=== PATIENT | male | born 1980 | race African-American/Black ===

== ENCOUNTER 2025-04-27 05:40 | Emergency (ER) | payer BC, SELFPAY ==
[2025-04-27 05:41] VITALS: BP 129/75; PULSE 83; RESP 16; TEMP 36.9; O2SAT 98; BMI 27.8
[2025-04-27] MEDS: Tetracaine 0.5% Ophthalmic Bottle 1 DRP OPHTHALMIC (06:09)
--- OUTSIDE RECORDS SUMMARY | 2025-04-27 07:15 | XMS RPT_ITS | CCD ---
Author Organization [facility] Care Team Providers Care Seed Sales Manager Name Role Phone Doroghazi DMD, Alejandra Unavailable Unavailab le Douglas OD, Nancy Unavailable Unavailable Doroghazi DMD, Alejandra Unavailable Unavailab le Ondobo TRANSLATOR INTERPRETER, Crow Unavailable Unavailable Doroghazi DMD, Alejandra Unavailable Unavailab le Douglas OD, Nancy Unavailable Unavailable Doroghazi DMD, Alejandra Unavailable Unavailab le Ondobo TRANSLATOR INTERPRETER, Crow Unavailable Unavailable Wilfrido Beth Attending Unavailab le *SELF, REFERRED Referring Unavailable PROVIDER, UNKNOWN Attending Unavailable PROVIDER, UNKNOWN Admitting Unavailable Unavailable Primary Care Provider UnavailDOMINICK Tello Attending Unavailable BASIA MURILLO Primary Care Unavaila ROCIO Daley Admitting Unavailable DOMINICK CUMMINGS Consulting Unavailable DARLING ACKERMAN Attending UnavailDARLING Keita Consulting Unavailabl e Generic Provider MD, No Assigned Pcp Primary Car e Provider Unavailable BETH AMEZCUAA Attending Unavailable TAMNILA AKINA Admitting Unavailable TAMBETH DOTSONA Attending Unavailable GENERIC PROVIDER, NO ASSIGNED PCP Primary Care Unavailable ABHAY PERDUE Attending Unavailable WANDY REGAN Attending Unavailable SAM BRANDT Attending Unavailable Allergies Allergy Classification Reported Allergen(s) Allergy Type Date of Onset Reaction(s) Facility (3 sources) penicillin; Translations: [PENICILLIN] drug allergy 8 [facility] (11 sources) Penicillins; Translations: [PENICILLINS] Propensity to adverse reactions to drug (disorder) [address] [facility] (2 sources) traMADol; Translations: [TRAMADOL] Drug Allergy 8 [facility] Other [place] [facility] Medications Current Medications Medication Drug Class(es) Dates Sig (Normalized) Sig (Original) Acetaminophen (1 source) Start: 12-01-2023 take 1 tablet by mouth every four hours as needed acetaminophen (Tylenol) tablet 650 mg acetaminophen 325 mg / HYDROcodone bitartrate 5 mg oral tablet (1 source) Opioid Agonist Start: 12-01-2023 take 1 tablet by mouth every six hours as needed HYDROcodone-acetami nophen ([place]) 5-325 mg per tablet 1 tablet acetaminophen 325 mg / oxyCODONE hydrochloride 7.5 mg oral tablet (2 sources) Opioid Agonist Start: 12-05-2023 End: 12-13-2023 take 1 tablet by mouth twice daily oxyCODONE-acetamino phen (Percocet) 7.5-325 mg tablet Indications: Sialoadenitis of submandibular gland , Sialolithiasis of submandibular gland Take 1 tablet by mouth 2 times a day for 7 days. 14 tablet 0 12/05/2023 12/13/2023 Discontinued (Stop Taking at Discharge) benzocaine 15 mg / menthol 3.6 mg oral lozenge (1 source) Standardized Chemical Allergen Start: 12-01-2023 1 lozenge, Mouth/Throat, Every 2 hour PRN, sore throat, Starting on 12/01/23 at 0032 calcium chloride 0.0014 meq/ml / potassium chloride 0.004 meq/ml / sodium chloride 0.103 meq/ml / sodium lactate 0.028 meq/ml injectable solution (1 source) Start: 12-13-2023 lactated Ringer's infusion chlorhexidine gluconate 1.2 mg/ml mouthwash (5 sources) Start: 12-13-2023 End: 01-12-2024 chlorhexidine (Peridex) 0.12 % solution Indications: Sialoadenitis of submandibular gland Use 15 mL in the mouth or throat if needed for wound care for up to 14 days. 120 mL 0 12/13/2023 12/13/2023 Discontinued (Reorder) Start: 11-28-2023 chlorhexidine (Peridex) 0.12 % solution SWISH AND SPIT WITH 15 TO 30 ML BY MOUTH IN THE MORNING AND IN THE EVENING FOR 1 WEEK THEN STOP 0 11/28/2023 Active ciprofloxacin 500 mg oral tablet (3 sources) Quinolone Antimicrobial Start: 12-05-2023 End: 12-15-2023 take 1 tablet by mouth twice daily ciprofloxacin (Cipro) 500 mg tablet Indications: Sialoadenitis of submandibular gland , Sialolithiasis of submandibular gland Take 1 tablet (500 mg) by mouth 2 times a day for 10 days. 20 tablet 0 12/05/2023 12/13/2023 Discontinued (Stop Taking at Discharge) clindamycin 300 mg oral capsule (7 sources) Lincosamide Antibacterial Start: 12-01-2023 End: 12-13-2023 take 1 capsule by mouth every six hours clindamycin (Cleocin) 300 mg capsule Indications: Submandibular abscess Take 1 capsule (300 mg) by mouth every 6 hours for 7 days. 28 capsule 0 12/01/2023 12/13/2023 Discontinued (Stop Taking at Discharge) Start: 12-01-2023 End: 12-01-2023 take 600 mg intravenously every six hours clindamycin (Cleocin) 600 mg in dextrose 5% water 50 mL Start: 11-30-2023 End: 11-30-2023 clindamycin in D5W (Cleocin) IVPB 900 mg cyclobenzaprine hydrochloride 10 mg oral tablet (1 source) Muscle Relaxant Start: 06-12-2018 End: 07-18-2018 take 1 tablet by mouth once daily as needed for muscle spasms cyclobenzaprine 10 mg tablet take 1 tablet by oral route every day as needed for muscle spasm 10 MG - Active dexamethasone phosphate 10 mg/ml injectable solution (2 sources) Corticosteroid Start: 12-01-2023 dexAMETHasone (Decadron) injection 10 mg Start: 12-01-2023 End: 12-01-2023 dexAMETHasone (Decadron) inj ection 10 mg dextromethorphan hydrobromide 2 mg/ml / guaiFENesin 20 mg/ml oral solution (1 source) Uncompetitive H-acgmuo-A-aspartate Receptor Antagonist, Sigma-1 Agonist Start: 12-01-2023 take 5 mL by mouth every four hours as needed 5 mL, oral, Every 4 hours PRN, cough, Starting on 12/01/23 at 0032 12 hr guaiFENesin 600 mg extended release oral tablet (1 source) Start: 12-01-2023 take 600 mg by mouth every twelve hours as needed for congestion 600 mg, oral, Every 12 hours PRN, congestion, Starting on 12/01/23 at 0032 Administer with plenty of fluids to ensure proper action. Do not crush, chew, or split. 1 ml HYDROmorphone hydrochloride 1 mg/ml cartridge (2 sources) Opioid Agonist Start: 12-13-2023 HYDROmorphone (Dilaudid) injection 0.5 mg Start: 12-13-2023 HYDROmorphone (Dilaudid) injection 0.2 mg ibuprofen 800 mg oral tablet (1 source) Nonsteroidal Anti-inflammatory Drug Start: 06-12-2018 End: 07-18-2018 take 1 tablet by mouth three times daily at mealtime ibuprofen 800 mg tablet take 1 tablet by oral route 3 times every day with food 800 MG - Active 1 ml ketorolac tromethamine 30 mg/ml injection (2 sources) Nonsteroidal Anti-inflammatory Drug, Cyclooxygenase Inhibitor Start: 11-30-2023 End: 12-02-2023 take 15 mg intravenously every eight hours as needed ketorolac (Toradol) injection 15 mg labetalol hydrochloride 5 mg/ml injectable solution (1 source) beta-Adrenergic Goran Start: 12-13-2023 labetaloL (Normodyne,Tranda te) injection 5 mg loratadine 10 mg oral tablet (2 sources) Start: 08-05-2019 take 1 tablet by mouth once daily loratadine (Claritin) 10 mg tablet Take 1 tablet (10 mg) by mouth once daily. 0 08/05/2019 Active omeprazole 20 mg delayed release oral capsule (2 sources) Proton Pump Inhibitor Start: 04-28-2022 take 1 capsule by mouth once daily omeprazole (PriLOSEC) [address] capsule Take 1 capsule (20 mg) by mouth once daily. 0 04/28/2022 Active 2 ml ondansetron 2 mg/ml injection (1 source) Serotonin-3 Receptor Antagonist Start: 12-13-2023 ondansetron (Zofran) injection 4 mg ondansetron ODT (Zofran-ODT) disintegrating tablet 4 mg (1 source) Start: 12-01-2023 take 1 tablet by mouth every eight hours as needed ondansetron ODT (Zofran-ODT) disintegrating tablet 4 mg oxyCODONE hydrochloride 5 mg oral tablet (1 source) Opioid Agonist Start: 12-13-2023 take 1 tablet by mouth every six hours as needed oxyCODONE (Roxicodone) immediate release tablet 5 mg oxygen (O2) therapy (1 source) Start: 12-13-2023 oxygen (O2) therapy pantoprazole 40 mg injection (1 source) Proton Pump Inhibitor Start: 12-01-2023 End: 12-04-2023 pantoprazole (ProtoNix) injection 40 mg polyethylene glycol [id number] mg powder for oral solution (1 source) Osmotic Laxative Start: 12-01-2023 take 17 g by mouth every twenty-four hours as needed 17 g, oral, Daily PRN, constipation, Starting on 12/01/23 at 0032 Bowel Regimen - for prevention of constipation. predniSONE 20 mg oral tablet (5 sources) Start: 12-02-2023 End: 12-13-2023 predniSONE (Deltasone) 20 mg tablet Indications: Submandibular abscess Take 2 tablets (40 mg) by mouth once daily for 7 days. Do not start before December 02, 2023. 14 tablet 0 12/02/2023 12/13/2023 Discontinued (Stop Taking at Discharge) Start: 12-01-2023 End: 12-08-2023 predniSONE (Deltasone) table t 40 mg promethazine (Phenergan) 6.25 mg in sodium chloride 0.9% 50 mL IV (1 source) Start: 12-13-2023 promethazine (Phenergan) 6.25 mg in sodium chloride 0.9% 50 mL IV raNITIdine 150 mg oral tablet (1 source) Histamine-2 Receptor Antagonist Start: 06-12-2018 End: 07-18-2018 take 1 tablet by mouth twice daily as needed ranitidine 150 mg tablet take 1 tablet by oral route 2 times every day as needed 150 MG - Active 1000 ml sodium chloride 9 mg/ml injection (2 sources) Start: 11-30-2023 End: 12-01-2023 take 100 mL intravenously every hour 100 mL/hr, intravenous, Continuous, Starting on 12/01/23 at 0035, For 12 hours sulfamethoxazole 800 mg / trimethoprim 160 mg oral tablet (1 source) Dihydrofolate Reductase Inhibitor Antibacterial, Sulfonamide Antimicrobial Start: 12-13-2023 End: 12-20-2023 take 1 tablet by mouth twice daily sulfamethoxazole- trimethoprim (Bactrim DS) 800-160 mg tablet Indications: Sialoadenitis of submandibular gland Take 1 tablet by mouth 2 times a day for 7 days. 14 tablet 0 12/13/2023 12/20/2023 Active traMADol hydrochloride 50 mg oral tablet (1 source) Opioid Agonist Start: 12-13-2023 End: 12-18-2023 take 1 tablet by mouth every six hours for pain traMADol (Ultram) 50 mg tablet Indications: Sialoadenitis of submandibular gland Take 1 tablet (50 mg) by mouth every 6 hours if needed for severe pain (7 - 10) for up to 5 days. 15 tablet 0 12/13/2023 12/18/2023 Active Completed/Discontinued Medications Medication Drug Class(es) Dates Sig (Normalized) Sig (Original) iohexol (OMNIPaque) 350 mg iodine/mL solution 75 mL (1 source) Start: 11-30-2023 End: 11-30-2023 iohexol (OMNIPaque) 350 mg iodine/mL solution 75 mL lidocaine hydrochloride 20 mg/ml mucous membrane topical solution (1 source) Antiarrhythmic, Amide Local Anesthetic Start: 11-30-2023 End: 11-30-2023 lidocaine (Xylocaine) 2 % mouth solution 1.25 mL Problems Active Problems Problem Classification Problem Date Documented Date Episodic/Chronic Blindness and vision defects (6 sources) Myopia, bilateral; Translations: [Regular astigmatism, bilateral] Episodic Diseases of mouth; excluding dental (20 sources) Abscess of submandibular region; Translations: [Cellulitis and abscess of mouth] Onset: 11-30-2023 11-30-2023 Episodic Esophageal disorders (1 source) Gastro-esophageal reflux disease without esophagitis Chronic Hemorrhoids (2 sources) Perianal venous thrombosis; Translations: [Perianal venous thrombosis] Onset: 03-01-2024 Episodic Immunizations and screening for infectious disease (1 source) Encounter for immunization Episodic Lymphadenitis (8 sources) Submandibular lymphadenopathy; Translations: [Localized enlarged lymph nodes] Onset: 11-30-2023 12-01-2023 Episodic Medical examination/evaluatio n (3 sources) Routine general medical examination at a health care facility Episodic Other nervous system disorders (1 source) Other chronic pain; Translations: [Other chronic pain] Onset: 09-19-2017 Chronic Other skin disorders (1 source) Vitiligo Episodic Schizophrenia and other psychotic disorders (8 sources) Paranoid type schizophrenia, unspecified; Translations: [Paranoid schizophrenia] Onset: 04-22-2010 Chronic Spondylosis; intervertebral disc disorders; other back problems (2 sources) Low back pain; Translations: [Low back pain] Onset: 09-19-2017 Episodic Substance-related disorders (1 source) Nicotine dependence, unspecified, uncomplicated Chronic Unclassified (1 source) Body mass index (BMI) 28.0-28.9, adult Onset: 06-12-2018 06-12-2018 Episodic Past or Other Problems Problem Classification Problem Date Documented Da te Episodic/Chronic Disorders of teeth and jaw (20 sources) Dental caries on pit and fissure surface penetrating into pulp; Translations: [Encounter for dental examination and cleaning without abnormal findings] Onset: 09-24-2017 12-26-2017 Episodic Unclassified (2 sources) Onset: 12-06-2023 12-06-2023 Results Test Name Value Interpretation Reference Range Facility CONSULTon 03-02-2024 CONSULT ------ -- Attestation signed by Indigo Moncada MD at 03/03/2024 9:23 AM I agree with the above plan. -- [facility] General Surgery CONSULTATION Reason for Consult: external thrombosed hemorrhoid History of Present Illness: Leif Mcdonnell is a 43 y.o. male presenting with an external thrombosed hemorrhoid. Patient reports he first noticed painful mass near anal sphincter around 3 days ago. Patient states that mass initially developed after bowel movement following eating central african food. Patient reports he had straining with a bowel movement. He initially though the mass was an abscess and utilized warm compresses with minimal symptomatic relief. Patient denies rectal bleeding and prior hemorrhoids. Pt had his external hemorrhoid lanced at bedside yesterday, 03/01/2024, by general surgery at [facility] ED. Pt presented again today with worsening pain at the are. Pt had not taken any analgesics on discharge and did not have packing's for the wound. Pt denies fever and chills. 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 Pt unable to do his job due to the pain associated with the thrombosed hemorrhoid and recent lancing. Review of Systems As stated in the HPI otherwise 12 points ROS negative History reviewed. No pertinent past medical history. Past Surgical History: Procedure Laterality Date MOUTH SURGERY on salvitory gland Allergies Allergen Reactions Penicillins Anaphylaxis No current facility-administered medications for this encounter. Current Outpatient Medications: acetaminophen (Tylenol) 500 mg tablet, Take 2 tablets (1,000 mg) by mouth every 6 (six) hours if needed for mild pain (1-3 pain score)., Disp: 180 tablet, Rfl: 0 ibuprofen 800 mg tablet, Take 1 tablet (800 mg) by mouth every 8 (eight) hours if needed for mild pain (1-3 pain score)., Disp: 90 tablet, Rfl: 0 oxyCODONE (Roxicodone) 5 mg immediate release tablet, Take 1 tablet (5 mg) by mouth every 6 (six) hours if needed for severe pain (8-10 pain score) for up to 3 days., Disp: 12 tablet, Rfl: 0 sennosides-docusate sodium (Delmy-Colace) 8.6-50 mg tablet, Take 1 tablet by mouth in the morning for 14 days., Disp: 14 tablet, Rfl: 0 Social History Socioeconomic History Marital status: Single Spouse name: Not on file Number of children: Not on file Years of education: Not on file Highest education level: Not on file Occupational History Not on file Tobacco Use Smoking status: Every Day Types: Cigarettes, Cigars Smokeless tobacco: Never Substance and Sexual Activity Alcohol use: Yes Comment: socially Drug use: Not Currently Sexual activity: Not on file Other Topics Concern Not on file Social History Narrative Not on file Social Determinants of Health Financial Resource Strain: Not on file Food Insecurity: Not on file Transportation Needs: Not on file Physical Activity: Not on file Stress: Not on file Social Connections: Not on file Intimate Partner Violence: Unknown (03/01/2024) [place] Safety & [place] Fear of Current or Ex-Partner: Not on file Emotionally Abused: Not on file Physically Abused: Not on file Sexually Abused: Not on file Physically or Sexually Abused: Not on file Housing Stability: Not on file No family history on file. Physical Exam Vitals and nursing note reviewed. Exam conducted with a real estate transaction coordinator present. Constitutional: General: He is not in acute distress. Appearance: He is well-developed. HENT: Head: Normocephalic and atraumatic. Eyes: Conjunctiva/sclera: Conjunctivae normal. Cardiovascular: Rate and Rhythm: Normal rate and regular rhythm. Heart sounds: No murmur heard. Pulmonary: Effort: Pulmonary effort is normal. No respiratory distress. Breath sounds: Normal breath sounds. Abdominal: Palpations: Abdomen is soft. Tenderness: There is no abdominal tenderness. Genitourinary: Rectum: External hemorrhoid present. Comments: External hemorrhoid with incision. Without any drainage, surrounding erythema or warmth Musculoskeletal: General: No swelling. Cervical back: Neck supple. Skin: General: Skin is warm and dry. Capillary Refill: Capillary refill takes less than 2 seconds. Neurological: Mental Status: He is alert. Psychiatric: Mood and Affect: Mood normal. Vital Signs: Blood pressure 124/65, pulse 59, temperature 37.2 ???C (99 ???F), temperature source Temporal, resp. rate 20, height 1.753 m (5' 9), weight 80.4 kg (177 lb 3.2 oz), SpO2 99 %. Admission Weight: Weight: 80.4 kg (177 lb 3.2 oz) Labs: No results found for: WBC, HGB, HCT, MCV, PLT No results found for: GLU, CALCIUM, NA, K, CO2, CL, BUN, CREATININE No results found for: AMYLASE No results found for: LIPASE No results fo (more content not included)... Normal [facility] EDNURSon 03-02-2024 EDNURS Patient here yesterd ay for hemorrhoids. Patient is stating increase pain and unable to sleep. Patient further states the guaze needs to be changed. Normal [facility] EDPROVon 03-02-2024 EDPROV ------ -- Attestation signed by Sam Brandt DO at 03/02/2024 2:16 PM 2022 Emergency Medicine Coding Guide from [employer] on 03/02/2024 All calculations should be rechecked by clinician prior to use RESULT SUMMARY: 4 Estimated Level of Service Problems: Low (3) Risk: Moderate (4) Data: Moderate (4) NARRATIVE MDM: This patient's problem complexity is Low as patient: has 1 acute illness at its baseline/not worsening. This patient's risk is Moderate due to: overall presentation requiring evaluation for a potentially Moderate-risk process. This patient's data complexity is Moderate due to: -external notes reviewed -discussion of management/testing with external professional INPUTS: Number and Complexity --> 11 = 3: stable, acute illness (k) Risk level --> 3 = Moderate Tests ordered --> 0 = 0 Tests results reviewed (excluding labs) --> 0 = 0 Prior external notes reviewed --> 1 = 1 Assessment requiring and independent historian --> 0 = No Independent interpretation of tests --> 0 = No Discussed management/test interpretation w/external professional --> 1 = Yes -- HPI Chief Complaint Patient presents with Post-op Problem HPI 43-year-old male with no significant past medical history presenting due to pain around incision site. Patient presented to ER last night and was diagnosed with thrombosed hemorrhoid. Patient had incision of hemorrhoid and has had worsening pain since then. Patient states that he noticed the hemorrhoid approximately 2 days ago and it worsened yesterday throughout the day. Patient denies any other symptoms at this time. [place] Coma Scale Score: 15 Patient History No past medical history on file. Past Surgical History: Procedure Laterality Date MOUTH SURGERY on salvitory gland No family history on file. Social History Tobacco Use Smoking status: Every Day Types: Cigarettes, Cigars Smokeless tobacco: Never Substance Use Topics Alcohol use: Yes Comment: socially Drug use: Not Currently Review of Systems Review of Systems Constitutional: Negative for chills and fever. HENT: Negative for ear pain and sore throat. Eyes: Negative for pain and visual disturbance. Respiratory: Negative for cough and shortness of breath. Cardiovascular: Negative for chest pain and palpitations. Gastrointestinal: Positive for rectal pain. Negative for abdominal pain and vomiting. Genitourinary: Negative for dysuria and hematuria. Musculoskeletal: Negative for arthralgias and back pain. Skin: Negative for color change and rash. Neurological: Negative for seizures and syncope. All other systems reviewed and are negative. Physical Exam ED Triage Vitals [03/02/24 0941] Temp Heart Rate Resp BP 37.2 ???C (99 ???F) 100 18 (!) 168/95 SpO2 Temp Source Heart Rate Source Patient Position 96 % Temporal Monitor Sitting BP Location FiO2 (%) Left arm -- Physical Exam Vitals and nursing note reviewed. Exam conducted with a real estate transaction coordinator present. Constitutional: General: He is not in acute distress. Appearance: He is well-developed. HENT: Head: Normocephalic and atraumatic. Eyes: Conjunctiva/sclera: Conjunctivae normal. Cardiovascular: Rate and Rhythm: Normal rate and regular rhythm. Heart sounds: No murmur heard. Pulmonary: Effort: Pulmonary effort is normal. No respiratory distress. Breath sounds: Normal breath sounds. Abdominal: Palpations: Abdomen is soft. Tenderness: There is no abdominal tenderness. Genitourinary: Rectum: External hemorrhoid present. Comments: External hemorrhoid with incision. Without any drainage, surrounding erythema or warmth Musculoskeletal: General: No swelling. Cervical back: Neck supple. Skin: General: Skin is warm and dry. Capillary Refill: Capillary refill takes less than 2 seconds. Neurological: Mental Status: He is alert. Psychiatric: Mood and Affect: Mood normal. Procedures ED Course & MDM Diagnoses as of 03/02/24 1101 Thrombosed external hemorrhoid Medical Decision Making Reviewed patient's chart and patient had hemorrhoid excised last night. Patient was not discharged with any medications at that time. On arrival patient vital signs stable within normal limits. On exam patient has excised external hemorrhoid without any drainage, erythema, or warmth. Will do pain control and have surgery evaluate patient. Surgery evaluated patient and no further recommendations at this time. Recommended multimodal pain control at home sitz bath's and 4 days off of work. Will give follow-up for general surgery. Sugar patient to return with any new or worsening symptoms. Shared decision making with patient agreeable plan and discharge. Chichi Gould (-griselda), documented on behalf of Dr. Brandt on 03/02/2024 at 10:58 AM. (more content not included)... Normal [facility] CONSULTon 03-01-2024 CONSULT Reason For Consult External hemorrhoid Referring Provider: Dr. Regan History Of Present Illness Leif Mcdonnell is a 43 y.o. male presenting with hemorrhoid. Patient reports he first noticed painful mass near anal sphincter approximately 2 days ago. Patient states that mass initially developed after bowel movement following eating central [place]rican food. Patient reports he did strain with bowel movement. He initially though the mass was an abscess and utilized warm compresses with minimal symptomatic relief. Tonight patient reports the pain woke him from sleep leading to his presentation in ED. Patient denies bleeding per rectum or prior hemorrhoids. Past Medical History He has no past medical history on file. Surgical History He has a past surgical history that includes Mouth surgery. Family History No family history on file. Social History He reports that he has been smoking cigarettes and cigars. He has never used smokeless tobacco. He reports current alcohol use. He reports that he does not currently use drugs. Allergies Penicillins Medications (Not in a hospital admission) No current facility-administered medications for this encounter. Review of Systems Review of Systems Constitutional: Negative for chills, fatigue and fever. Respiratory: Negative for chest tightness and shortness of breath. Cardiovascular: Negative for chest pain and palpitations. Gastrointestinal: Positive for rectal pain. Negative for abdominal distention, abdominal pain, anal bleeding, nausea and vomiting. Genitourinary: Negative for dysuria and hematuria. Musculoskeletal: Negative for neck pain and neck stiffness. Skin: Negative for rash and wound. Neurological: Negative for dizziness, weakness and numbness. Psychiatric/Behavioral: Negative for agitation and confusion. Last Recorded Vitals Patient Vitals for the past 24 hrs: BP Temp Temp src Pulse Resp SpO2 Height Weight 03/01/24 0512 143/66 -- -- 82 18 94 % -- -- 03/01/24 0457 143/70 -- -- 80 16 97 % -- -- 03/01/24 0411 120/63 -- -- 77 18 95 % -- -- 03/01/24 0324 138/89 36.8 ???C (98.2 ???F) Oral 79 16 97 % 1.753 m (5' 9) 80.4 kg (177 lb 3.2 oz) Physical Exam Physical Exam Constitutional: General: He is not in acute distress. Appearance: He is not toxic-appearing. HENT: Head: Normocephalic and atraumatic. Mouth/Throat: Mouth: Mucous membranes are moist. Pharynx: Oropharynx is clear. Eyes: Pupils: Pupils are equal, round, and reactive to light. Cardiovascular: Rate and Rhythm: Normal rate and regular rhythm. Pulmonary: Effort: Pulmonary effort is normal. No respiratory distress. Abdominal: General: Abdomen is flat. There is no distension. Palpations: Abdomen is soft. Genitourinary: Comments: Hemorrhoid present posterior midline, thrombosed. Tender to the touch. Musculoskeletal: Right lower leg: No edema. Left lower leg: No edema. Skin: General: Skin is warm and dry. Capillary Refill: Capillary refill takes less than 2 seconds. Coloration: Skin is not jaundiced. Neurological: General: No focal deficit present. Mental Status: He is alert and oriented to person, place, and time. Relevant Results No results found for any previous visit. Assessment/Plan Active Problems: There are no active Hospital Problems. Assessment: Leif Mcdonnell is a 43 year old male presenting with complaint of thrombosed external hemorrhoid. Plan: -Patient case, plan of care discussed with Dr. Aguirre. -Plan to discuss with Dr. Moncada, colorectal surgeon, further recommendations pending. 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 Patient noticed it yesterday, but was awoken form sleep tonight with extreme pain and came to the ED. No past medical history on file. [facility] EDPROVon 03-01-2024 EDPROV HPI Chief Complaint Patient presents with Abscess Delmy area 43-year-old male with no significant past medical history presents the ER for concern of boil in the perianal region for 1 to 2 days. Pain worsened this morning. Patient denies fevers chills constipation straining with bowel movements bleeding discharge abdominal pain nausea or vomiting. Patient denies any anal intercourse or anything in the rectum. Patient reports he took ibuprofen at 7:30 PM for his pain. Patient denies history of diabetes or IV drug use. History provided by: Patient [place] Coma Scale Score: 15 Patient History History reviewed. No pertinent past medical history. Past Surgical History: Procedure Laterality Date MOUTH SURGERY on salvitory gland No family history on file. Social History Tobacco Use Smoking status: Every Day Types: Cigarettes, Cigars Smokeless tobacco: Never Substance Use Topics Alcohol use: Yes Comment: socially Drug use: Not Currently Review of Systems Review of Systems Constitutional: Negative for chills, fatigue and fever. HENT: Negative for ear pain and sore throat. Eyes: Negative for pain and visual disturbance. Respiratory: Negative for cough, chest tightness and shortness of breath. Cardiovascular: Negative for chest pain, palpitations and leg swelling. Gastrointestinal: Positive for rectal pain. Negative for abdominal pain, anal bleeding, blood in stool, constipation, diarrhea, nausea and vomiting. Genitourinary: Negative for dysuria, flank pain, frequency and hematuria. Musculoskeletal: Negative for arthralgias, back pain and neck pain. Skin: Negative for color change and rash. Neurological: Negative for dizziness, seizures, syncope, facial asymmetry, speech difficulty, weakness, light-headedness, numbness and headaches. Psychiatric/Behavioral: Negative for confusion. All other systems reviewed and are negative. Physical Exam ED Triage Vitals [03/01/24 0324] Temp Heart Rate Resp BP 36.8 ???C (98.2 ???F) 79 16 138/89 SpO2 Temp Source Heart Rate Source Patient Position 97 % Oral Monitor -- BP Location FiO2 (%) Left arm -- Physical Exam Vitals and nursing note reviewed. Exam conducted with a real estate transaction coordinator present. Constitutional: General: He is not in acute distress. Appearance: Normal appearance. He is well-developed. He is not ill-appearing, toxic-appearing or diaphoretic. HENT: Head: Normocephalic and atraumatic. Nose: Nose normal. No congestion or rhinorrhea. Mouth/Throat: Mouth: Mucous membranes are moist. Pharynx: Oropharynx is clear. No oropharyngeal exudate or posterior oropharyngeal erythema. Eyes: General: No scleral icterus. Right eye: No discharge. Left eye: No discharge. Extraocular Movements: Extraocular movements intact. Conjunctiva/sclera: Conjunctivae normal. Pupils: Pupils are equal, round, and reactive to light. Cardiovascular: Rate and Rhythm: Normal rate and regular rhythm. Pulses: Normal pulses. Heart sounds: Normal heart sounds. No murmur heard. Pulmonary: Effort: Pulmonary effort is normal. No respiratory distress. Breath sounds: Normal breath sounds. Chest: Chest wall: No tenderness. Abdominal: General: Bowel sounds are normal. There is no distension. Palpations: Abdomen is soft. Tenderness: There is no abdominal tenderness. There is no right CVA tenderness, left CVA tenderness, guarding or rebound. Genitourinary: Comments: MS for Dolores present as real estate transaction coordinator. Patient with thrombosed hemorrhoid no evidence of cellulitis, abscess. Thrombosed hemorrhoid is tender to palpation. No bleeding of the hemorrhoid. Musculoskeletal: General: No swelling, tenderness, deformity or signs of injury. Normal range of motion. Cervical back: Normal range of motion and neck supple. Right lower leg: No edema. Left lower leg: No edema. Skin: General: Skin is warm and dry. Capillary Refill: Capillary refill takes less than 2 seconds. Findings: No rash. Neurological: General: No focal deficit present. Mental Status: He is alert and oriented to person, place, and time. Cranial Nerves: No cranial nerve deficit. Sensory: No sensory deficit. Motor: No weakness. Gait: Gait normal. Psychiatric: Mood and Affect: Mood normal. Procedures ED Course & MDM ED Course as of 03/02/24 0924 Sat Mar 01, 2024 0447 Discussed with surgery in detail. [RH] 0612 Surgery reports they are staffing with riana attending Dr. Moncada. [RH] 0614 Patient was sleeping pain controlled. [RH] 0807 Surgery reports plan to incise thrombosed hemorrhoid [RH] 0905 Signed out to surgery and oncoming attending dr encinas , surgery plans to incise the thrombosed hemorrhoid , dispo per surgery plans/ recommendations [RH] ED Course User Index [RH] Wandy Regan MD Diagnoses as of 03/02/24 0924 Thrombosed hemorrhoids Medical Decision Making Amount and/or Complexity of Data Reviewed Discussion of manage (more content not included)... Normal [facility] ED NOTEon 12-26-2023 ED NOTE HNO ID: [id number] Author: JC REVELES RN Service: ? Author Type: Registered Nurse Type: ED Notes Filed: 12/26/2023 21:24 Note Text: Patient dicsharged to home. Discharge instructions, medications, and follow up care reviewed, patient verbalized understanding. [facility] ED NOTE HNO ID: [id number] Author: ANTHONY OLIVER RN Service: ? Author Type: Registered Nurse Type: ED Notes Filed: 12/26/2023 19:53 Note Text: Presented to ED with c/o hole in mouth after surgery. States he had a left salivary stone removed on 12/12. States he noticed the wound opened up today. Pt has minimal pain at this time, but is afraid to eat as it may become infected if the wound is open. Pt AANDOx3 and ambulatory at this time. [facility] ED PROV NOTEon 12-26-2023 ED PROV NOTE HNO ID: [id number] Author: LORETO BEDOLLA PA-C Service: ? Author Type: Physician Capsule Machine Operator Type: ED Provider Notes Filed: 12/26/2023 22:23 Note Text: ED Provider Note Patient Name: Abiodun Mcdonnell : 1980 SERVICE DATE: 12/26/23 History Patient presents with: Mouth/Lip Problem 41-year-old male presents emergency department for wound check. Patient reports history of sialadenitis s/p surgery a few weeks ago. Reports that he was on antibiotics for 7 days. Patient reports he is afraid to eat secondary to concern for developing infection. Patient reports small wound to bottom of his mouth on the left side. No new pain or discharge. No fever or chills. PAST MEDICAL HISTORY Diagnosis Date Psychiatric disorder No past surgical history on file. No family history on file. Social History Tobacco Use Smoking status: Every Day Packs/day: .5 Types: Cigarettes Smokeless tobacco: Not on file Substance and Sexual Activity Alcohol use: Yes Comment: on occasion Drug use: No Sexual activity: Not on file ALLERGIES Allergen Reactions Penicillins Anaphylaxis Review of Systems Constitutional: Negative for chills, diaphoresis, fatigue and fever. Skin: Positive for wound. Negative for rash. Physical Exam Vitals [12/26/23 1950] BP Pulse Temp Temp src Resp SpO2 Weight Height 135/84 66 36.7 ?C (98.1 ?F) Oral 16 98 % 89.4 kg (197 lb) -- Physical Exam Vitals and nursing note reviewed. Constitutional: Appearance: He is well-developed. HENT: Head: Comments: Healing wound to left submandibular space. No evidence of abscess or erythema. No discharge. Eyes: Conjunctiva/sclera: Conjunctivae normal. Neck: Trachea: Trachea normal. No tracheal deviation. Cardiovascular: Rate and Rhythm: Normal rate. Pulmonary: Effort: Pulmonary effort is normal. Skin: General: Skin is warm. Findings: No rash. Neurological: Mental Status: He is alert and oriented to person, place, and time. Psychiatric: Behavior: Behavior normal. Diagnostic Testing ED Labs Ordered and Reviewed - No data to display Procedures ED Course / Clinical Impression Clinical Impressions as of 12/26/23 2219 Sialoadenitis - history of Wound of mucosa, subsequent encounter MDM / Disposition / Plan Vital signs were reviewed. Triage records were reviewed. Medical records were reviewed. Nursing notes were reviewed and incorporated. Initial VS: BP 129/81 Pulse 70 Temp 36.7 ?C (98.1 ?F) (Oral) Resp 17 Wt 89.4 kg (197 lb) SpO2 98% BMI 28.27 kg/m? 43 year old male presents with wound check. Physical exam revealed Healing wound to left submandibular space. No evidence of abscess or erythema. No discharge. Overall wound appears to be healing appropriately. Will give short prescription of antibiotics for prophylactic coverage. Patient to follow-up with physician as scheduled outpatient. No evidence of systemic infection. Patient expressed understanding and consented to the above plan. No barriers of communication were apparent and I answered all questions. SIGNATURE: PAULA Preston RYAN 12/26/232222 [facility] Surgical pathology studyon 0 12-13-2023 Surgical pathology study Pathology report.total SEE COMMENT Surgical Pathology Case: [id number] Authorizing Provider: Keyana Amezcua MD Collected: 12/13/2023 0843 Ordering Location: [facility] Received: 12/13/2023 1932 [facility] OR Pathologist: Uche Wall MD Specimen: CALCULUS, LEFT SUBMANDIBULAR GLAND STONE Path report.final diagnosis SEE COMMENT Left submandibular gland stone: -- Gross examination only. Laboratory comment By the signature on this report, the individual or group listed as making the Final Interpretation/Diagnosis certifies that they have reviewed this case. Path report.relevant Hx SEE COMMENT Pre-op diagnosis: Salivary stone [K11.5] Path report.gross observation SEE COMMENT A: Received in formalin, labeled with the patient's name and hospital number and left submandibular gland stone, is a calculus measuring 2.2 x 1.6 x 0.8 cm. Tissue is not received with the specimen. A photograph has been taken. The specimen is for gross examination only. No sections are submitted. SMS/RCC Normal [facility] Comment on above: Order Comment: Pre-o p diagnosis: Salivary stone [K11.5] Basic metabolic 2000 panelon 12-01-2023 Anion gap [Moles/Vol] 9 mmol/L Normal <=19 [facility] Comment on above: Performed By: #### 2 4321-2 #### NISA Reis ([id number]) [facility] ([facility]) [address] [place] [address] Calcium [Mass/Vol] 8.8 mg/dL Normal 8.5-10.4 [facility] Comment on above: Performed By: #### 2 4321-2 #### NISA Reis ([id number]) [facility] ([facility]) [address] [place] [address] Chloride [Moles/Vol] 106 mmol/L Normal 97-107 [facility] Comment on above: Performed By: #### 2 4321-2 #### NISA Reis ([id number]) [facility] ([facility]) [address] [place] [address] CO2 [Moles/Vol] 24 mmol/L Normal 24-31 [facility] Comment on above: Performed By: #### 2 4321-2 #### NISA Reis ([id number]) [facility] ([facility]) [address] [place] [address] Creatinine [Mass/Vol] 0.90 mg/dL Normal 0.40-1.60 [facility] Comment on above: Performed By: #### 2 432-2 #### NISA Reis ([id number]) [facility] ([facility]) [address] [place] [address] GFR/1.73 sq M.predicted MDRD (S/P/Bld) [Vol rate/Area] mL/min/{1.73_m2} Normal >60 [facility] Comment on above: Result Comment: Calc ulations of estimated GFR are performed using the 2020 CKD-EPI Study Refit equation without the race variable for the IDMS-Traceable creatinine methods. https://jasn.asnjournals.org/content/early//ASN.4831110 988 Performed By: #### 2 4321-2 #### NISA Reis ([id number]) [facility] ([facility]) [address] [place] [address] Glucose [Mass/Vol] 103 mg/dL High 65-99 [facility] Comment on above: Performed By: #### 2 4321-2 #### NISA Reis ([id number]) [facility] ([facility]) [address] [place] [address] Potassium [Moles/Vol] 4.1 mmol/L Normal 3.4-5.1 [facility] Comment on above: Performed By: #### 2 4321-2 #### NISA Reis ([id number]) [facility] ([facility]) [address] [place] [address] Sodium [Moles/Vol] 139 mmol/L Normal 133-145 [facility] Comment on above: Performed By: #### 2 4321-2 #### NISA Reis ([id number]) [facility] ([facility]) [address] [place] [address] Urea nitrogen [Mass/Vol] 12 mg/dL Normal 8-25 [facility] Comment on above: Performed By: #### 2 4321-2 #### NISA Reis ([id number]) [facility] ([facility]) [address] [place] [address] Anion gap [Moles/Vol] 9 mmol/L NINF - 19 mmol/L [facility] Calcium [Mass/Vol] 8.8 mg/dL 8.5 - 10. 4 mg/dL [facility] Chloride [Moles/Vol] 106 mmol/L 97 - 10 7 mmol/L [facility] CO2 [Moles/Vol] 24 mmol/L 24 - 31 mmol/L [facility] Creatinine [Mass/Vol] 0.90 mg/dL 0.40 - 1.60 mg/dL [facility] eGFR - PINF [facility] Comment on above: Calculations of lee mated GFR are performed using the 2020 CKD-EPI Study Refit equation without the race variable for the IDMS-Traceable creatinine methods. https://jasn.asnjournals.org/content//ASN.5622743 988 Glucose [Mass/Vol] 103 mg/dL High 65 - 99 mg/dL [facility] Interpretation and review of laboratory results Abnormal [facility] Potassium [Moles/Vol] 4.1 mmol/L 3.4 - 5.1 mmol/L [facility] Sodium [Moles/Vol] 139 mmol/L 133 - 145 mmol/L [facility] Urea nitrogen [Mass/Vol] 12 mg/dL 8 - 25 mg/dL [facility] CBC panel Auto (Bld)on 11-30 Erythrocyte distribution width (RBC) [Ratio] 13.5 % Normal 11.5-14.5 [facility] Comment on above: Performed By: #### 5 8410-2 #### NISA Reis ([id number]) [facility] ([facility]) [address] [place] [address] Hematocrit (Bld) [Volume fraction] 42.5 % Normal 41.0-52.0 [facility] Comment on above: Performed By: #### 5 8410-2 #### NISA Reis ([id number]) [facility] ([facility]) [address] [place] [address] Hemoglobin (Bld) [Mass/Vol] 13.6 g/dL Normal 13.5-17.5 [facility] Comment on above: Performed By: #### 5 8410-2 #### NISA Reis ([id number]) [facility] ([facility]) [address] [place] [address] MCH (RBC) [Entitic mass] 27.4 pg Normal 26.0-34.0 [facility] Comment on above: Performed By: #### 5 8410-2 #### NISA Reis ([id number]) [facility] ([facility]) [address] [place] [address] MCHC (RBC) [Mass/Vol] 32.0 g/dL Normal 32.0-36.0 [facility] Comment on above: Performed By: #### 5 8410-2 #### NISA Reis ([id number]) [facility] ([facility]) [address] [place] [address] MCV (RBC) [Entitic vol] 86 fL Normal 80-100 [facility] Comment on above: Performed By: #### 5 8410-2 #### NISA Reis ([id number]) [facility] ([facility]) [address] [place] [address] Nucleated RBC/100 WBC (Bld) [Ratio] 0.0 /100 WBCs Normal 0.0-0.0 [facility] Comment on above: Performed By: #### 5 8410-2 #### NISA Reis ([id number]) [facility] ([facility]) [address] [place] [address] Platelets (Bld) [#/Vol] 245 x10*3/uL Normal 150-450 [facility] Comment on above: Performed By: #### 5 8410-2 #### NISA Reis ([id number]) [facility] ([facility]) [address] [place] [address] RBC (Bld) [#/Vol] 4.96 x10*6/uL Normal 4.50-5.90 [facility] Comment on above: Performed By: #### 5 8410-2 #### NISA Reis ([id number]) [facility] ([facility]) [address] [place] [address] WBC (Bld) [#/Vol] 11.1 x10*3/uL Normal 4.4-11.3 [facility] Comment on above: Performed By: #### 5 8410-2 #### NISA eRis ([id number]) [facility] ([facility]) [address] [place] [address] Erythrocyte distribution width (RBC) [Ratio] 13.5 % 11.5 - 14.5 % [facility] Hematocrit (Bld) [Volume fraction] 42.5 % 41.0 - 52.0 % [facility] Hemoglobin (Bld) [Mass/Vol] 13.6 g/dL 13.5 - 17.5 g/dL [facility] Interpretation and review of laboratory results Normal [facility] MCH (RBC) [Entitic mass] 27.4 pg 26.0 - 34.0 pg [facility] MCHC (RBC) [Mass/Vol] 32.0 g/dL 32.0 - 36.0 g/dL [facility] MCV (RBC) [Entitic vol] 86 fL 80 - 100 fL [facility] Nucleated RBC/100 WBC (Bld) [Ratio] 0.0 % [facility] Platelets (Bld) [#/Vol] 245 10*3/uL [facility] RBC (Bld) [#/Vol] 4.96 10*6/uL [facility] WBC (Bld) [#/Vol] 11.1 10*3/uL [facility] Basic metabolic 2000 panelon 11-30-2023 Anion gap [Moles/Vol] 10 mmol/L Normal <=19 [facility] Comment on above: Performed By: #### 2 4321-2 #### NISA Reis ([id number]) [facility] ([facility]) [address] [place] [address] Calcium [Mass/Vol] 9.1 mg/dL Normal 8.5-10.4 [facility] Comment on above: Performed By: #### 2 4321-2 #### NISA Reis ([id number]) [facility] ([facility]) [address] [place] [address] Chloride [Moles/Vol] 101 mmol/L Normal 97-107 [facility] Comment on above: Performed By: #### 2 4321-2 #### NISA Reis ([id number]) [facility] ([facility]) [address] [place] [address] CO2 [Moles/Vol] 26 mmol/L Normal 24-31 [facility] Comment on above: Performed By: #### 2 4321-2 #### NISA Reis ([id number]) [facility] ([facility]) [address] [place] [address] Creatinine [Mass/Vol] 1.10 mg/dL Normal 0.40-1.60 [facility] Comment on above: Performed By: #### 2 4321-2 #### NISA Reis ([id number]) [facility] ([facility]) [address] [place] [address] Glomerular filtration rate/1.73 sq M.predicted 86 mL/min/1.73m*2 Normal >60 [facility] Comment on above: Result Comment: Calc ulations of estimated GFR are performed using the 2020 CKD-EPI Study Refit equation without the race variable for the IDMS-Traceable creatinine methods. https://jasn.asnjournals.org/content//ASN.0174799 988 Performed By: #### 2 4321-2 #### NISA Reis ([id number]) [facility] ([facility]) [address] [place] [address] Glucose [Mass/Vol] 85 mg/dL Normal 65-99 [facility] Comment on above: Performed By: #### 2 4321-2 #### NISA Reis ([id number]) [facility] ([facility]) [address] [place] [address] Potassium [Moles/Vol] 3.6 mmol/L Normal 3.4-5.1 [facility] Comment on above: Performed By: #### 2 4321-2 #### NISA Reis ([id number]) [facility] ([facility]) [address] [place] [address] Sodium [Moles/Vol] 137 mmol/L Normal 133-145 [facility] Comment on above: Performed By: #### 2 4321-2 #### NISA Reis ([id number]) [facility] ([facility]) [address] [place] [address] Urea nitrogen [Mass/Vol] 14 mg/dL Normal 8-25 [facility] Comment on above: Performed By: #### 2 4321-2 #### NISA Reis ([id number]) [facility] ([facility]) [address] [place] [address] Anion gap [Moles/Vol] 10 mmol/L NINF - 19 mmol/L [facility] Calcium [Mass/Vol] 9.1 mg/dL 8.5 - 10. 4 mg/dL [facility] Chloride [Moles/Vol] 101 mmol/L 97 - 10 7 mmol/L [facility] CO2 [Moles/Vol] 26 mmol/L 24 - 31 mmol/L [facility] Creatinine [Mass/Vol] 1.10 mg/dL 0.40 - 1.60 mg/dL [facility] GFR/1.73 sq M.predicted among non-blacks MDRD (S/P/Bld) [Vol rate/Area] 86 mL/min/{1.73_m2} - PINF [facility] Comment on above: Calculations of lee mated GFR are performed using the 2020 CKD-EPI Study Refit equation without the race variable for the IDMS-Traceable creatinine methods. https://jasn.asnjournals.org/content//ASN.2982309 988 Glucose [Mass/Vol] 85 mg/dL 65 - 99 mg/dL [facility] Interpretation and review of laboratory results Normal [facility] Potassium [Moles/Vol] 3.6 mmol/L 3.4 - 5.1 mmol/L [facility] Sodium [Moles/Vol] 137 mmol/L 133 - 145 mmol/L [facility] Urea nitrogen [Mass/Vol] 14 mg/dL 8 - 25 mg/dL [facility] CBC W Auto Differential pane l (Bld)on 11-30-2023 Basophils (Bld) [#/Vol] 0.04 x10*3/uL Normal 0.00-0.10 [facility] Comment on above: Performed By: #### 5 7021-8 #### NISA Reis ([id number]) [facility] ([facility]) [address] [place] [address] Basophils/100 WBC (Bld) 0.4 % Normal 0.0-2.0 [facility] Comment on above: Performed By: #### 5 7021-8 #### NISA Reis ([id number]) [facility] ([facility]) [address] [place] [address] Eosinophils (Bld) [#/Vol] 0.09 x10*3/uL Normal 0.00-0.70 [facility] Comment on above: Performed By: #### 5 7021-8 #### NISA Reis ([id number]) [facility] ([facility]) [address] [place] [address] Eosinophils/100 WBC (Bld) 0.8 % Normal 0.0-6.0 [facility] Comment on above: Performed By: #### 5 7021-8 #### NISA Reis ([id number]) [facility] ([facility]) [address] [place] [address] Erythrocyte distribution width (RBC) [Ratio] 13.5 % Normal 11.5-14.5 [facility] Comment on above: Performed By: #### 5 7021-8 #### NISA Reis ([id number]) [facility] ([facility]) [address] [place] [address] Hematocrit (Bld) [Volume fraction] 39.9 % Low 41.0-52.0 [facility] Comment on above: Performed By: #### 5 7021-8 #### NISA Reis ([id number]) [facility] ([facility]) [address] [place] [address] Hemoglobin (Bld) [Mass/Vol] 12.9 g/dL Low 13.5-17.5 [facility] Comment on above: Performed By: #### 5 7021-8 #### NISA Reis ([id number]) [facility] ([facility]) [address] [place] [address] Immature granulocytes (Bld) [#/Vol] 0.03 x10*3/uL Normal 0.00-0.70 [facility] Comment on above: Performed By: #### 5 7021-8 #### NISA Reis ([id number]) [facility] ([facility]) [address] [place] [address] Immature granulocytes/100 WBC (Bld) 0.3 % Normal 0.0-0.9 [facility] Comment on above: Result Comment: Phylicia ture Granulocyte Count (IG) includes promyelocytes, myelocytes and metamyelocytes but does not include bands. Percent differential counts (%) should be interpreted in the context of the absolute cell counts (cells/UL). Performed By: #### 5 7021-8 #### NISA Reis ([id number]) [facility] ([facility]) [address] [place] [address] Lymphocytes (Bld) [#/Vol] 3.28 x10*3/uL Normal 1.20-4.80 [facility] Comment on above: Performed By: #### 5 7021-8 #### NISA Reis ([id number]) [facility] ([facility]) [address] [place] [address] Lymphocytes/100 WBC (Bld) 29.7 % Normal 13.0-44.0 [facility] Comment on above: Performed By: #### 5 7021-8 #### NISA Reis ([id number]) [facility] ([facility]) [address] [place] [address] MCH (RBC) [Entitic mass] 27.6 pg Normal 26.0-34.0 [facility] Comment on above: Performed By: #### 5 7021-8 #### NISA Reis ([id number]) [facility] ([facility]) [address] [place] [address] MCHC (RBC) [Mass/Vol] 32.3 g/dL Normal 32.0-36.0 [facility] Comment on above: Performed By: #### 5 7021-8 #### NISA Reis ([id number]) [facility] ([facility]) [address] [place] [address] MCV (RBC) [Entitic vol] 85 fL Normal 80-100 [facility] Comment on above: Performed By: #### 5 7021-8 #### NISA Reis ([id number]) [facility] ([facility]) [address] [place] [address] Monocytes (Bld) [#/Vol] 1.12 x10*3/uL High 0.10-1.00 [facility] Comment on above: Performed By: #### 5 7021-8 #### NISA Reis ([id number]) [facility] ([facility]) [address] [place] [address] Monocytes/100 WBC (Bld) 10.1 % Normal 2.0-10.0 [facility] Comment on above: Performed By: #### 5 7021-8 #### NISA Reis ([id number]) [facility] ([facility]) [address] [place] [address] Neutrophils (Bld) [#/Vol] 6.50 x10*3/uL Normal 1.20-7.70 [facility] Comment on above: Result Comment: Perc ent differential counts (%) should be interpreted in the context of the absolute cell counts (cells/uL). Performed By: #### 5 7021-8 #### NISA Reis ([id number]) [facility] ([facility]) [address] [place] [address] Neutrophils/100 WBC (Bld) 58.7 % Normal 40.0-80.0 [facility] Comment on above: Performed By: #### 5 7021-8 #### NISA Reis ([id number]) [facility] ([facility]) [address] [place] [address] Nucleated RBC/100 WBC (Bld) [Ratio] 0.0 /100 WBCs Normal 0.0-0.0 [facility] Comment on above: Performed By: #### 5 7021-8 #### NISA Reis ([id number]) [facility] ([facility]) [address] [place] [address] Platelets (Bld) [#/Vol] 231 x10*3/uL Normal 150-450 [facility] Comment on above: Performed By: #### 5 7021-8 #### NISA Reis ([id number]) [facility] ([facility]) [address] [place] [address] RBC (Bld) [#/Vol] 4.67 x10*6/uL Normal 4.50-5.90 [facility] Comment on above: Performed By: #### 5 7021-8 #### NISA Reis ([id number]) [facility] ([facility]) [address] [place] [address] WBC (Bld) [#/Vol] 11.1 x10*3/uL Normal 4.4-11.3 [facility] Comment on above: Performed By: #### 5 7021-8 #### NISA Reis ([id number]) [facility] ([facility]) [address] [place] [address] Basophils (Bld) [#/Vol] 0.04 10*3/uL [facility] Basophils/100 WBC (Bld) 0.4 % 0.0 - 2.0 % [facility] Eosinophils (Bld) [#/Vol] 0.09 10*3/uL [facility] Eosinophils/100 WBC (Bld) 0.8 % 0.0 - 6.0 % [facility] Erythrocyte distribution width (RBC) [Ratio] 13.5 % 11.5 - 14.5 % [facility] Hematocrit (Bld) [Volume fraction] 39.9 % Low 41.0 - 52.0 % [facility] Hemoglobin (Bld) [Mass/Vol] 12.9 g/dL Low 13.5 - 17.5 g/dL [facility] Immature granulocytes (Bld) [#/Vol] 0.03 10*3/uL [facility] Immature granulocytes/100 WBC (Bld) 0.3 % 0.0 - 0.9 % [facility] Comment on above: Immature Granulocyte Count (IG) includes promyelocytes, myelocytes and metamyelocytes but does not include bands. Percent differential counts (%) should be interpreted in the context of the absolute cell counts (cells/UL). Interpretation and review of laboratory results Abnormal [facility] Lymphocytes (Bld) [#/Vol] 3.28 10*3/uL [facility] Lymphocytes/100 WBC (Bld) 29.7 % 13.0 - 44.0 % [facility] MCH (RBC) [Entitic mass] 27.6 pg 26.0 - 34.0 pg [facility] MCHC (RBC) [Mass/Vol] 32.3 g/dL 32.0 - 36.0 g/dL [facility] MCV (RBC) [Entitic vol] 85 fL 80 - 100 fL [facility] Monocytes (Bld) [#/Vol] 1.12 10*3/uL High [facility] Monocytes/100 WBC (Bld) 10.1 % 2.0 - 10.0 % [facility] Neutrophils (Bld) [#/Vol] 6.50 10*3/uL [facility] Comment on above: Percent differential counts (%) should be interpreted in the context of the absolute cell counts (cells/uL). Neutrophils/100 WBC (Bld) 58.7 % 40.0 - 80.0 % [facility] Nucleated RBC/100 WBC (Bld) [Ratio] 0.0 % [facility] Platelets (Bld) [#/Vol] 231 10*3/uL [facility] RBC (Bld) [#/Vol] 4.67 10*6/uL [facility] WBC (Bld) [#/Vol] 11.1 10*3/uL [facility] CT Neck W contrast Dash 03-1 1. Marked abnormal enlargement and enhancement of the left submandibular gland including a hypodense rim enhancing area possibly a submandibular gland abscess or extremely dilated submandibular gland duct containing a very large calcification. There is effacement of the left pharyngeal wall and left vallecula. 2. There is adenopathy adjacent to the left submandibular gland and midline submandibular adenopathy. MACRO: None Signed by: Tita Brennan 11/30/2023 10:37 PM Dictation workstation: [id number] [facility] Interpreted By: Tita Alvarado ch, STUDY: CT SOFT TISSUE NECK W IV CONTRAST; 11/30/2023 9:48 pm INDICATION: Signs/Symptoms:Left submandibular swelling. Left neck pain and left ear pain. COMPARISON: None. ACCESSION NUMBER(S): [id number] ORDERING CLINICIAN: BOBBI SMITH TECHNIQUE: Axial CT images of the neck were obtained. 75 mL of Omnipaque 350 intravenously. Intravenous contrast agent. The images were reformatted in angled axial, coronal and sagittal planes. FINDINGS: Lung apices appear clear. Thyroid gland appears normal. The left submandibular gland is enlarged with heterogeneous enhancement. There are enhancing enlarged lymph nodes lateral to the left submandibular gland. There is poorly defined hypodensity in the medial aspect of the submandibular gland measuring 5.7 cm in length by 1.9 cm transverse with slight rim enhancement. This could be due to a dilated obstructed left submandibular duct. There is a 2.2 by 1.2 cm calcification in the expected location of the left submandibular duct. Due to the abnormally enlarged left submandibular gland there is significant mass effect along the left pharyngeal wall effacing the left vallecula with swelling in the floor of the mouth and extending inferiorly into the left supraglottic soft tissues to the left of midline. Submandibular adenopathy is noted. The right submandibular gland appears normal. The parotid glands appear normal. Epiglottis is normal. No retropharyngeal soft tissue swelling. Vocal cords unremarkable. Mild paranasal sinus mucosal thickening visualized orbits unremarkable. [facility] Tita Brennan MD - 11/30/2023 Interpreted By: Tita Brennan, STUDY: CT SOFT TISSUE NECK W IV CONTRAST; 11/30/2023 9:48 pm INDICATION: Signs/Symptoms:Left submandibular swelling. Left neck pain and left ear pain. COMPARISON: None. ACCESSION NUMBER(S): [id number] ORDERING CLINICIAN: BOBBI SMITH TECHNIQUE: Axial CT images of the neck were obtained. 75 mL of Omnipaque 350 intravenously. Intravenous contrast agent. The images were reformatted in angled axial, coronal and sagittal planes. FINDINGS: Lung apices appear clear. Thyroid gland appears normal. The left submandibular gland is enlarged with heterogeneous enhancement. There are enhancing enlarged lymph nodes lateral to the left submandibular gland. There is poorly defined hypodensity in the medial aspect of the submandibular gland measuring 5.7 cm in length by 1.9 cm transverse with slight rim enhancement. This could be due to a dilated obstructed left submandibular duct. There is a 2.2 by 1.2 cm calcification in the expected location of the left submandibular duct. Due to the abnormally enlarged left submandibular gland there is significant mass effect along the left pharyngeal wall effacing the left vallecula with swelling in the floor of the mouth and extending inferiorly into the left supraglottic soft tissues to the left of midline. Submandibular adenopathy is noted. The right submandibular gland appears normal. The parotid glands appear normal. Epiglottis is normal. No retropharyngeal soft tissue swelling. Vocal cords unremarkable. Mild paranasal sinus mucosal thickening visualized orbits unremarkable. IMPRESSION: 1. Marked abnormal enlargement and enhancement of the left submandibular gland including a hypodense rim enhancing area possibly a submandibular gland abscess or extremely dilated submandibular gland duct containing a very large calcification. There is effacement of the left pharyngeal wall and left vallecula. 2. There is adenopathy adjacent to the left submandibular gland and midline submandibular adenopathy. MACRO: None Signed by: Tita Brennan 11/30/2023 10:37 PM Dictation workstation: [id number] [facility] Work Phone: Radiology Study observation (narrative) [facility] Work Phone: CT Neck W contrast IVOrdered By: Tita Brennan on 11-30-2023 [facility] Work Phone: CT SOFT TISSUE NECK W IV CON TRASTon 11-30-2023 CT SOFT TISSUE NECK W IV CONTRAST Interpreted By: Tita Brennan, STUDY: CT SOFT TISSUE NECK W IV CONTRAST; 11/30/2023 9:48 pm INDICATION: Signs/Symptoms:Left submandibular swelling. Left neck pain and left ear pain. COMPARISON: None. ACCESSION NUMBER(S): [id number] ORDERING CLINICIAN: BOBBI SMITH TECHNIQUE: Axial CT images of the neck were obtained. 75 mL of Omnipaque 350 intravenously. Intravenous contrast agent. The images were reformatted in angled axial, coronal and sagittal planes. FINDINGS: Lung apices appear clear. Thyroid gland appears normal. The left submandibular gland is enlarged with heterogeneous enhancement. There are enhancing enlarged lymph nodes lateral to the left submandibular gland. There is poorly defined hypodensity in the medial aspect of the submandibular gland measuring 5.7 cm in length by 1.9 cm transverse with slight rim enhancement. This could be due to a dilated obstructed left submandibular duct. There is a 2.2 by 1.2 cm calcification in the expected location of the left submandibular duct. Due to the abnormally enlarged left submandibular gland there is significant mass effect along the left pharyngeal wall effacing the left vallecula with swelling in the floor of the mouth and extending inferiorly into the left supraglottic soft tissues to the left of midline. Submandibular adenopathy is noted. The right submandibular gland appears normal. The parotid glands appear normal. Epiglottis is normal. No retropharyngeal soft tissue swelling. Vocal cords unremarkable. Mild paranasal sinus mucosal thickening visualized orbits unremarkable. IMPRESSION: 1. Marked abnormal enlargement and enhancement of the left submandibular gland including a hypodense rim enhancing area possibly a submandibular gland abscess or extremely dilated submandibular gland duct containing a very large calcification. There is effacement of the left pharyngeal wall and left vallecula. 2. There is adenopathy adjacent to the left submandibular gland and midline submandibular adenopathy. MACRO: None Signed by: Tita Brennan 11/30/2023 10:37 PM Dictation workstation: [id number] [facility] CBC W Auto Differential pane l (Bld)on 11-25-2023 Basophils (Bld) [#/Vol] 0.03 10*3/uL Normal <0.11 [facility] Comment on above: Order Comment: Speci men Type: BLOOD SPECIMEN Ordering Facility: [facility] Address: [address] [place] [address] Performed By: #### 5 7021-8 #### [facility] CLIA [id number] [address] [place] [address] [place] Basophils/100 WBC (Bld) 0.4 % Normal [facility] Comment on above: Order Comment: Speci men Type: BLOOD SPECIMEN Ordering Facility: [facility] Address: [address] [place] [address] Performed By: #### 5 7021-8 #### [facility] CLIA [id number] [address] [place] [address] [place] Differential cell count method Nom (Bld) Auto Normal [facility] Comment on above: Order Comment: Speci men Type: BLOOD SPECIMEN Ordering Facility: [facility] Address: [address] [place] [address] Performed By: #### 5 7021-8 #### [facility] IA [id number] [address] [place] [address] [place] Eosinophils (Bld) [#/Vol] 0.46 10*3/uL High <0.46 [facility] Comment on above: Order Comment: Speci men Type: BLOOD SPECIMEN Ordering Facility: [facility] Address: [address] [place] [address] Performed By: #### 5 7021-8 #### [facility] IA [id number] [address] [place] [address] [place] Eosinophils/100 WBC (Bld) 5.5 % Normal [facility] Comment on above: Order Comment: Speci men Type: BLOOD SPECIMEN Ordering Facility: [facility] Address: [address] [place] [address] Performed By: #### 5 7021-8 #### [facility] IA [id number] [address] [place] [address] [place] Erythrocyte distribution width (RBC) [Ratio] 13.7 % Normal 11.5-15.0 [facility] Comment on above: Order Comment: Speci men Type: BLOOD SPECIMEN Ordering Facility: [facility] Address: [address] [place] [address] Performed By: #### 5 7021-8 #### [facility] IA [id number] [address] [place] [address] [place] Hematocrit (Bld) [Volume fraction] 44.7 % Normal 39.0-51.0 [facility] Comment on above: Order Comment: Speci men Type: BLOOD SPECIMEN Ordering Facility: [facility] Address: [address] [place] [address] Performed By: #### 5 7021-8 #### [facility] IA [id number] [address] [place] [address] [facility] [place] Hemoglobin (Bld) [Mass/Vol] 14.8 g/dL Normal 13.0-17.0 [facility] Comment on above: Order Comment: Speci men Type: BLOOD SPECIMEN Ordering Facility: [facility] Address: [address] [place] [address] Performed By: #### 5 7021-8 #### [facility] CLIA [id number] [address] [place] [address] [place] Immature granulocytes (Bld) [#/Vol] 10*3/uL Normal <0.10 [facility] Comment on above: Order Comment: Speci men Type: BLOOD SPECIMEN Ordering Facility: [facility] Address: [address] [place] [address] Performed By: #### 5 7021-8 #### [facility] CLIA [id number] [address] [place] [address] [place] Immature granulocytes/100 WBC (Bld) 0.2 % Normal [facility] Comment on above: Order Comment: Speci men Type: BLOOD SPECIMEN Ordering Facility: [facility] Address: [address] [place] [address] Performed By: #### 5 7021-8 #### [facility] IA [id number] [address] [place] [address] [place] Lymphocytes (Bld) [#/Vol] 1.95 10*3/uL Normal 1.00-4.00 [facility] Comment on above: Order Comment: Speci men Type: BLOOD SPECIMEN Ordering Facility: [facility] Address: [address] [place] [address] Performed By: #### 5 7021-8 #### [facility] IA [id number] [address] [place] [address] [place] Lymphocytes/100 WBC (Bld) 23.4 % Normal [facility] Comment on above: Order Comment: Speci men Type: BLOOD SPECIMEN Ordering Facility: [facility] Address: [address] [place] [address] Performed By: #### 5 7021-8 #### [facility] IA [id number] [address] [place] [address] [place] MCH (RBC) [Entitic mass] 28.2 pg Normal 26.0-34.0 [facility] Comment on above: Order Comment: Speci men Type: BLOOD SPECIMEN Ordering Facility: [facility] Address: [address] [place] [address] Performed By: #### 5 7021-8 #### [facility] IA [id number] [address] [place] [address] [place] MCHC (RBC) [Mass/Vol] 33.1 g/dL Normal 30.5-36.0 [facility] Comment on above: Order Comment: Speci men Type: BLOOD SPECIMEN Ordering Facility: [facility] Address: [address] [place] [address] Performed By: #### 5 7021-8 #### [facility] IA [id number] [address] [place] [address] [place] MCV (RBC) [Entitic vol] 85.3 fL Normal 80.0-100.0 [facility] Comment on above: Order Comment: Speci men Type: BLOOD SPECIMEN Ordering Facility: [facility] Address: [address] [place] [address] Performed By: #### 5 7021-8 #### [facility] IA [id number] [address] [place] [address] [place] Monocytes (Bld) [#/Vol] 0.77 10*3/uL Normal <0.87 [facility] Comment on above: Order Comment: Speci men Type: BLOOD SPECIMEN Ordering Facility: [facility] Address: [address] [place] [place] [address] Performed By: #### 5 7021-8 #### [facility] IA [id number] [address] [facility] [place] [address] [facility] Monocytes/100 WBC (Bld) 9.2 % Normal [facility] Comment on above: Order Comment: Speci men Type: BLOOD SPECIMEN Ordering Facility: [facility] Address: [address] [place] [address] Performed By: #### 5 7021-8 #### [facility] IA [id number] [address] [place] [address] [place] Neutrophils (Bld) [#/Vol] 5.11 10*3/uL Normal 1.45-7.50 [facility] Comment on above: Order Comment: Speci men Type: BLOOD SPECIMEN Ordering Facility: [facility] Address: [address] [place] [address] Performed By: #### 5 7021-8 #### [facility] CLIA [id number] [address] [place] [address] [place] Neutrophils/100 WBC (Bld) 61.3 % Normal [facility] Comment on above: Order Comment: Speci men Type: BLOOD SPECIMEN Ordering Facility: [facility] Address: [address] [place] [address] Performed By: #### 5 7021-8 #### [facility] IA [id number] [address] [place] [address] [place] Nucleated RBC (Bld) [#/Vol] 10*3/uL Normal <0.01 [facility] Comment on above: Order Comment: Speci men Type: BLOOD SPECIMEN Ordering Facility: [facility] Address: [address] [place] [address] Performed By: #### 5 7021-8 #### [facility] IA [id number] [address] [place] [address] [place] Nucleated RBC/100 WBC (Bld) [Ratio] 0.0 /100 WBC Normal [facility] Comment on above: Order Comment: Speci men Type: BLOOD SPECIMEN Ordering Facility: [facility] Address: [address] [place] [address] Performed By: #### 5 7021-8 #### [facility] CLIA [id number] [address] [place] [address] [place] Platelet mean volume (Bld) [Entitic vol] 10.5 fL Normal 9.0-12.7 [facility] Comment on above: Order Comment: Speci men Type: BLOOD SPECIMEN Ordering Facility: [facility] Address: [address] [place] [address] Performed By: #### 5 7021-8 #### [facility] CLIA [id number] [address] [facility] [place] [address] [facility] [place] Platelets (Bld) [#/Vol] 220 10*3/uL Normal 150-400 [facility] Comment on above: Order Comment: Speci men Type: BLOOD SPECIMEN Ordering Facility: [facility] Address: [address] [place] [address] Performed By: #### 5 7021-8 #### [facility] CLIA [id number] [address] [place] [address] [facility] [place] RBC (Bld) [#/Vol] 5.24 10*6/uL Normal 4.20-6.00 [facility] Comment on above: Order Comment: Speci men Type: BLOOD SPECIMEN Ordering Facility: [facility] Address: [address] [place] [address] Performed By: #### 5 7021-8 #### [facility] IA [id number] [address] [place] [address] [facility] WBC (Bld) [#/Vol] 8.34 10*3/uL Normal 3.70-11.00 [facility] Comment on above: Order Comment: Speci men Type: BLOOD SPECIMEN Ordering Facility: [facility] Address: [address] [place] [address] Performed By: #### 5 7021-8 #### [facility] CLIA [id number] [address] [place] [address] [facility] Comprehensive metabolic 2000 panelon 11-25-2023 Albumin [Mass/Vol] 4.5 g/dL Normal 3.9-4.9 [facility] Comment on above: Order Comment: Speci men Type: BLOOD SPECIMEN Ordering Facility: [facility] Address: [address] [place] [address] Performed By: #### 2 4323-8 #### [facility] CLIA [id number] [address] [place] [address] [facility] ALP [Catalytic activity/Vol] 55 U/L Normal 38-113 [facility] Comment on above: Order Comment: Speci men Type: BLOOD SPECIMEN Ordering Facility: [facility] Address: [address] [place] [address] Performed By: #### 2 4323-8 #### [facility] CLIA [id number] [address] [facility] [place] [address] [place] ALT [Catalytic activity/Vol] 21 U/L Normal 10-54 [facility] Comment on above: Order Comment: Speci men Type: BLOOD SPECIMEN Ordering Facility: [facility] Address: [address] [facility] [place] [address] Performed By: #### 2 4323-8 #### [facility] CLIA [id number] [address] [place] [address] [place] Anion gap [Moles/Vol] 8 mmol/L Low 9-18 [facility] Comment on above: Order Comment: Speci men Type: BLOOD SPECIMEN Ordering Facility: [facility] Address: [address] [facility] [place] [address] Performed By: #### 2 4323-8 #### [facility] CLIA [id number] [address] [place] [address] [place] AST [Catalytic activity/Vol] 21 U/L Normal 14-40 [facility] Comment on above: Order Comment: Speci men Type: BLOOD SPECIMEN Ordering Facility: [facility] Address: [address] [place] [address] Performed By: #### 2 4323-8 #### [facility] CLIA [id number] [address] [place] [address] [place] Bilirubin [Mass/Vol] 0.8 mg/dL Normal 0.2-1.3 [facility] Comment on above: Order Comment: Speci men Type: BLOOD SPECIMEN Ordering Facility: [facility] Address: [facility] [place] [address] Performed By: #### 2 4323-8 #### [facility] CLIA [id number] [address] [place] [address] [place] [place] Calcium [Mass/Vol] 9.4 mg/dL Normal 8.5-10.2 [facility] Comment on above: Order Comment: Speci men Type: BLOOD SPECIMEN Ordering Facility: [facility] Address: [address] [place] [address] Performed By: #### 2 4323-8 #### [facility] CLIA [id number] [address] [address] [place] Chloride [Moles/Vol] 103 mmol/L Normal 97-105 [facility] Comment on above: Order Comment: Speci men Type: BLOOD SPECIMEN Ordering Facility: [facility] Address: [address] [place] [address] Performed By: #### 2 4323-8 #### [facility] IA [id number] [address] [place] [address] [place] CO2 [Moles/Vol] 26 mmol/L Normal 22-30 [facility] Comment on above: Order Comment: Speci men Type: BLOOD SPECIMEN Ordering Facility: [facility] Address: [address] [place] [place] [address] Performed By: #### 2 4323-8 #### [facility] IA [id number] [address] [place] [address] [place] Creatinine [Mass/Vol] 1.04 mg/dL Normal 0.73-1.22 [facility] Comment on above: Order Comment: Speci men Type: BLOOD SPECIMEN Ordering Facility: [facility] Address: [address] [place] [place] [address] Performed By: #### 2 4323-8 #### [facility] CLIA [id number] [address] [place] [address] [facility] [place] Creatinine and Glomerular filtration rate.predicted panel (S/P/Bld) 92 mL/min/1.73m??? Normal >=60 [facility] Comment on above: Order Comment: Speci men Type: BLOOD SPECIMEN Ordering Facility: [facility] Address: [address] [place] [place] [address] Result Comment: Lee mated Glomerular Filtration Rate (eGFR) is calculated using the 2020 CKD-EPI creatinine equation. This equation utilizes serum creatinine, sex, and age as parameters. The creatinine assay has traceable calibration to isotope dilution-mass spectrometry. Refer to KDIGO guidelines for clinical interpretation. In patients with unstable renal function, e.g. those with acute kidney injury, the eGFR may not accurately reflect actual GFR. Performed By: #### 2 4323-8 #### [facility] CLIA [id number] [address] [place] [address] [place] Glucose [Mass/Vol] 96 mg/dL Normal 74-99 [facility] Comment on above: Order Comment: Carolina pacheco Type: BLOOD SPECIMEN Ordering Facility: [facility] Address: [address] [id number] Result Comment: The [place] Diabetes Association (ADA) provides guidance for cutoff values for fasting glucose and random glucose. The ADA defines fasting as no caloric intake for at least 8 hours. Fasting plasma glucose results between 100 to 125 mg/dL indicate increased risk for diabetes (prediabetes). Fasting plasma glucose results greater than or equal to 126 mg/dL meet the criteria for diagnosis of diabetes. In the absence of unequivocal hyperglycemia, results should be confirmed by repeat testing. In a patient with classic symptoms of hyperglycemia or hyperglycemic crisis, random plasma glucose results greater than or equal to 200 mg/dL meet the criteria for diagnosis of diabetes. Reference: Standards of Medical Care in Diabetes 2016, [place] Diabetes Association. Diabetes Care. 2016.39(Suppl 1). Performed By: #### 2 4323-8 #### [facility] CLIA [id number] [address] [place] [address] [place] Potassium [Moles/Vol] 4.1 mmol/L Normal 3.7-5.1 [facility] Comment on above: Order Comment: Carolina pacheco Type: BLOOD SPECIMEN Ordering Facility: [facility] Address: [address] [place] [address] Performed By: #### 2 4323-8 #### [facility] CLIA [id number] [address] [place] [address] [place] Protein [Mass/Vol] 7.6 g/dL Normal 6.3-8.0 [facility] Comment on above: Order Comment: Carolina pacheco Type: BLOOD SPECIMEN Ordering Facility: [facility] Address: [address] [id number] Performed By: #### 2 4323-8 #### [facility] CLIA [id number] [address] [place] [address] [facility] Sodium [Moles/Vol] 137 mmol/L Normal 136-144 [facility] Comment on above: Order Comment: Speci men Type: BLOOD SPECIMEN Ordering Facility: [facility] Address: [address] [place] [address] Performed By: #### 2 4323-8 #### [facility] CLIA [id number] [address] [place] [address] [place] [facility] Urea nitrogen [Mass/Vol] 14 mg/dL Normal 9-24 [facility] Comment on above: Order Comment: Speci men Type: BLOOD SPECIMEN Ordering Facility: [facility] Address: [address] [id number] Performed By: #### 2 4323-8 #### [facility] CLIA [id number] [address] [place] [address] [facility] ED NOTEon 11-25-2023 ED NOTE HNO ID: [id number] Author: JOAO DONATO RN Service: Nursing Author Type: Registered Nurse Type: ED Notes Filed: 11/25/2023 09:52 Note Text: Reviewed discharge instructions with patient. Pt verbalized understanding and denied any questions. Pt ambulatory to the waiting room. [facility] ED NOTE HNO ID: [id number] Author: ANA PALUA MADRIGAL RN Service: ? Author Type: Registered Nurse Type: ED Notes Filed: 11/25/2023 08:04 Note Text: Pt states that he has had L ear pain for the last week, pt also states that his glands are swollen and it hurts to swallow. [facility] ED PROV NOTEon 11-25-2023 ED PROV NOTE HNO ID: [id number] Author: ABHAY PERDUE MD Service: Emergency Medicine Author Type: Physician Type: ED Provider Notes Filed: 11/25/2023 14:29 Note Text: ED Provider Note Patient Name: Abiodun Mcdonnell : 1980 SERVICE DATE: 11/25/23 History Patient presents with: Ear Pain: Swollen glands x 1 week 43yo male hx of vitiligo here for sore throat, left ear pain and swollen lymph node on the left side. He's concerned about cancer since it runs in the family and is concerned that vitiligo increases risk of cancer. Dad had colon cancer and of sepsis 3 yrs ago. No fever. No congestion/cough/sweats. Dropped off by his boss to get checked out. 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 Does not take any daily meds other than otc asa. PAST MEDICAL HISTORY Diagnosis Date Psychiatric disorder ACTIVE PROBLEM LIST Gastro-Esophageal Reflux Disease Without Esophagitis - 10/10/2019 Vitiligo - 10/10/2019 History of Neck Pain - 04/13/2018 Bipolar Disorder, in Full Remission, Most Recent Episode Depressed ([facility]) - 05/26/2015 Posttraumatic Stress Disorder - 01/25/2012 Chest Pain - 04/27/2010 Paranoid Schizophrenia ([facility]) - 04/22/2010 No past surgical history on file. No family history on file. Social History Tobacco Use Smoking status: Every Day Packs/day: .5 Types: Cigarettes Smokeless tobacco: Not on file Substance and Sexual Activity Alcohol use: Yes Comment: on occasion Drug use: No Sexual activity: Not on file ALLERGIES Allergen Reactions Penicillins Anaphylaxis Tramadol GI Upset Review of Systems HENT: Positive for ear pain and sore throat (points more to cervical lymph node as cause of throat pain). Negative for congestion and dental problem. Respiratory: Negative for cough and shortness of breath. Cardiovascular: Negative. Gastrointestinal: Negative. Physical Exam Vitals [11/25/23 0802] BP Pulse Temp Temp src Resp SpO2 Weight Height 138/74 79 36.9 ?C (98.5 ?F) Oral 18 96 % 89.4 kg (197 lb) 1.778 m (5' 10) Physical Exam Vitals and nursing note reviewed. Constitutional: General: He is not in acute distress. Appearance: Normal appearance. He is not ill-appearing, toxic-appearing or diaphoretic. HENT: Head: Normocephalic and atraumatic. Right Ear: Tympanic membrane, ear canal and external ear normal. There is no impacted cerumen. Left Ear: Tympanic membrane, ear canal and external ear normal. There is no impacted cerumen. Mouth/Throat: Mouth: Mucous membranes are moist. Pharynx: No oropharyngeal exudate or posterior oropharyngeal erythema. Comments: No intraoral abscess Eyes: General: No scleral icterus. Conjunctiva/sclera: Conjunctivae normal. Cardiovascular: Rate and Rhythm: Normal rate and regular rhythm. Pulmonary: Effort: Pulmonary effort is normal. No respiratory distress. Breath sounds: No wheezing. Musculoskeletal: General: No deformity. Cervical back: Neck supple. Lymphadenopathy: Cervical: Cervical adenopathy (on left side, tender to palpation) present. Skin: General: Skin is warm and dry. Comments: Vitiligo Neurological: Mental Status: He is alert and oriented to person, place, and time. Cranial Nerves: No cranial nerve deficit. Motor: No weakness. Gait: Gait normal. Psychiatric: Mood and Affect: Mood normal. Behavior: Behavior normal. Thought Content: Thought content normal. Judgment: Judgment normal. Diagnostic Testing ED Labs Ordered and Reviewed - No data to display Procedures ED Course / Clinical Impression ED Course as of 11/25/23 1426 Abhay Perdue's Documentation Sun Nov 25, 2023 0843 Strep A (POCT): Negative 0902 WBC: 8.[address] [place] Test: Negative 0925 COVID 19 Result: Not detected Clinical Impressions as of 11/25/23 1426 Lymph node enlargement - cervical Ear pain, left COVID-19 test performed per [facility]ana policy for suspected COVID community exposure. MDM / Disposition / Plan This is a 43-year-old male who presents here today because of a sore throat, particularly pointing towards a left-sided cervical lymph node, also ear pain. He is concerned that he might have cancer because he has family members with a history of it. No obvious clinical findings consistent with strep or otitis media. COVID and strep test were negative. I also checked in for mono which was negative. Patient is very well-appearing. No leukocytosis or other CBC findings concerning for cancer at this time. Normal alk phosphatase level. Supportive management advised. Patient concerned about needing antibiotics, will give prescription, concerned that patient is at risk for poor follow-up. May return to the ED for worsening symptoms. No signs of airway obstruction. No drooling or change in phonation. Differential Diagnoses - cervical lymph node is more likely for the following reason(s): may be viral (more content not included)... Normal [facility] FLUABV+SARS-CoV-2+RSV Pnl Re sp TARIK+probeon 11-25-2023 FLUABV+SARS-CoV-2+RS V Pnl Resp TARIK+probe COVID 19 RESULT: Not detected The method used is RT-PCR or an equivalent NAAT method. Reference Range(the expected result in uninfected individuals): Not detected INFLUENZA A PCR: Not detected INFLUENZA B PCR: Not detected RSV PCR: Not detected Normal [facility] Comment on above: Performed By: #### 9 5941-1 #### [facility] CLIA [id number] [address] [place] [address] [facility] Heteroph Ab Ser Ql LAon 11-15 Heterophile Ab LA Ql (S) Negative Normal Negative [facility] Comment on above: Order Comment: Speci men Type: BLOOD SPECIMEN Ordering Facility: [facility] Address: [address] [place] [address] Result Comment: Infe ctious Mononucleosis rapid test is used as an aid in diagnosis of acute infection with Erik-Monslave virus (EBV). The antibody levels may occasionally remain elevated up to several months after a primary EBV infection. Final interpretation should be done in conjunction with EBV-specific serology and clinical correlation. False positive results may occasionally be seen with other infectious agents such as Cytomegalovirus, Toxoplasma, and HIV among others as well as non-infectious conditions such as lymphoma. Clinical correlation is required. Performed By: #### 5 213-4 #### [facility] CLIA [id number] [address] [place], [place] [address] [facility] ALLIED HEALTHon 04-28-2022 ALLIED HEALTH HNO ID: [id number] Author: RT Silvia(R) Service: ? Author Type: Technologist Type: Allied Health Filed: 04/28/2022 10:13 AM Note Text: Radiology Service Progress Note PATIENT NAME: Abiodun Mcdonnell DATE OF SERVICE: April 28, 2022 TIME: 10:13 AM PATIENT IDENTITY VERIFICATION COMPLETED USING TWO (2) IDENTIFIERS: Name and Date of confirmed by patient verbally and Name and Date of confirmed by identification band. FALL SCREENING: Has the patient had 2 falls in the last year or 1 fall with injury or currently using an Ambulatory Assistive Device (Walker, Cane, Wheelchair, Crutches, etc.)? No PATIENT GENDER DATA: Male PATIENT RELEVANT IMPLANT DATA REVIEWED: Not Applicable RADIOLOGY DEPARTMENT: General X-ray: Exam(s) Completed: Chest X-Ray PERIPHERAL IV DATA: Not applicable SIGNED BY: RT Silvia(R) April 28, 2022 10:13 AM Normal [facility] CBC W Auto Differential pane l (Bld)on 04-28-2022 Basophils (Bld) [#/Vol] 0.05 10*3/uL Normal <0.11 [facility] Comment on above: Order Comment: Speci men Type: BLOOD SPECIMEN Ordering Facility: [facility] Address: [address] [place] [address] Performed By: #### 5 7021-8 #### [facility] CLIA [id number] [address] [place] [address] [place] Basophils/100 WBC (Bld) 0.8 % Normal [facility] Comment on above: Order Comment: Speci men Type: BLOOD SPECIMEN Ordering Facility: [facility] Address: [address] [place] [address] Performed By: #### 5 7021-8 #### [facility] CLIA [id number] [address] [place] [address] [place] Differential cell count method Nom (Bld) Auto Normal [facility] Comment on above: Order Comment: Speci men Type: BLOOD SPECIMEN Ordering Facility: [facility] Address: [address] [place] [address] Performed By: #### 5 7021-8 #### [facility] CLIA [id number] [address] [place] [address] [place] Eosinophils (Bld) [#/Vol] 0.41 10*3/uL Normal <0.46 [facility] Comment on above: Order Comment: Speci men Type: BLOOD SPECIMEN Ordering Facility: [facility] Address: [address] [place] [address] Performed By: #### 5 7021-8 #### [facility] CLIA [id number] [address] [place] [address] [place] Eosinophils/100 WBC (Bld) 6.3 % Normal [facility] Comment on above: Order Comment: Speci men Type: BLOOD SPECIMEN Ordering Facility: [facility] Address: [address] [place] [address] Performed By: #### 5 7021-8 #### [facility] CLIA [id number] [place] [address] [place] Erythrocyte distribution width (RBC) [Ratio] 14.7 % Normal 11.5-15.0 [facility] Comment on above: Order Comment: Speci men Type: BLOOD SPECIMEN Ordering Facility: [facility] Address: [address] [place] [address] Performed By: #### 5 7021-8 #### [facility] CLIA [id number] [address] [place] [address] [place] Hematocrit (Bld) [Volume fraction] 49.9 % Normal 39.0-51.0 [facility] Comment on above: Order Comment: Speci men Type: BLOOD SPECIMEN Ordering Facility: [facility] Address: [address] [place] [address] Performed By: #### 5 7021-8 #### [facility] CLIA [id number] [address] [place] [address] [place] Hemoglobin (Bld) [Mass/Vol] 16.1 g/dL Normal 13.0-17.0 [facility] Comment on above: Order Comment: Speci men Type: BLOOD SPECIMEN Ordering Facility: [facility] Address: [address] [place] [address] Performed By: #### 5 7021-8 #### [facility] CLIA [id number] [address] [place] [address] [place] IMMATURE GRAN % 0.3 % Normal [facility] Comment on above: Order Comment: Speci men Type: BLOOD SPECIMEN Ordering Facility: [facility] Address: [address] [place] [address] Performed By: #### 5 7021-8 #### [facility] CLIA [id number] [address] [place] [address] [place] IMMATURE GRAN ABS <0.03 Normal <0.10 [facility] Comment on above: Order Comment: Speci men Type: BLOOD SPECIMEN Ordering Facility: [facility] Address: [address] [place] [address] Performed By: #### 5 7021-8 #### [facility] CLIA [id number] [address] [place] Lymphocytes (Bld) [#/Vol] 1.99 10*3/uL Normal 1.00-4.00 [facility] Comment on above: Order Comment: Speci men Type: BLOOD SPECIMEN Ordering Facility: [facility] Address: [address] [place] [address] Performed By: #### 5 7021-8 #### [facility] CLIA [id number] Lymphocytes/100 WBC (Bld) 30.8 % Normal [facility] Comment on above: Order Comment: Speci men Type: BLOOD SPECIMEN Ordering Facility: [facility] Address: [address] [place] [address] Performed By: #### 5 7021-8 #### [facility] CLIA [id number] [place] MCH (RBC) [Entitic mass] 28.1 pg Normal 26.0-34.0 [facility] Comment on above: Order Comment: Speci men Type: BLOOD SPECIMEN Ordering Facility: [facility] Address: [address] [place] [address] Performed By: #### 5 7021-8 #### [facility] CLIA [id number] [place] MCHC (RBC) [Mass/Vol] 32.3 g/dL Normal 30.5-36.0 [facility] Comment on above: Order Comment: Speci men Type: BLOOD SPECIMEN Ordering Facility: [facility] Address: [address] [address] Performed By: #### 5 7021-8 #### [facility] CLIA [id number] [place] [address] [place] MCV (RBC) [Entitic vol] 87.2 fL Normal 80.0-100.0 [facility] Comment on above: Order Comment: Speci men Type: BLOOD SPECIMEN Ordering Facility: [facility] Address: [address] [place] [address] Performed By: #### 5 7021-8 #### [facility] CLIA [id number] [address] [place] [address] [place] Monocytes (Bld) [#/Vol] 0.63 10*3/uL Normal <0.87 [facility] Comment on above: Order Comment: Speci men Type: BLOOD SPECIMEN Ordering Facility: [facility] Address: [address] [place] [address] Performed By: #### 5 7021-8 #### [facility] CLIA [id number] [address] [place] [address] [place] Monocytes/100 WBC (Bld) 9.7 % Normal [facility] Comment on above: Order Comment: Speci men Type: BLOOD SPECIMEN Ordering Facility: [facility] Address: [address] [place] [address] Performed By: #### 5 7021-8 #### [facility] CLIA [id number] [place] [address] [place] Neutrophils (Bld) [#/Vol] 3.37 10*3/uL Normal 1.45-7.50 [facility] Comment on above: Order Comment: Speci men Type: BLOOD SPECIMEN Ordering Facility: [facility] Address: [address] [place] [address] Performed By: #### 5 7021-8 #### [facility] CLIA [id number] [address] [place] [address] [place] Neutrophils/100 WBC (Bld) 52.1 % Normal [facility] Comment on above: Order Comment: Speci men Type: BLOOD SPECIMEN Ordering Facility: [facility] Address: [address] [place] [address] Performed By: #### 5 7021-8 #### [facility] CLIA [id number] [address] [place] [address] [place] Nucleated RBC (Bld) [#/Vol] 10*3/uL Normal <0.01 [facility] Comment on above: Order Comment: Speci men Type: BLOOD SPECIMEN Ordering Facility: [facility] Address: [address] [place] [address] Performed By: #### 5 7021-8 #### [facility] CLIA [id number] [address] [place] [address] [place] Nucleated RBC/100 WBC (Bld) [Ratio] 0.0 /100 WBC Normal [facility] Comment on above: Order Comment: Speci men Type: BLOOD SPECIMEN Ordering Facility: [facility] Address: [address] [place] [address] Performed By: #### 5 7021-8 #### [facility] CLIA [id number] [place] [address] [place] Platelet mean volume (Bld) [Entitic vol] 10.3 fL Normal 9.0-12.7 [facility] Comment on above: Order Comment: Speci men Type: BLOOD SPECIMEN Ordering Facility: [facility] Address: [address] [place] [address] Performed By: #### 5 7021-8 #### [facility] CLIA [id number] [place] [address] [place] Platelets (Bld) [#/Vol] 209 10*3/uL Normal 150-400 [facility] Comment on above: Order Comment: Speci men Type: BLOOD SPECIMEN Ordering Facility: [facility] Address: [address] [place] [address] Performed By: #### 5 7021-8 #### [facility] CLIA [id number] OF [facility] RBC (Bld) [#/Vol] 5.72 10*6/uL Normal 4.20-6.00 [facility] Comment on above: Order Comment: Speci men Type: BLOOD SPECIMEN Ordering Facility: [facility] Address: [address] [place] [address] Performed By: #### 5 7021-8 #### [facility] CLIA [id number] OF [facility] WBC (Bld) [#/Vol] 6.47 10*3/uL Normal 3.70-11.00 [facility] Comment on above: Order Comment: Speci men Type: BLOOD SPECIMEN Ordering Facility: [facility] Address: [address] [place] [address] Performed By: #### 5 7021-8 #### [facility] CLIA [id number] [address] OF [facility] Comprehensive metabolic 2000 panelon 04-28-2022 Albumin [Mass/Vol] 4.7 g/dL Normal 3.9-4.9 [facility] Comment on above: Order Comment: Speci men Type: BLOOD SPECIMEN Ordering Facility: [facility] Address: [address] [place] [address] Performed By: #### H STNT, 40374-4, 34248-6 #### [facility] CLIA [id number] [place] ALP [Catalytic activity/Vol] 73 U/L Normal 38-113 [facility] Comment on above: Order Comment: Speci men Type: BLOOD SPECIMEN Ordering Facility: [facility] Address: [address] [place] [address] Performed By: #### H STNT, 65236-0, 12937-1 #### [facility] CLIA [id number] [address] [place] [address] [place] ALT [Catalytic activity/Vol] 27 U/L Normal 10-54 [facility] Comment on above: Order Comment: Speci men Type: BLOOD SPECIMEN Ordering Facility: [facility] Address: [address] [place] [address] Performed By: #### H STNT, 08931-3, 23180-5 #### [facility] CLIA [id number] [address] [place] [address] [place] Anion gap [Moles/Vol] 12 mmol/L Normal 9-18 [facility] Comment on above: Order Comment: Speci men Type: BLOOD SPECIMEN Ordering Facility: [facility] Address: [address] [place] [address] Performed By: #### H STNT, 73008-6, 95361-0 #### [facility] CLIA [id number] [address] [place] [address] [place] [facility] AST [Catalytic activity/Vol] 26 U/L Normal 14-40 [facility] Comment on above: Order Comment: Speci men Type: BLOOD SPECIMEN Ordering Facility: [facility] Address: [address] [place] [address] Performed By: #### H STNT, 26256-6, 02913-9 #### [facility] CLIA [id number] [address] [place] [address] [place] Bilirubin [Mass/Vol] 0.6 mg/dL Normal 0.2-1.3 [facility] Comment on above: Order Comment: Speci men Type: BLOOD SPECIMEN Ordering Facility: [facility] Address: [address] [place] [address] Performed By: #### H STNT, 30879-4, 29141-6 #### [facility] CLIA [id number] [address] [place] [address] [place] Calcium [Mass/Vol] 9.3 mg/dL Normal 8.5-10.2 [facility] Comment on above: Order Comment: Speci men Type: BLOOD SPECIMEN Ordering Facility: [facility] Address: [address] [address] Performed By: #### H STNT, 17779-1, 77359-9 #### [facility] CLIA [id number] [address] [place] [address] [place] Chloride [Moles/Vol] 104 mmol/L Normal 97-105 [facility] Comment on above: Order Comment: Speci men Type: BLOOD SPECIMEN Ordering Facility: [facility] Address: [address] [address] Performed By: #### H STNT, 78458-3, 33919-9 #### [facility] CLIA [id number] [place] [address] [place] CO2 [Moles/Vol] 25 mmol/L Normal 22-30 [facility] Comment on above: Order Comment: Speci men Type: BLOOD SPECIMEN Ordering Facility: [facility] Address: [address] [place] [address] Performed By: #### H STNT, 87034-0, 67082-7 #### [facility] CLIA [id number] [address] [place] [address] [place] Creatinine [Mass/Vol] 1.03 mg/dL Normal 0.73-1.22 [facility] Comment on above: Order Comment: Speci men Type: BLOOD SPECIMEN Ordering Facility: [facility] Address: [address] [address] Performed By: #### H STNT, 63608-2, 46070-6 #### [facility] CLIA [id number] [address] [place] [address] [place] ESTIMATED GLOMERULAR FILTRATION RATE 94 mL/min/1.73m??? Normal >=60 [facility] Comment on above: Order Comment: Speci men Type: BLOOD SPECIMEN Ordering Facility: [facility] Address: [address] [place] [address] Result Comment: Lee mated Glomerular Filtration Rate (eGFR) is calculated using the 2020 CKD-EPI creatinine equation. This equation utilizes serum creatinine, sex, and age as parameters. The creatinine assay has traceable calibration to isotope dilution-mass spectrometry. Refer to KDIGO guidelines for clinical interpretation. In patients with unstable renal function, e.g. those with acute kidney injury, the eGFR may not accurately reflect actual GFR. Performed By: #### H STNT, 31375-9, 15876-2 #### [facility] CLIA [id number] [address] [place] [address] [place] Glucose [Mass/Vol] 75 mg/dL Normal 74-99 [facility] Comment on above: Order Comment: Carolina pacheco Type: BLOOD SPECIMEN Ordering Facility: [facility] Address: [address] [address] Result Comment: The [place] Diabetes Association (ADA) provides guidance for cutoff values for fasting glucose and random glucose. The ADA defines fasting as no caloric intake for at least 8 hours. Fasting plasma glucose results between 100 to 125 mg/dL indicate increased risk for diabetes (prediabetes). Fasting plasma glucose results greater than or equal to 126 mg/dL meet the criteria for diagnosis of diabetes. In the absence of unequivocal hyperglycemia, results should be confirmed by repeat testing. In a patient with classic symptoms of hyperglycemia or hyperglycemic crisis, random plasma glucose results greater than or equal to 200 mg/dL meet the criteria for diagnosis of diabetes. Reference: Standards of Medical Care in Diabetes 2016, [place] Diabetes Association. Diabetes Care. 2016.39(Suppl 1). Performed By: #### H STNT, 76998-3, 46100-3 #### [facility] CLIA [id number] [address] [place] [address] [place] Potassium [Moles/Vol] 3.9 mmol/L Normal 3.7-5.1 [facility] Comment on above: Order Comment: Carolina pacheco Type: BLOOD SPECIMEN Ordering Facility: [facility] Address: [address] [id number] Performed By: #### H STNT, 44014-6, 13807-2 #### [facility] CLIA [id number] [address] [place] [address] [place] Protein [Mass/Vol] 7.2 g/dL Normal 6.3-8.0 [facility] Comment on above: Order Comment: Speci men Type: BLOOD SPECIMEN Ordering Facility: [facility] Address: [address] [place] [address] Performed By: #### H STNT, 77958-1, 85942-0 #### [facility] CLIA [id number] [place] Sodium [Moles/Vol] 141 mmol/L Normal 136-144 [facility] Comment on above: Order Comment: Speci men Type: BLOOD SPECIMEN Ordering Facility: [facility] Address: [address] [place] [address] Performed By: #### H STNT, 29432-6, 73276-4 #### [facility] CLIA [id number] [place] [address] Urea nitrogen [Mass/Vol] 15 mg/dL Normal 9-24 [facility] Comment on above: Order Comment: Speci men Type: BLOOD SPECIMEN Ordering Facility: [facility] Address: [address] [place] [address] Performed By: #### H STNT, 05587-3, 73433-8 #### [facility] CLIA [id number] [facility] ED NOTEon 04-28-2022 ED NOTE HNO ID: [id number] Author: Loreto Bal RN Service: ? Author Type: Registered Nurse Type: ED Notes Filed: 04/28/2022 11:19 AM Note Text: Discharge instructions, prescription for Prilosec, and follow up with primary care physician and gastroenterology reviewed with patient, patient verbalized understanding, pt ambulated out of ED with steady gait. Normal [facility] ED NOTE HNO ID: [id number] Author: Tiesha Perez RN Service: Nursing Author Type: Registered Nurse Type: ED Notes Filed: 04/28/2022 8:41 AM Note Text: Patient presents to ED for CP and abd pain and vomiting. States it feels like burning. Normal [facility] ED PROV NOTEon 04-28-2022 ED PROV NOTE HNO ID: [id number] Author: Loreto Jeffrey, DO Service: ? Author Type: Physician Type: ED Provider Notes Filed: 04/28/2022 11:08 AM Note Text: ED Provider Note Patient Name: Abiodun Mcdonnell : 1980 SERVICE DATE: 04/28/22 History Patient presents with: Chest Pain 42-year-old male presented emergency department with complaints of chest pain and epigastric pain. Patient states this pain has been occurring over the past 3 months. States that eating makes his symptoms worse. Patient states that when he drinks some fluids recently he has had a cough and subsequently has had episodes of emesis. He denies any increased pain when breathing. No prior cardiac history however patient states his family has a history of congestive heart failure. PAST MEDICAL HISTORY Diagnosis Date Psychiatric disorder History reviewed. No pertinent surgical history. No family history on file. Social History Tobacco Use Smoking status: Every Day Packs/day: 0.50 Types: Cigarettes Smokeless tobacco: Not on file Substance and Sexual Activity Alcohol use: Yes Comment: on occasion Drug use: No Sexual activity: Not on file ALLERGIES Allergen Reactions Penicillins Anaphylaxis Tramadol GI Upset Review of Systems Constitutional: Negative for chills and fever. HENT: Negative for congestion. Eyes: Negative for visual disturbance. Respiratory: Negative for shortness of breath. Cardiovascular: Positive for chest pain. Gastrointestinal: Positive for abdominal pain. Genitourinary: Negative for difficulty urinating. Musculoskeletal: Negative for back pain. Skin: Negative for rash. Neurological: Negative for dizziness and light-headedness. Physical Exam Vitals [04/28/22 0839] BP Pulse Temp Temp src Resp SpO2 Weight Height 132/83 60 36.2 ?C (97.2 ?F) Temporal 18 98 % 88.5 kg (195 lb) -- Physical Exam Vitals and nursing note reviewed. Constitutional: General: He is not in acute distress. Appearance: He is well-developed. HENT: Head: Normocephalic and atraumatic. Eyes: General: Right eye: No discharge. Left eye: No discharge. Cardiovascular: Rate and Rhythm: Normal rate. Pulmonary: Effort: Pulmonary effort is normal. No respiratory distress. Abdominal: General: Bowel sounds are normal. There is no distension. Palpations: Abdomen is soft. Tenderness: There is no abdominal tenderness. Musculoskeletal: General: No deformity. Neurological: Mental Status: He is alert and oriented to person, place, and time. Diagnostic Testing ED Labs Ordered and Reviewed - No data to display Procedures ED Course / Clinical Impression Clinical Impressions as of 04/28/22 1107 Chest pain, unspecified type Nausea Gastroesophageal reflux disease, unspecified whether esophagitis present MDM / Disposition / Plan Patient presented to the emergency department with complaints chest pain, abdominal pain and a burning sensation within his chest. Patient denies any prior history of acid reflux. Patient denies any history of cardiac issues or asthma. Patient does have a small cough. At this time patient was received a GI cocktail along with Zofran. EKG showed normal sinus rhythm rate of 69 bpm, normal axis, normal QRS, no ST segment elevations. Patient underwent high-sensitivity troponin rule out. High-sensitivity troponins were unremarkable. Patient had unremarkable blood work evaluation. Pain is any better control with a GI cocktail. At this time patient was given a prescription for omeprazole for home use. Encouraged to follow-up with gastroenterology for further management. Discharged home in stable condition. SIGNATURE: DO Loreto Ware DO 04/28/22 1108 Normal [facility] EKGon 04-28-2022 Electrocardiogram Ventricular Rate : 6 9 BPM Atrial Rate : 69 BPM P-R Interval : 132 ms QRS Duration : 90 ms Q-T Interval : 414 ms QTC Calculation(Bazett) : 443 ms Calculated P [place] : 69 degrees Calculated R [place] : 9 degrees Calculated T [place] : 17 degrees NORMAL SINUS RHYTHM WITH SINUS ARRHYTHMIA NORMAL ECG NO PREVIOUS ECGS AVAILABLE Confirmed by DO JEFFREY RYAN ([id number]), ESTRELLA Kapoor ([id number]) on 04/28/2022 12:51:43 PM NAME : ABIODUN MCDONNELL PID : [id number] : 1980 Gender : Male Race : ORD : Procedure Date : Apr 28 2022 09:09:11 Edit Date : Apr 28 2022 12:51:45 Diagnosis: NORMAL SINUS RHYTHM WITH SINUS ARRHYTHMIA NORMAL ECG NO PREVIOUS ECGS AVAILABLE Confirmed by DO JEFFREY RYAN ([id number]), ESTRELLA Kapoor ([id number]) on 04/28/2022 12:51:43 PM Test Reason : Location : 80 : [facility] ED Overread By : DO JEFFREY RYAN Edited By : ESTRELLA MALLORY Referred By : , Acquired by : NATALIE DILLARD Normal [facility] HIGH SENSITIVITY TROPONIN To n 04-28-2022 HIGH SENSITIVITY KARIS 7 ng/L Normal <12 [facility] Comment on above: Order Comment: Carolina pacheco Type: BLOOD SPECIMENOrdering Facility: [facility] Address: [address] [place] [address] Result Comment: When assessing risk for acute coronary syndromes: In patients undergoing blood draw greater than or equal to 2 hours from symptom onset, with history of very low to moderate risk and non-ischemic ECG, an initial hs-Troponin T less than 12 ng/L AND a 1 hour delta hs-Troponin T less than 3 ng/L should be considered very low risk for 30 day MACE. Performed By: #### H STNT ####[facility] [id number] [address] [place] HIGH SENSITIVITY KARIS 8 ng/L Normal <12 [facility] Comment on above: Order Comment: Carolina pacheco Type: BLOOD SPECIMEN Ordering Facility: [facility] Address: [address] [place] [address] Result Comment: When assessing risk for acute coronary syndromes: In patients undergoing blood draw greater than or equal to 2 hours from symptom onset, with history of very low to moderate risk and non-ischemic ECG, an initial hs-Troponin T less than 12 ng/L AND a 1 hour delta hs-Troponin T less than 3 ng/L should be considered very low risk for 30 day MACE. Performed By: #### H STNT, 19665-1, 17293-4 #### [facility] CLIA [id number] [place] NT-proBNP [facility] 04-28 Natriuretic peptide.B prohormone N-Terminal [Mass/Vol] <50 Normal <125 [facility] Comment on above: Order Comment: Carolina pacheco Type: BLOOD SPECIMEN Ordering Facility: [facility] Address: [address] [place] [address] Performed By: #### H STNT, 30900-3, 83036-1 #### [facility] CLIA [id number] [address] [id number] [place] XR CHEST 1V FRONTAL PORTon 0 04-28-2022 XR CHEST 1V FRONTAL PORT * * *Final Report* * * DATE OF EXAM: Apr 28 2022 10:13AM EUX [id number] - XR CHEST 1V FRONTAL PORT / PROCEDURE REASON: Chest pain, nonspecific * * * * Physician Interpretation * * * * RESULT: EXAMINATION: CHEST RADIOGRAPH (PORTABLE SINGLE VIEW AP) Exam Date/Time: 04/28/2022 10:13 AM CLINICAL HISTORY: Chest pain, nonspecific, Cough, new onset MQ: XCPR_5 Comparison: 04/27/2010 RESULT: Lines, tubes, and devices: None. Lungs and pleura: Lungs are clear. There is no infiltrate, pleural effusion or pneumothorax. Cardiomediastinal silhouette: Normal cardiomediastinal silhouette. Other: No acute osseous abnormality. IMPRESSION: NO EVIDENCE OF ACTIVE CHEST DISEASE. NO SIGNIFICANT CHANGE. Transcribed Using Voice Recognition Transcribe Date/Time: Apr 28 2022 10:14A Dictated by: JAMIE ELLER MD This examination was interpreted and the report reviewed and electronically signed by: JAMIE ELLER MD on Apr 28 2022 10:15AM EST [id number] Normal [facility] Provider Note - ED v2on - Provider Note - ED v2 Provider Note - ED v2: Chart Review: ED NOTES ED NOTES: HPI: 39 year old Male with no significant past medical history comes to the emergency department with a chief complaint of rib pain/injury. For the past week the patient has had left sided rib cage pain. He denies any specific inciting incident. He rates his pain as a 10 out of 10 located in the lower chest and wraps around to the back. He notes that motions and leaning forward and leaning to the left makes the pain worse. It is associated with a chronic cough that is nonproductive and he denies fevers. He denies nausea, constipation, diarrhea, dysuria, hematuria, urgency, frequency, palpitations or shortness of breath. He was evaluated a few days ago at another urgent care and prescribed a muscle relaxant and told that it was likely a pulled muscle. He has not taken any other medications other than the Flexeril and notes that it is not changing his pain. He also continues to smoke cigarettes daily. PMH/SurgHX/FamilyHx: Reviewed in EMR with pertinent above Social Hx: Denies smoking, alcohol abuse and illegal drugs. ROS: Gen.: diaphoresis, weight loss, fatigue, anorexia, insomnia, fever. Eyes: vision loss, double vision, drainage, eye pain. ENT: pharyngitis, sinus congestion, otalgia, tinnitus Cardiac: +chest pain, palpitations, near syncope, syncope. Pulmonary: shortness of breath, +cough, wheezing, hemoptysis. Heme/lymph: swollen glands, easy bruising. GI: abdominal pain, nausea, vomiting, diarrhea, constipation, rectal bleeding, hematemesis. : discharge, hematuria, dysuria, frequency, urgency Musculoskeletal: limb pain, joint pain, edema. Neuro: headache, vertigo, paresthesia, focal weakness Skin: rashes, lacerations Psych: SI, HI. Review of systems is otherwise negative unless denoted + above or in HPI PHYSICAL EXAM Appearance: Alert, oriented, cooperative, in no acute distress. Well nourished & well hydrated. Skin: The vitiligo rash, otherwise Intact, dry skin, no lesions, rash, petechiae or purpura. Eyes: PERRLA, EOMs intact, Conjunctiva pink with no redness or exudates. Eyelids without lesions. No scleral icterus. ENT: Hearing grossly intact. Nares patent, MMM. Pharynx clear, uvula midline. Neck: Supple, without meningismus. Trachea at midline. No lymphadenopathy. Pulmonary: CTAB. No accessory muscle use or stridor. Cardiac: RRR, Normal S1, S2 without murmur, rub, gallop. No JVD. Abdomen: NT/ND, Soft, active bowel sounds. No palpable organomegaly. No rebound or guarding. Genitourinary: deferred Musculoskeletal: Full range of motion. No pain or deformity. No cyanosis, clubbing, or edema. Neurological: CN II - XII grossly intact, normal gait, normal sensation, no weakness, no focal findings identified. Psychiatric: Appropriate mood and affect. Medical Decision Makin-year-old male presenting with nonspecific chest pain which is not likely cardiac in origin or other emergent pathologies. The differential is broad and includes costochondritis, bronchitis, pleurisy or acid reflux. Chest x-ray is negative for effusions, cardiomegaly, pneumothorax or fractures. He will be discharged home with a Medrol Dosepak and instructed to follow-up with his primary care provider. A troponin was not done as his heart score at maximum with an elevated troponin is a 3. The patient was seen and triaged by our nursing/medic staff, their vitals were taken and the nurses notes were reviewed. If the patient arrived by an EMS squad or an outside agency, we discussed the case with transporting EMS medic, police, or other historians. My initial assessment was attention to their airway, breathing, and circulatory status. We addressed any immediate or life threatening findings and completed a medical history and a physical exam if the patient or those legally responsible were in agreement with this. Prior to the patient being discharged, I or my resident/PA or the nursing staff discussed the differential, results and discharge plan with the patient and/or family/friend/caregiver if present. I emphasized the importance of follow-up with the physician I referred them to in the timeframe recommended. I explained reasons for the patient to return to the Emergency Department. Additional verbal discharge instructions were also given and discussed with the patient to supplement those generated by the EMR. We also discussed medications that were prescribed (if any) including common side effects and interactions. The patient was advised to abstain from driving, operating heavy machinery or making significant decisions while taking medications such as opiates and muscle relaxers that may impair this. All questions were addressed. They understand return precautions and discharge instructions. The patient and/or family/friend/caregiver expressed understanding. Disclaimer: This note was dictated by speech recognition technology. Minor errors in dry cell tester may be present. Please contact for clarification or corrections. In the case the patient eloped or refused treatment/admission, we offered to the best of our ability to provide care to the patient at the time of this encounter. HISTORY OF PRESENTING ILLNESS ABIODUN is a 39 year old Male and was seen by me at 13-Oct-2019 07:54 for a chief complaint of rib pain/injury . Other complaints include: Pt presenting with c/o left sided rib pain radiating into his back for the past week. Pt states that he was prescribed muscle relaxer, states he feels it is not muscle related, and is requesting XR. . The historian is the patient. Triage Information: Most recent Vital Sign Value Date Temp (F): 97.3 10-13-2019 07:49 Temp (C): 36.3 10-13-2019 07:49 Heart Rate (beats/min): 62 10-13-2019 07:49 Respirations (breaths/min): 16 10-13-2019 07:49 SpO2 (%): 97 10-13-2019 07:49 BP Systolic (mm Hg): 151 10-13-2019 07:49 BP Diastolic (mm Hg): 55 10-13-2019 07:49 PAST MEDICAL HISTORY ATTESTATION: I have reviewed and confirmed nurse's/medic's notes for patient's medications, allergies, medical history, and surgical history PSYCHOSOCIAL SCREENING: NO: concerns for safety at home ALLERGIES/INTOLERANCES: Allergy Allergen: penicillin Type: Drug Reaction: Anaphylaxis HEALTH HISTORY: No documented data. OUTPATIENT MEDICATIONS: Home Medications Review Status for Reconciliation: Not Done Med Status: Patient Currently Takes Medications Drug Name: ibuprofen 400 mg oral tablet Instructions: 1 tab(s) orally 4 times a day Drug Name: Medrol Dosepak 4 mg oral tablet Instructions: Start 24 mg per day, tapered by 4 mg per day over 6 days per package instructions. SIGNIFICANT EVENTS: No documented data. RESULTS/VITAL SIGNS RESULTS: Recent Lab Results: I have reviewed these laboratory results: Urinalysis 13-Oct-2019 08:34:00 ResultValue Color, Urine YELLOW Reference Range: STRAW,YELLOW Appearance, Urine CLEAR Specific [place], Urine 1.027 pH, Urine 5.0 Protein, Urine NEGATIVE Glucose, Urine NEGATIVE Blood, Urine NEGATIVE Ketones, Urine NEGATIVE Bilirubin, Urine NEGATIVE Urobilinogen, Urine 2.0 H Nitrite, Urine NEGATIVE Leukocyte Esterase, Urine NEGATIVE Radiology Results: Impression: Lungs are clear. No evidence of left rib fracture. Xray Ribs Unilateral with PA Cxr 3 View [Oct 13 2019 8:36AM] VITAL SIGNS: T PRBP SpO2O2(LPM) %FiO2 Method 13-Oct-2019 07:49:[id number]/55 97 room air, no respiratory support EKG INTERPRETATION: EKG Date/Time: 13-Oct-2019 08:30 Rate: 60 Rhythm: NSR Interval: NSR STEMI: no [place]port: Normal Prior EKG: no old EKG available CLINICAL DECISION SUPPORT HEART SCORE HEART History: Slightly suspicious HEART ECG: Normal HEART Age: Less than or = to 45 years HEART Risk Factors: 1 or 2 risk factors PERC RULE OF 8 Age Less Than 50 Years Old: yes Heart Rate Less Than 100: yes O2 Sat on Room Air is More Than 94%: yes Clinical Signs of DVT Are Present: no Hemoptysis: no Recent Trauma or Surgery: no Prior History of PE or DVT: no Exogenous Hormone Use: no CLINICAL IMPRESSION Diagnosis/Annotation: ED Dx Name:Mehnaz, acute Code:M94.0 Dispostion: discharged Type: home ATTESTATION CRITICAL CARE TIME Is this a critically ill patient: no Electronic Signatures: Brandy Bergeron) (Signed 14-Oct-2019 07:42) Authored: Provider Note - ED v2 Last Updated: 14-Oct-2019 07:42 by Brandy Bergeron) References: 1. Data Referenced From Triage - ED 13-Oct-2019 07:49 Normal [facility] RIBS, UNILATERAL, W PA CXR 3 VIEWSon 10-13-2019 RIBS, UNILATERAL, W PA CXR 3 VIEWS Patient Name: ABIODUN MCDONNELL STUDY: RIBS, UNILATERAL, W PA CXR 3 VIEWS; 10/13/2019 8:28 am INDICATION: left flank pain. COMPARISON: None. ACCESSION NUMBER(S): [id number] ORDERING CLINICIAN: BRANDY BERGERON TECHNIQUE: Single view of the chest and multiple views of the left ribs FINDINGS: Cardiomediastinal silhouette is negative. Lungs are clear. Left ribs are intact. No evidence of an acute left rib fracture. IMPRESSION: Lungs are clear. No evidence of left rib fracture. Electronically signed by: SHERRY CLEARY MD Normal [facility] Triage - EDon 10-13-2019 Triage - ED Quick Triage: The patient and/or guardian verbally acknowledges placement for services into the following (when Urgent Care Service hours are operating):emergency department Chart Review: CHIEF COMPLAINT ABIODUN MCDONNELL is a Male patient with a chief complaint of rib pain/injury. Other Complaints: Pt presenting with c/o left sided rib pain radiating into his back for the past week. Pt states that he was prescribed muscle relaxer, states he feels it is not muscle related, and is requesting XR. Triage Date/Time: 13-Oct-2019 07:49 Pain Rating (0-10): 10 = Severe Vital Signs: Temperature: 97.3F ( 36.3C) taken forehead Blood Pressure: 151/55 Mean: Heart Rate: 62 Respiratory Rate: 16 Pulse Oximetry: 97% on room air, no respiratory support. Height: 5 feet 9.00 inches. 175.2 CM Weight: 198.0 pounds. Calculated 89.8 kg. (stated) Calculated BMI (kg/m2): 29.255 Calculated BSA (m2) 2.09 Harry Coma Scale: Best Eye Response: (E4) spontaneous Best Motor Response: (M6) obeys commands Best Verbal Response: (V5) oriented Harry Score: 15 Cough lasting greater than 3 weeks: no Travel outside of [facility]: no Allergies: yes Patient has homicidal thoughts: no ISIAH: 4 Risk Screens Suicide Risk Screen In the Past Month: Have you wished you were or wished you could go to sleep and not wake up no In the Past Month: Have you had any actual thoughts of killing yourself no In Your Lifetime: Have you ever done anything, started to do anything, or prepared to do anything to end your life no Ibarra Fall Scale Screening Has the patient fallen before (or is the patient in the ED as a result of a fall) has not had a fall Does the patient have an impaired gait does not have impaired gait Is the patient cognitively impaired not cognitively impaired Interventions: Ibarra Fall Interventions: *patient oriented to surroundings and call system, * patient/family falls education completed and documented, *patients fall status communicated during bedside handoff, *whiteboard updated, *mode of toileting discussed with patient, *bed in low position with brakes locked, *call light in reach, * non-skid footwear PAIN Pain Scale Used: CARINE Pain Rating (0-10): 10 = Severe PRIMARY ASSESSMENT ABIODUN MCDONNELL's primary assessment is Within Defined Limits. The airway is open and patent. Breathing spontaneous and unlabored with clear breath sounds bilaterally. Circulation is normal with good peripheral pulses. Skin is warm and dry and color is normal for race. Past Medical History: Past Medical History Reviewedyes Electronic Signatures: Kimberley Lowe (RN) (Signed 27-Alberto-2020 07:51) Authored: Triage, Past Medical History Last Updated: 13-Oct-2019 07:51 by Kimberley Lowe (RN) Normal [facility] URINALYSISon 10-13-2019 Appearance (U) CLEAR Normal CLEAR [facility] Comment on above: Performed By: #### U A #### [address] [place] [address] [id number] Bilirubin (U) [Mass/Vol] Negative Normal NEGATIVE [facility] Comment on above: Performed By: #### U A #### [address] [place] [address] 41564 BLOOD Negative Normal NEGATIVE [facility] Comment on above: Performed By: #### U A #### [address] [place] [address] 21798 Color (U) YELLOW Normal STRAW,YELLOW [facility] Comment on above: Performed By: #### U A #### [address] [place] [address] 63531 Glucose [Mass/Vol] Negative Normal NEGATIVE [facility] Comment on above: Performed By: #### U A #### [address] [place] [address] 72996 Ketones Ql (U) Negative Normal NEGATIVE [facility] Comment on above: Performed By: #### U A #### [address] [place] [address] 80114 Leukocyte esterase Test strip Ql (U) Negative Normal NEGATIVE [facility] Comment on above: Performed By: #### U A #### [place] [address] [place] [address] 37450 Nitrite Ql (U) Negative Normal NEGATIVE [facility] Comment on above: Performed By: #### U A #### [place] [id number] [place] [address] 86131 pH (Bld) 5.0 Normal 5.0 - 8.0 [facility] Comment on above: Performed By: #### U A #### [address] [place] [address] 21522 Protein (U) [Mass/Vol] Negative Normal NEGATIVE [facility] Comment on above: Performed By: #### U A #### [place] [address] [address] Specific gravity (U) [Rel density] 1.027 Normal 1.005 - 1.035 [facility] Comment on above: Performed By: #### U A #### [place] [address] [address] Urobilinogen Qn (U) 2.0 mg/dL High 0.0 - 1.9 [facility] Comment on above: Result Comment: Due to a manufacturing issue, low positive urobilinogen results may be falsely positive. Correlate with urine bilirubin and additional clinical/laboratory findings to assess the risk of hemolytic anemia or liver disease. If clinically indicated, repeat testing with an alternate method is available by contacting the laboratory within 24 hours. . Some pigments and medications may cause a false positive urobilinogen. Performed By: #### U A #### [place] [address] [address] CNOVon 10-10-2019 CNOV Office Visit (EXPUSQ ) -- ABIODUN MCDONNELL ([id number]) 1980 M Date Time Provider Department 10/10/19 9:45 AM ANEL MAYFIELD (PA) EXPUSQ During your visit today, we recorded the following information about you: Temperature Pulse Respiration Blood pressure 98.6 degrees 60/minute 16/minute 132/67 Weight 88.5 kg Lavinia Kern Student 10/10/2019 10:08 AM Addendum - Take Flexeril every 8 hours as needed for back and neck pain - Use a heating pad on affected areas - Gentle stretching in the morning and at night - apply heat to your back with a heating pad set on low or a warm water bottle for 30 minutes every 3 to 4 hours. A gentle massage and warm showers may also be helpful. - Begin a program of back exercises to prevent future episodes of pain. Walking, swimming, and bicycling are good exercise. Avoid exercises that put stress on the back, such as rowing and jogging. - Alternate between Tylenol 650mg and Ibuprofen 600mg every 4 hours. For Example: 8:00am = Tylenol 650mg 12:00pm = Ibuprofen 600mg 4:00pm = Tylenol 650mg 8:00pm = Ibuprofen 600mg You should never exceed a total of 3,000mg in 24 hours. PLEASE BE AWARE that prolonged use of NSAIDS (ibuprofen, naproxen, aspirin) can be hard on your stomach and can cause ulcers and bleeding. Do not use these medications regularly for longer than 7 days. Consider taking [id number] Pepcid while using NSAIDS. - A referral to spine center has been created for you. Call central scheduling at [phone] or speak with a patient care dealer compliance representative on your way out to schedule an appointment LOW BACK PAIN GENERAL INFORMATION: Low back pain is located in the small of the back. The pain may be related to sprained muscles or ligaments, to muscle spasms, or to herniation of a spinal disc. There are many possible causes of back pain, but the most common causes are gradual wear and tear, physical and emotional stress, and weak or tense muscles from lack of proper exercise. The pain can develop quickly or overnight and may be caused by unusual exertion such as moving furniture or heavy lifting. Low back pain can be severe, and sometimes you may be unable to move without pain. CONTACT YOUR DOCTOR OR RETURN TO THE ED IF: 1. You have shooting pains into your buttocks, groin, or legs. 2. You have difficulty urinating or lose control of bowel or bladder function. 3. You have numbness or weakness in your legs or feet. Anel Mayfield PA-C 10/10/2019 11:30 AM Signed Patient is a 39 year old left handed male with h/o back pain who presents with neck pain x 1 month and low back pain x 2-3 months. States the pain is worst on the left side of the spine and shoots up and down the spine but not into the legs. Tender upon palpation, bending, and twisting of the back. He denies any inciting injury, incontinence, weakness, headaches, sciatic pain, DM. He has been taking aleve and ibuprofen at home which does not seem to help. Has tried acupuncture in the past. He has had unchanged intermittent tingling sensation like vibrations in both hands and feet x years. BP 132/67 (BP Site: Left Arm, BP Position: Sitting, BP Cuff Size: Large Adult) Pulse 60 Temp 37 ?C (98.6 ?F) (Oral) Resp 16 Wt 88.5 kg (195 lb) SpO2 96% BMI 27.98 kg/m? ALLERGIES Allergen Reactions - Penicillins Anaphylaxis - Tramadol GI Upset Current Outpatient Medications Medication Sig Dispense Refill - cyclobenzaprine (FLEXERIL) 10 mg tablet Take 1 tablet every 8 hours as needed for muscle pain/spasms 30 tablet 0 No current facility-administered medications for this visit. ACTIVE PROBLEM LIST Chest Pain Gastro-Esophageal Reflux Disease Without Esophagitis History of Neck Pain Bipolar Disorder, in Full Remission, Most Recent Episode Depressed (Hcc) Paranoid Schizophrenia (Hcc) Posttraumatic Stress Disorder Vitiligo Tobacco Use: 0.5 packs/day Alcohol Use: Yes (on occasion) Drug Use: No No family history on file. Review of Systems Constitutional: Negative for chills and fever. Gastrointestinal: Denies incontinence Genitourinary: Denies incontinence Musculoskeletal: Positive for back pain (low back), myalgias (back/neck) and neck pain. Negative for arthralgias, gait problem and neck stiffness. Skin: Negative for rash. Allergic/Immunologic: Negative for immunocompromised state. Neurological: Positive for numbness (states he has had vibrations in his hands and feets for years; unchanged x years). Negative for dizziness, weakness, light-headedness and headaches. Psychiatric/Behavioral: Positive for sleep disturbance (pain causes difficulty sleeping). Physical Exam Vitals signs and nursing note reviewed. Constitutional: General: He is not in acute distress. Appearance: Normal appearance. He is well-developed and normal weight. He is not toxic-appearing or diaphoretic. HENT: Head: Normocephalic and atraumatic. Nose: Nose normal. Eyes: Extraocular Movements: Extraocular movements intact. Conjunctiva/sclera: Conjunctivae normal. Pupils: Pupils are equal, round, and reactive to light. Neck: Musculoskeletal: Normal range of motion and neck supple. Muscular tenderness (left sided muscle tenderness to palpation) present. No neck rigidity. Cardiovascular: Rate and Rhythm: Normal rate. Pulmonary: Effort: Pulmonary effort is normal. No respiratory distress. Abdominal: General: There is no distension. Musculoskeletal: Normal range of motion. General: Tenderness (lower back, neck, TTP on paraspinal muscle bulk) present. No swelling, deformity or signs of injury. Cervical back: He exhibits tenderness. He exhibits no bony tenderness, no swelling and no edema. Lumbar back: He exhibits tenderness. He exhibits no bony tenderness, no swelling and no edema. Comments: No midline ttp or step off deformities. Skin: General: Skin is warm and dry. Findings: No bruising, erythema or rash. Neurological: General: No focal deficit present. Mental Status: He is alert and oriented to person, place, and time. Cranial Nerves: Cranial nerves are intact. No cranial nerve deficit. Sensory: Sensation is intact. Motor: Motor function is intact. No weakness or pronator drift. Gait: Gait is intact. Gait normal. Comments: Left sided sensory testing intact but altered diffusely to left leg and forehead 5/5 strength x 4 Psychiatric: Attention and Perception: Attention and perception normal. Mood and Affect: Mood normal. Speech: Speech normal. Behavior: Behavior normal. Behavior is cooperative. Thought Content: Thought content normal. Cognition and Memory: Cognition normal. Judgment: Judgment normal. 1. Neck pain without injury 2. Muscle pain -no bony tenderness, neurointact exam with exception of non-dermatomal paresthesias -reviewed max doses of NSAIDS and APAP -heat/ice -gentle stretches - cyclobenzaprine (FLEXERIL) 10 mg tablet; Take 1 tablet every 8 hours as needed for muscle pain/spasms Dispense: 30 tablet; Refill: 0 - [facility]ULT TO [facility]; Future - Return if you are having incontinence, become weak, shooting pain down the back of the legs 3. Paresthesias -unchanged x years -follow up with PCP 4. Family history of Miami's disease - CONSULT TO INTERNAL MEDICINE; Future Attending Note I have personally performed a face to face assessment of the patient and have reviewed the PA/SENIOR INFORMATION SECURITY ANALYST note. My lerma findings include: History: 39 y/o left handed male with h/o bipolar, paranoid schizophrenia, GERD presenting with acute on chronic neck and back pain x months with no mechanism for injury or overuse. OTC NSAIDS have not been helpful. Reports some left sided paresthesias that are intermittent and unchanged x years, no other focal neuro features. Not currently on any psychiatric medications. Exam: well appearing. No midline ttp or step off deformities. +reproducible muscle pain diffusely to bilateral neck and back L>R. Sensation intact but altered on left, otherwise neurointact exam with preserved strength. Logical and linear with good cognition. Assessment and Plan: The above assessment and plan was created in direct collaboration with my student and has been fully reviewed and approved. Other additions or changes: None Signature: Anel Mayfield PA-C Date: 10/10/2019 Time: 11:26 AM The above care plan was discussed in detail with Abiodun Mcdonnell and all questions have been answered. Given return precautions as well as appropriate recommendations for routine follow up. Anel Mayfield PA-C [address] [place] [address] [facility] [phone] Referring Provider: SELF [[id number]] Allergies As of Date: 10/10/2019 Noted Allergy Reaction PENICILLINS 09/04/2008 10 - Anaphylaxis TRAMADOL 09/19/2017 8 - GI Upset Date Reviewed: 10/10/2019 Reviewed by: Didi Mcnair) FERNANDO Jaime - Fully Assessed Reason for Visit: back pain /neck pain [Other] Cmt: x 1 year back pain /neck pain pressistant for 1 year neck pain got worse Primary Visit Diagnosis:Neck pain without injury [M54.2] Other Visit Diagnoses:Muscle pain [M79.10] Paresthesias [R20.2] Family history of Miami's disease [Z82.0] Order(s):cyclobenzaprine (FLEXERIL) 10 mg tabletTake 1 tablet every 8 hours as needed for muscle pain/spasmsDisp: 30 tabletRfl: 0 CONSULT TO INTERNAL MEDICINE [9017] Order #: [id number]: 1 FUTURE CONSULT TO [facility] [229138] Order #: [id number]: 1 FUTURE Prescriptions as of 10/10/2019 Sig: CYCLOBENZAPRINE 10 MG TABLET Take 1 tablet every 8 hours a* Problem List As Of Date 10/10/2019 Noted Resolved Chest Pain [R07.9] 04/27/2010 Gastro-esophageal reflux disease without esopha*10/10/2019 History of neck pain [Z87.39] 04/13/2018 Bipolar disorder, in full remission, most recen*05/26/2015 Paranoid schizophrenia (HCC) [F20.0] 04/22/2010 Posttraumatic stress disorder [F43.10] 01/25/2012 Vitiligo [L80] 10/10/2019 Other instructions from your clinician: - Take Flexeril every 8 hours as needed for back and neck pain - Use a heating pad on affected areas - Gentle stretching in the morning and at night - apply heat to your back with a heating pad set on low or a warm water bottle for 30 minutes every 3 to 4 hours. A gentle massage and warm showers may also be helpful. - Begin a program of back exercises to prevent future episodes of pain. Walking, swimming, and bicycling are good exercise. Avoid exercises that put stress on the back, such as rowing and jogging. - Alternate between Tylenol 650mg and Ibuprofen 600mg every 4 hours. For Example: 8:00am = Tylenol 650mg 12:00pm = Ibuprofen 600mg 4:00pm = Tylenol 650mg 8:00pm = Ibuprofen 600mg You should never exceed a total of 3,000mg in 24 hours. PLEASE BE AWARE that prolonged use of NSAIDS (ibuprofen, naproxen, aspirin) can be hard on your stomach and can cause ulcers and bleeding. Do not use these medications regularly for longer than 7 days. Consider taking [id number] Pepcid while using NSAIDS. - A referral to spine center has been created for you. Call central scheduling at [phone] or speak with a patient care dealer compliance representative on your way out to schedule an appointment LOW BACK PAIN GENERAL INFORMATION: Low back pain is located in the small of the back. The pain may be related to sprained muscles or ligaments, to muscle spasms, or to herniation of a spinal disc. There are many possible causes of back pain, but the most common causes are gradual wear and tear, physical and emotional stress, and weak or tense muscles from lack of proper exercise. The pain can develop quickly or overnight and may be caused by unusual exertion such as moving furniture or heavy lifting. Low back pain can be severe, and sometimes you may be unable to move without pain. CONTACT YOUR DOCTOR OR RETURN TO THE ED IF: 1. You have shooting pains into your buttocks, groin, or legs. 2. You have difficulty urinating or lose control of bowel or bladder function. 3. You have numbness or weakness in your legs or feet. Prescriptions ordered this encounter Disp Refills Start End CYCLOBENZAPRINE 10 MG TABLET 30 t* 0 10/10/2019 10/17/2019 Sig: Take 1 tablet every 8 hours as needed for muscle pain/spasms Medications Discontinued During This Encounter cyclobenzaprine (FLEXERIL) 10 mg tab* 14 t* 0 04/13/2018 10/10/2019 Class: Print RX Route: ORAL Sig: Take 1 tablet by mouth every 8 hours as needed for Muscle Spasm (or pain). Disc: Course of therapy completed orphenadrine ER (NORFLEX) 100 mg tab* 14 t* 0 09/19/2017 10/10/2019 Class: Print RX Route: ORAL Sig: Take 1 tablet by mouth twice daily as needed for Muscle Spasm or Pain (caution drowsiness). Disc: Course of therapy completed diclofenac, EC, (VOLTAREN) 75 mg EC * 20 t* 0 09/19/2017 10/10/2019 Class: Print RX Route: ORAL Sig: Take 1 tablet by mouth twice daily with meals. Disc: Course of therapy completed prochlorperazine (COMPAZINE) 10 mg t* 15 t* 0 01/14/2015 10/10/2019 Class: Print RX Route: ORAL Sig: Take 1 tablet by mouth every 6 hours as needed (headache or nausea). Disc: Course of therapy completed Encounter Status:Closed by DAY ANEL MITCHELL on 10/10/19 Normal [facility] PROGRESSon 10-10-2019 PROGRESS HNO ID: [id number] Author: Anel Benson) Day Service: ? Author Type: Physician Capsule Machine Operator Type: Progress Notes Filed: 10/10/2019 11:30 AM Note Text: Patient is a 39 year old left handed male with h/o back pain who presents with neck pain x 1 month and low back pain x 2-3 months. States the pain is worst on the left side of the spine and shoots up and down the spine but not into the legs. Tender upon palpation, bending, and twisting of the back. He denies any inciting injury, incontinence, weakness, headaches, sciatic pain, DM. He has been taking aleve and ibuprofen at home which does not seem to help. Has tried acupuncture in the past. He has had unchanged intermittent tingling sensation like vibrations in both hands and feet x years. BP 132/67 (BP Site: Left Arm, BP Position: Sitting, BP Cuff Size: Large Adult) Pulse 60 Temp 37 ?C (98.6 ?F) (Oral) Resp 16 Wt 88.5 kg (195 lb) SpO2 96% BMI 27.98 kg/m? ALLERGIES Allergen Reactions - Penicillins Anaphylaxis - Tramadol GI Upset Current Outpatient Medications Medication Sig Dispense Refill - cyclobenzaprine (FLEXERIL) 10 mg tablet Take 1 tablet every 8 hours as needed for muscle pain/spasms 30 tablet 0 No current facility-administered medications for this visit. ACTIVE PROBLEM LIST Chest Pain Gastro-Esophageal Reflux Disease Without Esophagitis History of Neck Pain Bipolar Disorder, in Full Remission, Most Recent Episode Depressed (Hcc) Paranoid Schizophrenia (Hcc) Posttraumatic Stress Disorder Vitiligo Tobacco Use: 0.5 packs/day Alcohol Use: Yes (on occasion) Drug Use: No No family history on file. Review of Systems Constitutional: Negative for chills and fever. Gastrointestinal: Denies incontinence Genitourinary: Denies incontinence Musculoskeletal: Positive for back pain (low back), myalgias (back/neck) and neck pain. Negative for arthralgias, gait problem and neck stiffness. Skin: Negative for rash. Allergic/Immunologic: Negative for immunocompromised state. Neurological: Positive for numbness (states he has had vibrations in his hands and feets for years; unchanged x years). Negative for dizziness, weakness, light-headedness and headaches. Psychiatric/Behavioral: Positive for sleep disturbance (pain causes difficulty sleeping). Physical Exam Vitals signs and nursing note reviewed. Constitutional: General: He is not in acute distress. Appearance: Normal appearance. He is well-developed and normal weight. He is not toxic-appearing or diaphoretic. HENT: Head: Normocephalic and atraumatic. Nose: Nose normal. Eyes: Extraocular Movements: Extraocular movements intact. Conjunctiva/sclera: Conjunctivae normal. Pupils: Pupils are equal, round, and reactive to light. Neck: Musculoskeletal: Normal range of motion and neck supple. Muscular tenderness (left sided muscle tenderness to palpation) present. No neck rigidity. Cardiovascular: Rate and Rhythm: Normal rate. Pulmonary: Effort: Pulmonary effort is normal. No respiratory distress. Abdominal: General: There is no distension. Musculoskeletal: Normal range of motion. General: Tenderness (lower back, neck, TTP on paraspinal muscle bulk) present. No swelling, deformity or signs of injury. Cervical back: He exhibits tenderness. He exhibits no bony tenderness, no swelling and no edema. Lumbar back: He exhibits tenderness. He exhibits no bony tenderness, no swelling and no edema. Comments: No midline ttp or step off deformities. Skin: General: Skin is warm and dry. Findings: No bruising, erythema or rash. Neurological: General: No focal deficit present. Mental Status: He is alert and oriented to person, place, and time. Cranial Nerves: Cranial nerves are intact. No cranial nerve deficit. Sensory: Sensation is intact. Motor: Motor function is intact. No weakness or pronator drift. Gait: Gait is intact. Gait normal. Comments: Left sided sensory testing intact but altered diffusely to left leg and forehead 5/5 strength x 4 Psychiatric: Attention and Perception: Attention and perception normal. Mood and Affect: Mood normal. Speech: Speech normal. Behavior: Behavior normal. Behavior is cooperative. Thought Content: Thought content normal. Cognition and Memory: Cognition normal. Judgment: Judgment normal. 1. Neck pain without injury 2. Muscle pain -no bony tenderness, neurointact exam with exception of non-dermatomal paresthesias -reviewed max doses of NSAIDS and APAP -heat/ice -gentle stretches - cyclobenzaprine (FLEXERIL) 10 mg tablet; Take 1 tablet every 8 hours as needed for muscle pain/spasms Dispense: 30 tablet; Refill: 0 - [facility]; Future - Return if you are having incontinence, become weak, shooting pain down the back of the legs 3. Paresthesias -unchanged x years -follow up with PCP 4. Family history of Miami's disease - CONSULT TO INTERNAL MEDICINE; Future Attending Note I have personally performed a face to face assessment of the patient and have reviewed the PA/SENIOR INFORMATION SECURITY ANALYST note. My lerma findings include: History: 39 y/o left handed male with h/o bipolar, paranoid schizophrenia, GERD presenting with acute on chronic neck and back pain x months with no mechanism for injury or overuse. OTC NSAIDS have not been helpful. Reports some left sided paresthesias that are intermittent and unchanged x years, no other focal neuro features. Not currently on any psychiatric medications. Exam: well appearing. No midline ttp or step off deformities. +reproducible muscle pain diffusely to bilateral neck and back L>R. Sensation intact but altered on left, otherwise neurointact exam with preserved strength. Logical and linear with good cognition. Assessment and Plan: The above assessment and plan was created in direct collaboration with my student and has been fully reviewed and approved. Other additions or changes: None Signature: Anel Mayfield PA-C Date: 10/10/2019 Time: 11:26 AM The above care plan was discussed in detail with Abiodun Mcdonnell and all questions have been answered. Given return precautions as well as appropriate recommendations for routine follow up. Anel Mayfield PA-C [address] [place] [address] [facility] [phone] [facility] Provider Note - ED v2on 04-17 Provider Note - ED v2 Provider Note - ED v2: Chart Review ED NOTES ED NOTES: History of present illness: This is a 39-year-old male patient with a chief complaint of left eye irritation. He complains of tearing and redness. He states that he got a eyelash stuck in his eye and rubbed it with his gloved hand. He developed redness and swelling over the past 12 hours. Treatment and course: The patient was treated for acute left eye corneal abrasion to the lower 6:00 position. He was given antibiotic eyedrops. He will follow-up with an electromechanic in the next 48 hours if not completely resolved. He has no visual disturbance. Extraocular movements intact. HISTORY OF PRESENTING ILLNESS ABIODUN is a 39 year old Male and was seen by me at 02-May-2019 12:34. The historian is the patient. Triage Information: Most recent Vital Sign Value Date Temp (F): 97.8 05-02-2019 12:39 Temp (C): 36.5 05-02-2019 12:39 Heart Rate (beats/min): 72 05-02-2019 12:39 Respirations (breaths/min): 16 05-02-2019 12:39 SpO2 (%): 97 05-02-2019 12:39 BP Systolic (mm Hg): 134 05-02-2019 12:39 BP Diastolic (mm Hg): 72 05-02-2019 12:39 PAST MEDICAL HISTORY ATTESTATION: I have reviewed and confirmed nurse's/medic's notes for patient's medications, allergies, medical history, and surgical history ALLERGIES/INTOLERANCES: Allergy Allergen: penicillin Type: Drug Reaction: Anaphylaxis HEALTH HISTORY: No documented data. OUTPATIENT MEDICATIONS: Home Medications Review Status for Reconciliation: N/A Med Status: N/A No documented data. SIGNIFICANT EVENTS: No documented data. REVIEW OF SYSTEMS EYES: POSITIVE for: itching, lacrimation, pain and redness Negative for: lid swelling, photophobia and vision changes PHYSICAL EXAM CONSTITUTIONAL: Well appearing, well nourished, awake, alert, oriented to person, place, time/situation and in no apparent distress. HENMT: Airway patent, ears with clear tympanic membranes bilaterally. Nasal mucosa clear. Mouth with normal mucosa. Throat has no vesicles, no oropharyngeal exudates and uvula is midline. Face with no lymph node enlargement. EYES: Bilteral Eyes: conjunctiva erythema Eye Exam Method: fluorescein Left Conjunctiva: chemosis Right Conjunctiva: clear Left Sclera: normal Right Sclera: normal Left Cornea: ABRASION Right Cornea: clear Left Pupil: reactive Right Pupil: reactive CARDIOVASCULAR: Normal rate, regular rhythm. Heart sounds S1, S2. No murmurs, rubs or gallops. PMI non-displaced. RESPIRATORY: Breath sounds clear and equal bilaterally. GASTROINTESTINAL: Abdomen soft, non-distended, no rebound, no guarding. Bowel sounds normal in all 4 quadrants. GENITOURINARY: No discharge, no lesions. MUSCULOSKELETAL: Spine appears normal, range of motion is not limited, no muscle or joint tenderness. NEUROLOGICAL: Alert and oriented, no focal deficits, no motor or sensory deficits. SKIN: Skin normal color for race, warm, dry and intact. No evidence of trauma. PSYCHIATRIC: Alert and oriented to person, place, time/situation. normal mood and affect. No apparent risk to self or others. HEME/LYMPH: No adenopathy or splenomegaly. No cervical, supraclavicular or inguinal lymphadenopathy. RESULTS/VITAL SIGNS VITAL SIGNS: T PRBP SpO2O2(LPM) %FiO2 Method 02-May-2019 12:39:[id number]/72 97 room air, no respiratory support CLINICAL IMPRESSION Diagnosis/Annotation: ED Dx Name:Corneal abrasion, left Code:S05.02XA Dispostion: discharged Type: home ATTESTATION Attestation: Supervising physician on site, available for consultation, non-participatory in the evaluation of the care of this patient. CRITICAL CARE TIME Is this a critically ill patient: no Electronic Signatures for Addendum Section: Yulia Helton ([facility]) (Signed Addendum 12-May-2019 14:24) Content in this ED Provider Note was inadvertently removed due to a technical issue but has since been restored by IT. No edit or revision has been made to this document. Electronic Signatures: Yulia Helton ([facility]) (Signature Pending) Authored: Provider Note - ED v2 Matty Bah ([facility]) (Signed 02-May-2019 13:02) Authored: Provider Note - ED v2 Mich Elizabeth) (Signed 02-May-2019 13:30) Authored: Provider Note - ED v2 Co-Signer: Provider Note - ED v2 Last Updated: 12-May-2019 14:24 by Yulia Helton ([facility]) [facility] Triage - EDon 05-02-2019 Triage - ED Quick Triage: The patient and/or guardian verbally acknowledges placement for services into the following (when Urgent Care Service hours are operating):urgent care services Chart Review: CHIEF COMPLAINT ABIODUN MCDONNELL is a Male patient with a chief complaint of eye pain traumatic. Other Complaints: Pt presenting with c/o left eye irritation/redness and tearing since this morning. Triage Date/Time: 02-May-2019 12:39 Pain Rating (0-10): 6 = Moderate Vital Signs: Temperature: 97.8F ( 36.5C) taken forehead Blood Pressure: 134/72 Mean: Heart Rate: 72 Respiratory Rate: 16 Pulse Oximetry: 97% on room air, no respiratory support. Height: 5 feet 9.00 inches. 175.2 CM Weight: 202.0 pounds. Calculated 91.6 kg. (stated) Calculated BMI (kg/m2): 29.841 Calculated BSA (m2) 2.11 Harry Coma Scale: Best Eye Response: (E4) spontaneous Best Motor Response: (M6) obeys commands Best Verbal Response: (V5) oriented [place] Score: 15 Cough lasting greater than 3 weeks: no Travel outside of [place]: no Allergies: yes Patient has homicidal thoughts: no ISIAH: 4 Risk Screens Suicide Risk Screen In the Past Month: Have you wished you were or wished you could go to sleep and not wake up no In the Past Month: Have you had any actual thoughts of killing yourself no In Your Lifetime: Have you ever done anything, started to do anything, or prepared to do anything to end your life no Ibarra Fall Scale Screening Has the patient fallen before (or is the patient in the ED as a result of a fall) has not had a fall Does the patient have an impaired gait does not have impaired gait Is the patient cognitively impaired not cognitively impaired PAIN Pain Scale Used: CARINE Pain Rating (0-10): 6 = Moderate PRIMARY ASSESSMENT ABIODUN MCDONNELL's primary assessment is Within Normal Limits. The airway is open and patent. Breathing spontaneous and unlabored with clear breath sounds bilaterally. Circulation is normal with good peripheral pulses. Skin is warm and dry and color is normal for race. Past Medical History: Past Medical History Reviewedyes Electronic Signatures: Kimberley Lowe ([facility]IC[facility]) (Signed 02-May-2019 12:40) Authored: Triage, Past Medical History Last Updated: 02-May-2019 12:40 by Kimberley Lowe (ELICIA) Normal [facility] ED NOTEon 09-19-2017 ED NOTE HNO ID: [id number] thor: Meghan Blancas CTS (Ct)ervice: (none)Author Type: Clinical TechnicianType: ED NotesFiled: 09/20/2017 9:50 AMNote Text:Emergency Services: ED Call Back QuestionnaireSERVICE DATE: 09/19/2017Are you feeling better? YesAny questions about discharge instructions and follow-up care? NoWere you able to make a follow up appointment? YesDo you have any further questions? NoIs there anything that we could have done differently to improve your EDvisit? NoSIGNATURE: RYAN Bowie PATIENT NAME: Abiodun McdonnellDATE: September 20, 2017 : 9:50 AM [facility] ED NOTE HNO ID: [id number] thor: Ivanna Rose CTS (Ct)ervice: (none)Author Type: Clinical TechnicianType: ED NotesFiled: 09/20/2017 10:42 AMNote Text:Emergency Services: ED Call Back QuestionnaireSERVICE DATE: 09/19/2017Are you feeling better? YesAny questions about discharge instructions and follow-up care? NoWere you able to make a follow up appointment? YesDo you have any further questions? NoIs there anything that we could have done differently to improve your EDvisit? NoSIGNATURE: Ivanna Milton, CT PATIENT NAME: Abiodun McdonnellDATE: September 20, 2017 : 10:40 AM [facility] ED NOTE HNO ID: [id number] thor: Nicky ThomsonRn) Andrade Benitezice: (none)Author Type: Registered NurseType: ED NotesFiled: 09/19/2017 7:50 PMNote Text: Pt received written and verbal discharge instructions. Pt verbalizesunderstanding. All questions answered. Pt education on medication anddosages. Pt verbalized understanding. Instructed pt to follow up with PCP.No acute distress noted. Instructed to come back to emergency departmentif symptoms worsen. Pt verbalized understanding. All belongings with pt. [facility] ED NOTE HNO ID: [id number] thor: Genevieve ThomsonRn) Andrade Monsivaisice: (none)Author Type: Registered NurseType: ED NotesFiled: 09/19/2017 7:44 PMNote Text: Pt sitting in results waiting area. No acute distress or complaints atthis time. Will continue to monitor. [facility] ED NOTE HNO ID: [id number] thor: Andrade Felix Rnice: (none)Author Type: Registered NurseType: ED NotesFiled: 09/19/2017 6:55 PMNote Text:Medication given. Patient educated on medication and verbalizedunderstanding. Patient agreeable with POC. Will continue to monitor. [facility] ED NOTE HNO ID: [id number] thor: Andrade Felix Rnice: (none)Author Type: Registered NurseType: ED NotesFiled: 09/19/2017 5:56 PMNote Text:Pt presented to the ED with complaints of back pain. Pt states he fell offa scaffold a few months back. Pt states the pain went away for a couplemonths but it came back. Pt rates the back pain as a 9/10. Pt deniesissues with urination. Pt states the doctor ordered tramadol but he statesit makes him feel sick. Pt states his fingers have occasional numbness. [facility] ED PROV NOTEon 09-19-2017 ED PROV NOTE HNO ID: [id number] thor: Nanda Barraza) Anayeli: (none)Author Type: Physician AssistantType: ED Provider NotesFiled: 09/19/2017 8:11 PMNote Text:ED Provider NotePatient Name: Abiodun McdonnellMRN: [id number] DATE: 09/19/17HistoryPatient presents with:Back PainNumbnessHPI Comments: The patient is a 37 year old male presenting with back pain.Back Pain: Patient presents for evaluation of low back pain. Symptomshave been present for 6 months and include mid lumbar region and rightlumbar region with no radiating symptoms Pain is described as aching andcramping . Initial inciting event: had a fall [facility], but backpain didn't start until a few months after . Symptoms are worst: when upand moving around. Alleviating factors identifiable by patient are: none.Exacerbating factors identifiable by patient are bending, stooping andlifting. Treatments so far initiated by patient:rest, NSAIDs and tramadol. Previous lower back problems: has been having low back pain x 5 months. Recently moved here from [place]. States he was seen there, had XR,MRI. Has tried TENS unit as well as narcotic and tramadol analgesics,which caused too much sedation as he was working at the time. States heis not currently working.The patient denies saddle dysesthesias and bowel/bladderincontinence/ retention. The patient denies lower extremity weakness ornumbness. The patient admits to recent falls or injury. The patient doesnot have history of cancer, IV drug use, TB, recent or frequent steroiduse, or fevers/chills.History provided by: PatientPAST MEDICAL HISTORYDiagnosis Date- Psychiatric disorderNo past surgical history on file.No family history on file.Social HistorySocial History Main Topics- Smoking status: Current Every Day Smoker Packs/day: 0.50- Smokeless tobacco: Not on file- Alcohol use Yes Comment: on occasion- Drug use: No- Sexual activity: Not on fileALLERGIESAllergen Reactions- Penicillins Anaphylaxis- Tramadol GI UpsetReview of SystemsConstitutional: Negative for fatigue and fever.Respiratory: Negative for shortness of breath.Cardiovascular: Negative for chest pain.Gastrointestinal: Negative for abdominal pain, diarrhea, nausea andvomiting.Genitourinary: Negative for decreased urine volume, difficulty urinating,discharge, dysuria, hematuria and testicular pain.Musculoskeletal: Positive for back pain. Negative for joint swelling,myalgias and neck pain.Skin: Negative for rash.Neurological: Negative for syncope, speech difficulty, weakness,light-headedness and numbness.Hematological: Does not bruise/bleed easily.Psychiatric/Behavio ral: Negative for confusion.Physical ExamBP 125/75 Pulse 87 Temp (Src) 98.3 (Oral) Resp 15 Ht 5' 9 (1.75m) Wt 201 lb (91.2kg) SpO2 98% BMI 29.67 kg/(m2).Physical ExamConstitutional: He is oriented to person, place, and time. He appearswell-developed and well-nourished. Non-toxic appearance. He does not havea sickly appearance. He does not appear ill. No distress.Cardiovascular: Normal rate.Pulmonary/Chest: Effort normal and breath sounds normal.Musculoskeletal: Lumbar back: He exhibits decreased range of motion (limited in alldirections d/t pain - pt resistant to make effort) and tenderness (acrosslumbar area). He exhibits no bony tenderness, no edema, no deformity, nopain and no spasm. Back: Right lower leg: He exhibits no tenderness and no swelling. Left lower leg: He exhibits no tenderness and no swelling. Right foot: There is normal range of motion, no swelling and normalcapillary refill. Left foot: There is normal range of motion, no swelling and normalcapillary refill.Neurological: He is alert and oriented to person, place, and time. He hasnormal strength and normal reflexes. No sensory deficit. He exhibitsnormal muscle tone. He displays a negative Romberg sign. Coordination andgait normal.Reflex Scores: Patellar reflexes are 2+ on the right side and 2+ on the left side. Achilles reflexes are 2+ on the right side and 2+ on the left side.Sensation normal over dorsum of feet. Plantar and dorsi-flexion of feet5/5, 5/5 strength of great toes bilaterally.Skin: Skin is warm and dry.Psychiatric: He has a normal mood and affect.Nursing note and vitals reviewed.Diagnostic TestingED Labs Ordered and Reviewed - No data to displayXR LUMBAR GENERAL 3V AP/LAT/L5-S1 Final Result IMPRESSION: Negative lumbar spine. Hat Maker: PSCDuglas Transcribe Date/Time: Sep 19 2017 6:35P Dictated by : MANOJ GARCIA MD This examination was interpreted and the report reviewed and electronically signed by: MANOJ GARCIA MD on Sep 19 2017 6:36PM ESTProceduresMedical Decision Making / ED CourseED Mncqfn74 y.o male with 5 month hx of LBP. Hx is negative for red flags - hashad multiple imaging since fall. Pain is movement related. XR obtainedas records unavailable. XR negative for acute process. Discussed withthe patient. Medicated with Toradol and norflex in ED, pain is improved,but not fully resolved. He is reluctant to believe his pain could bemuscular in origin. Advised establishing with local PCP for furtherevaluation and development of treatment plan. Rx Norflex, Voltaren andtramadol.Encounter Diagnosis ICD-10-CM1. Chronic bilateral low back pain without sciatica M54.5 traMADol(ULTRAM) 50 mg tablet G89.29Above lab results, imaging studies and/or tracings were reviewed by me anddiscussed with the patient.Vital signs were reviewed and incorporated in treatment plan.Patient's pain was reassessed periodically and treated appropriatelythroughout ED stay.ASSESSMENT: Clinical presentation at this time is most consistent with(M54.5, G89.29) Chronic bilateral low back pain without sciatica(primary encounter diagnosis). Discussed diagnosis and differentialdiagnosis with the patient.PLAN: Reviewed treatment plan and follow up instructions. Patientdischarged with prescription for Norflex, Voltaren and tramadol. OARRSreviewed. Follow up with PCP advised. All of the patient's and family'squestions were answered, reasons to return to the ED were reviewed andpatient voices understanding of above.The patient and/or family-had the results of all tests and diagnosis explained to them-were given both verbal and written discharge instructions-were instructed of the importance of close fhunra-lh-byhg told that close follow-up is essential for good health and goodoutcomesPlanThe Patient was DISCHARGED: Counseled patient regarding radiology resultsAND suspected diagnosis AND need for follow-up. Discharged home with verbaland written instructions. They were instructed to return as needed forpersistent or worsening symptoms or any new concerns.Condition at time of disposition: stableSIGNATURE: Riki Peña (Paula) Oyukmy[birth year]182010 [facility] XR LUMBAR 3V AP/LAT/L5-S1on 09-19-2017 XR LUMBAR 3V AP/LAT/L5-S1 * * *Final Report* * *DATE OF EXAM: Sep 19 2017 6:27PM LUX [id number] - XR LUMBAR 3V AP/LAT/L5-S1 / REASON: Low back pain * * * * Physician Interpretation * * * * EXAM TITLE: XR LUMBAR 3V AP/LAT/L5-S1EXAM DATE/TIME: 09/19/2017 6:27 PMCOMPARISON: None.CLINICAL INDICATION/HISTORY: Low back painTECHNIQUE: AP, lateral and cone down lateral views of the lumbar spine are presented.FINDINGS:There are five hqk-tar-uvelogn lumbar vertebra.No fracture or subluxations are noted.The disc spaces are well preserved.There is no significant osteophyte formation.IMPRESSION: Negative lumbar spine.Hat Maker: SONI Transcribe Date/Time: Sep 19 2017 6:35PDictated by : MANOJ GARCIA MDThis examination was interpreted and the report reviewed and electronically signed by: MANOJ GARCIA MD on Sep 19 2017 6:36PM [id number] [facility] Vital Signs Date Time Vital Sign Value Performing Clinician Facility 12-13-2023 10:51-0400 Body temperature 97.2 [degF] Keyana Amezcua MD Work Phone: [facility] 12-13-2023 10:51-0400 Diastolic blood pressure 84 mm[Hg] Keyana Amezcua MD Work Phone: [facility] 12-13-2023 10:51-0400 Heart rate 95 /min Keyana Amezcua MD Work Phone: [facility] 12-13-2023 10:51-0400 Respiratory rate 18 /min Keyana Amezcua MD Work Phone: [facility] 12-13-2023 10:51-0400 SaO2% (BldA) [Mass fraction] 98 % Keyana Amezcua MD Work Phone: [facility] 12-13-2023 10:51-0400 Systolic blood pressure 131 mm[Hg] Keyana Amezcua MD Work Phone: [facility] 12-06-2023 13:03-0400 Body height 177.8 cm Keyana Amezcua MD Work Phone: [facility] 12-06-2023 13:03-0400 Body mass index (BMI) [Ratio] 26.43 kg/m2 Keyana Amezcua MD Work Phone: [facility] 12-06-2023 13:03-0400 Body temperature 95.9 [degF] Keyana Amezcua MD Work Phone: [facility] 12-06-2023 13:03-0400 Body weight 83.55 kg Keyana Amezcua MD Work Phone: [facility] 12-01-2023 07:00-0400 Body temperature 97.7 [degF] Brandy Bergeron MD Work Phone: [facility] 12-01-2023 07:00-0400 Diastolic blood pressure 64 mm[Hg] Brandy Bergeron MD Work Phone: [facility] 12-01-2023 07:00-0400 Heart rate 73 /min Brandy Bergeron MD Work Phone: [facility] 12-01-2023 07:00-0400 Respiratory rate 16 /min Brandy Bergeron MD Work Phone: [facility] 12-01-2023 07:00-0400 SaO2% (BldA) [Mass fraction] 92 % Brandy Bergeron MD Work Phone: [facility] 12-01-2023 07:00-0400 Systolic blood pressure 112 mm[Hg] Brandy Bergeron MD Work Phone: [facility] 11-30-2023 19:29-0400 Body height 177.8 cm Brandy Bergeron MD Work Phone: [facility] 11-30-2023 19:29-0400 Body mass index (BMI) [Ratio] 26.89 kg/m2 Brandy Bergeron MD Work Phone: [facility] 11-30-2023 19:29-0400 Body weight 85 kg Brandy Bergeron MD Work Phone: [facility] 06-12-2018 16:56-0400 BP Diastolic 82 mm[Hg] [facility]-12-2018 16:56-0400 BP Systolic 126 mm[Hg] [facility] 06-12-2018 16:51-0400 BMI (Body Mass Index) 28.94 kg/m2 Crow Roman [facility] 06-12-2018 16:51-0400 Body Temperature 98.91 [degF] Crow Roman [facility] 06-12-2018 16:51-0400 BP Diastolic 82 mm[Hg] Crow Roman [facility] 06-12-2018 16:51-0400 BP Systolic 129 mm[Hg] Crow Roman [facility] 06-12-2018 16:51-0400 Height 175.26 cm [facility] 06-12-2018 16:51-0400 Pulse (Heart Rate) 88 /min Crow Jessie [facility] 06-12-2018 16:51-0400 Pulse Oximetry 95 % [facility] 06-12-2018 16:51-0400 Respiratory Rate 18 /min [facility] 06-12-2018 16:51-0400 Weight 88.9 kg [facility] Encounters Encounter Date Encounter Type Care Provider Facility Start: 03-02-2024 End: 03-02-2024 Emergency department patient visit SAM BRANDT [facility] Start: 03-01-2024 End: 03-01-2024 Emergency department patient visit WANDY REGAN [facility] Start: 12-13-2023 End: 12-13-2023 ambulatory [facility] Start: 12-13-2023 End: 12-13-2023 Subsequent hospital visit by physician Keyana Amezcua MD Work Phone: [facility] [place] Comment on above: Sialoadenitis of sub mandibular gland (Primary Dx); Salivary stone Start: 12-06-2023 End: 12-07-2023 ambulatory [facility] Start: 12-06-2023 End: 12-07-2023 [facility]: 12-06-[facility]23 End: 12-06-2023 Office outpatient visit 25 minutes Keyana Amezcua MD Work Phone: [facility] Comment on above: Pre-op testing; Salivary stone Start: 12-06-2023 End: 12-06-2023 Patient encounter status Keyana Amezcua MD Work Phone: [facility] Start: 12-05-2023 End: 12-05-2023 ambulatory [facility] Start: 12-05-2023 End: 12-05-2023 Office outpatient new 30 minutes Dominick Cummings MD Work Phone: [facility] [place] Comment on above: Sialoadenitis of sub mandibular gland (Primary Dx); Sialolithiasis of submandibular gland Start: 11-30-2023 End: 12-01-2023 ambulatory [facility] Start: 11-30-2023 End: 12-01-2023 Evaluation and management of inpatient Brandy Bergeron MD Work Phone: [facility] [address] Comment on above: Sialoadenitis of sub mandibular gland (Primary Dx); Submandibular lymphadenopathy; Submandibular abscess; 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 Start: 06-12-2018 End: 06-12-2018 Crow BOLAND Work Phone: [facility] Start: 01-11-2018 Patient encounter Aljeandra Rai DMD [facility] Start: 01-11-2018 End: 01-11-2018 Alejandra Rai DMD Work Phone: [facility] Start: 12-31-2017 End: 12-31-2017 Office/outpatient visit, est, level 3 Nancy Douglas OD Work Phone: [facility] Start: 12-31-2017 Patient encounter Nancy Douglas OD [facility] Start: 12-31-2017 End: 12-31-2017 Nancy Douglas OD Work Phone: [facility] Start: 12-26-2017 Patient encounter Alejandra Rai DMD [facility] Start: 12-26-2017 End: 12-26-2017 Alejandra Rai DMD Work Phone: [facility] Start: 09-27-2017 End: 09-27-2017 Mark Blevins DDS Work Phone: [facility] Start: 09-24-2017 End: 09-24-2017 Mark Blevins DDS Work Phone: [facility] Start: 09-19-2017 End: 09-19-2017 Emergency department patient visit UNKNOWN [facility] Start: 04-22-2010 End: 04-22-2010 Oscar Gee MD Work Phone: [facility] Encounter for dental examination and cleaning with abnormal findings Crow Roman [facility] Encounter for dental examination and cleaning without abnormal findings Crow Roman [facility] Encounter for dental examination and cleaning without abnormal findings Crow Baumanngaby [facility] Patient encounter procedure Crow Roman [facility] Routine general medi silvetsre examination at a health care facility Crow Roman [facility] Procedures Date Procedure Procedure Detail Performing Clinician Start: 12-13-2023 DISCHARGE INSTRUCTIONS KEYANA AMEZCUA Start: 12-13-2023 PULSE OXIMETRY, CONTINUOUS KEYANA AMEZCUA Start: 12-13-2023 SURGICAL PATHOLOGY EXAM KEYANA AMEZCUA Start: 12-13-2023 DISCHARGE PATIENT KEYANA AMEZCUA Start: 12-13-2023 ADULT DISCHARGE DIET [place] CHEVY GOLDIE Start: 12-13-2023 DISCHARGE ACTIVITY BETH AMEZCUA Start: 12-13-2023 DISCHARGE INSTRUCTIONS KEYANA AMEZCUA Start: 12-13-2023 WOUND CARE KEYANA EPPS Start: 12-13-2023 NOTIFY PROVIDER (DO NOT PROMPT FOR PARAMETERS) KEYANA AMEZCUA Start: 12-13-2023 PULSE OXIMETRY, CONTINUOUS Andrade Mcintyre DO Work Phone: Start: 12-06-2023 CASE REQUEST OPERATING ROOM KEYANA AMEZCUA Start: 12-01-2023 DISCHARGE PATIENT BECCA MURILLO Start: 12-01-2023 Basic metabolic 2000 panel - Serum or Plasma BASIA MURILLO Start: 12-01-2023 CBC panel - Blood by Automated count BASIA MURILLO Start: 12-01-2023 Basic metabolic pane l calcium total Rocio Pan MD Work Phone: Start: 12-01-2023 FULL CODE BASIA SCOTT Start: 12-01-2023 MEASURE HEIGHT BASIA YATES Start: 12-01-2023 REASON FOR NO VTE PROPHYLAXIS AT ADMISSION BASIA MURILLO Start: 12-01-2023 WEIGH PATIENT BASIA NICHOLSON Start: 12-01-2023 ADMIT TO INPATIENT SKIP PH D Start: 12-01-2023 ED TO FLOOR BED REQUEST BASIA MURILLO Start: 11-30-2023 CT SOFT TISSUE NECK W IV CONTRAST BASIA MURILLO Start: 11-30-2023 GROUP A STREPTOCOCCUS, PCR BASIA MURILLO Start: 11-30-2023 Ct soft tissue neck w/contrast material Bobbi Pulidoirisvelasquez DO Work Phone: Start: 11-30-2023 Basic metabolic 2000 panel - Serum or Plasma BASIA MURILLO Start: 11-30-2023 CBC W Auto Different ial panel - Blood BASIA MURILLO Start: 11-30-2023 INSERT PERIPHERAL IV CORAL BRIAN MURILLO Start: 11-30-2023 Basic metabolic pane l calcium total Bobbi Pulidoirisvelasquez DO Work Phone: Start: 06-12-2018 End: 06-12-2018 Urnls dip stick/tablet rgnt non-auto w/o micrscp Crow Roman TRANSLATOR INTERPRETER Start: 01-11-2018 End: 01-11-2018 AMALGAM TWO SURFACES PRIMARY OR PERMANENT Alejandra Malonedanilo DMD Start: 01-11-2018 End: 01-11-2018 Established Dental Patient Alejandra frederick DMD Start: 12-26-2017 End: 12-26-2017 BITEWING COMPLETE SERIES MIN 4 FLM Alejandra Rai DMD Start: 12-26-2017 End: 12-26-2017 COMPREHENSIVE ORAL EVALUATION Alejandra Rai DMD Start: 12-26-2017 End: 12-26-2017 Established Dental Patient Alejandra frederick DMD Start: 12-26-2017 End: 12-26-2017 Extraction Erupted Tooth Or Exposed Root Alejandraatilio Maloneestefanyotoniel DMD Start: 12-26-2017 End: 12-26-2017 INTRAORAL PERIAPICAL SINGLE FIRST Alejandra Torlynnewen DMD Start: 12-26-2017 End: 12-26-2017 PANORAMIC FILM Alejandra HELTON D Start: 12-26-2017 End: 12-26-2017 Prophylaxis Adult Alejandra Sanchez Plan of Treatment Date Care Activity Detail Author Start: 2031 Zoster Vaccines (1 of 2) Zoste r Vaccines (1 of 2) [facility] Start: 12-13-2023 End: 12-13-2023 Admission to same day surgery center 12/13/2023 7:15 AM EDT - 12/13/2023 9:30 AM EDT Surgery [facility] Caio VALERA [address] [place] [address] [place] [id number] Department of Otolaryngology, Head and Neck Surgery [place] [id number] Sialolithotomy [85390 (CPT )] [facility] Caio VALERA Comment on above: Sialolithotomy [4233 0 (CPT )] Start: 12-13-2023 End: 12-13-2023 Sialot submndblr sublngl/prtd uncomp intraoral Sialolithotomy Salivary stone 12/13/2023 7:15 AM EDT Virtual [facility] Caio VALERA Start: 12-13-2023 Subsequent hospital visit by physician 12/13/2023 5:45 AM EDT Hospital Encounter [facility] [place] [place] [address] [place] [id number] Department of Otolaryngology, Head and Neck Surgery [place] [id number] [facility] Caio [place] Start: 05-18-2023 Influenza vaccination Influenza Vacc ine (#1) [facility] Start: 06-12-2018 End: 06-12-2018 Lifestyle education regarding diet Lifestyle education regarding diet [facility] Start: 01-11-2018 End: 01-11-2018 Abiodun Mcdonnell [facility] Start: 12-31-2017 End: 12-31-2017 Abiodun Mcdonnell [facility] Start: 04-24-2010 DTaP/Tdap/Td Vaccine s (1 - Tdap) DTaP/Tdap/Td Vaccines (1 - Tdap) [facility] Start: 1999 Diabetes mellitus screening Diabetes Screening [facility] Start: 1999 Hepatitis C screening Hepatitis C Sc [facility] Start: 1987 Pneumococcal Vaccine : Pediatrics (0 to 5 Years) and At-Risk Patients (6 to 64 Years) (1 - PCV) Pneumococcal Vaccine: Pediatrics (0 to 5 Years) and At-Risk Patients (6 to 64 Years) (1 - PCV) [facility] Start: 1982 MMR Vaccines (1 of 1 - Standard series) MMR Vaccines (1 of 1 - Standard series) [facility] Start: 1982 Varicella vaccination Varicell a Vaccines (1 of 2 - 2-dose childhood series) [facility] Start: 1981 COVID-19 Vaccine (#1) COVID-19 Vacci ne (#1) [facility] Start: 1981 Hepatitis B Vaccines (1 of 3 - 3-dose series) Hepatitis B Vaccines (1 of 3 - 3-dose series) [facility] Start: 1981 HIV screening HIV Screening [facility] Start: 1981 Lipid panel Lipid Panel [facility] Start: 1981 Yearly Adult Physical Yearly Adult P hysical [facility] Electrocardiogram, 12-lead PRN ACS symptoms Electrocardiogram, 12-lead PRN ACS symptoms ECG Routine As needed until discontinued starting 12/01/2023 [facility] Service Area Work Phone: Comment on above: As needed until disc ontinued starting 12/01/2023 End: 11-30-2023 Streptococcus pyogenes DNA [Presence] in Throat by TARIK with probe detection Group A Streptococcus, PCR Microbiology STAT Once (Lab) for 1 Occurrences starting 11/30/2023 until 11/30/2023 [facility] Service Area Work Phone: Comment on above: Once (Lab) for 1 Occ urrences starting 11/30/2023 until 11/30/2023 Surgical pathology study Surgica l Pathology Exam Pathology and Cytology Routine Salivary stone Release Upon Ordering for 1 Occurrences starting 12/13/2023 [facility] Service Area Work Phone: Comment on above: Release Upon Orderin g for 1 Occurrences starting 12/13/2023 Td (7 yrs or older) [facility] Immunizations Immunization Date Immunization Notes Care Provider Fa richarty NEGATED: Highlighted row has not occurred!06-12-2018 influenza, injectable, quadrivalent, preservative free Crow Ondobo [facility] Comment on above: Source: New Immuniza tion Record NEGATED: Highlighted row has not occurred!06-12-2018 tetanus toxoid, reduced diphtheria toxoid, and acellular pertussis vaccine, adsorbed Crow Ondobo [facility] Comment on above: Source: New Immuniza tion Record NEGATED: Highlighted row has not occurred! tetanus and diphtheria toxoids, adsorbed, for adult use Alejandra Rai [facility] Comment on above: Source: New Immuniza tion Record Payers Date Payer Category Payer Unknown [id number] 2023 Unknown ERICA MALDONADO P [id number] 2023-Present [address] [place] [address] [id number] 2023 Unknown [id number] 2017 Private Health Insurance [facility] [id number] 2017-Present [address] [place] [address] [id number] 2017 Private Health Insurance [id number] 2014 Medicaid [id number] 1981 Unknown [id number] 1981 Unknown [id number] 1981 Unknown [id number] 1981 Unknown [id number] 1981 Unknown [id number] 1981 Unknown [id number] Social History Date Type Detail Facility Sex Assigned At Male Rama mata [facility] Start: 12-31-2017 End: 12-01-2023 Tobacco smoking status NCIS Unknown if ever smoked [facility] Start: 12-31-2017 Alcohol intake [facility] Start: 06-12-2018 Tobacco smoking status NHIS Light tobacco smoker [facility] Start: 06-12-2018 Alcohol intake beer occasionally [facility] Start: 06-12-2018 History of tobacco use Occasional cigarette smoker [facility] Start: 06-12-2018 Nutritional observable coffee and tea [facility] Start: 06-12-2018 Tobacco use and exposure Cigarette: No Details Available Quantity Details - Cigarette: 7 Cigarettes per day [facility] History of tobacco use Passive smoker [facility] Work Phone: Start: 12-01-2023 End: 12-13-2023 Alcohol intake Ex-drinker (finding) [facility] Work Phone: Start: 12-01-2023 End: 12-06-2023 History of Social function [facility] Work Phone: Start: 12-01-2023 End: 12-06-2023 Alcohol Use Disorder Identification Test - Consumption [AUDIT-C] [facility] Work Phone: How often to you hav e a drink containing alcohol? Patient declined [facility] Work Phone: In the past 12 month s, was there a time when you were not able to pay the mortgage or rent on time? No [facility] Work Phone: Start: 1981 Sex Assigned At Not on file [facility] Work Phone: Start: 11-20-2023 End: 12-13-2023 Exposure to SARS-CoV-2 (event) Not sure [facility] Work Phone: Start: 12-06-2023 End: 12-13-2023 Tobacco smoking status NHIS Smokes tobacco daily [facility] History of tobacco use [facility] Work Phone: History of tobacco use Cigar Smoker [facility] Work Phone: Start: 12-06-2023 Tobacco Comment Black and mild [facility] Work Phone: Clinical Notes 11-30-2023 to 12-06-2023 Keyana Amezcua MD - 12/06/2023 2:00 PM Tayla Cummings MD - 12/05/2023 11:50 AM Hailee Calderon RN - 12/01/2023 11:06 AM Hailee Calderon RN - 12/01/2023 11:05 AM EDT Note Date & Type Note Facility 12-06-2023 History of Presen t illness Narrative Chief Complaint: Chief Complaint Patient presents with Follow-up Swollen gland submandibular History of Present Illness: 43 y.o. male presents to [facility] on 12/06/23 with a left submandibular sialadenitis and sialolith. The patient was seen by Dr. Cummings yesterday. The patient started to have pain and fullness in the left submandibular region around the beginning of this month. He has had multiple visits to the emergency department and been on antibiotics for almost 2 weeks. He has noticed some moderate improvement in his left-sided swelling, but no resolution. He reports that the pain is significant and it is preventing him from eating solid foods and he is essentially just been on fluids. He has been also doing conservative measures including warm compresses, massages, sialagogues, and good hydration. The patient had a CT neck on 11/30/2023 showing: IMPRESSION: 1. Marked abnormal enlargement and enhancement of the left submandibular gland including a hypodense rim enhancing area possibly a submandibular gland abscess or extremely dilated submandibular gland duct containing a very large calcification. There is effacement of the left pharyngeal wall and left vallecula. 2. There is adenopathy adjacent to the left submandibular gland and midline submandibular adenopathy. The patient recalls that he may have had a stone in the left duct several years ago. He denies a history of other salivary gland problems. The patient does report that he is allergic to penicillin. He states that he had a severe reaction to this as a child. Past Medical History Vitiligo Past Surgical History Orthopedic procedures Social History Social History Socioeconomic History Marital status: Single Spouse name: Not on file Number of children: Not on file Years of education: Not on file Highest education level: Not on file Occupational History Not on file Tobacco Use Smoking status: Every Day Types: Cigarettes, Cigars Passive exposure: Past Smokeless tobacco: Not on file Tobacco comments: Black and mild Vaping Use Vaping Use: Unknown Substance and Sexual Activity Alcohol use: Not Currently Drug use: Not on file Sexual activity: Not on file Other Topics Concern Not on file Social History Narrative Not on file Social Determinants of Health Financial Resource Strain: Low Risk (12/01/2023) Overall Financial Resource Strain (CARDIA) Difficulty of Paying Living Expenses: Not hard at all Food Insecurity: Not on file Transportation Needs: No Transportation Needs (12/01/2023) PRAPARE - Transportation Lack of Transportation (Medical): No Lack of Transportation (Non-Medical): No Physical Activity: Not on file Stress: Not on file Social Connections: Not on file Intimate Partner Violence: Not on file Housing Stability: Low Risk (12/01/2023) Housing Stability Vital Sign Unable to Pay for Housing in the Last Year: No Number of Places Lived in the Last Year: 1 Unstable Housing in the Last Year: No Family History No family history on file. Medications: Current Outpatient Medications Medication Sig Dispense Refill chlorhexidine (Peridex) 0.12 % solution SWISH AND SPIT WITH 15 TO 30 ML BY MOUTH IN THE MORNING AND IN THE EVENING FOR 1 WEEK THEN STOP ciprofloxacin (Cipro) 500 mg tablet Take 1 tablet (500 mg) by mouth 2 times a day for 10 days. 20 tablet 0 clindamycin (Cleocin) 300 mg capsule Take 1 capsule (300 mg) by mouth every 6 hours for 7 days. 28 capsule 0 loratadine (Claritin) 10 mg tablet Take 1 tablet (10 mg) by mouth once daily. omeprazole (PriLOSEC) [address] capsule Take 1 capsule (20 mg) by mouth once daily. oxyCODONE-acetaminophen (Percocet) 7.5-325 mg tablet Take 1 tablet by mouth 2 times a day for 7 days. 14 tablet 0 predniSONE (Deltasone) 20 mg tablet Take 2 tablets (40 mg) by mouth once daily for 7 days. Do not start before December 02, 2023. 14 tablet 0 No current facility-administered medications for this visit. Allergies: Penicillins Immunizations: There is no immunization history on file for this patient. Review of Systems: Constitutional: Negative for fever, weight loss and weight gain HENT: Negative for ear pain, sore throat and hoarseness. Negative for difficulty swallowing Cardiovascular: Negative for chest pain and dyspnea on exertion (Can climb up 2 floors) Respiratory: Is not experiencing shortness of breath Gastrointestinal: Negative for nausea and vomiting Neurological: Negative for headaches. Psychiatric: The patient is not nervous/anxious Musculoskeletal: Denies muscle pain/weakness Heme/Lymph: Negative for lymph nodes, easy bruising Physical Exam Vital Signs: Temp 35.5 C (95.9 F) Ht 1.778 m (5' 10) Wt 83.6 kg (184 lb 3.2 oz) BMI 26.43 kg/m General: Well-developed, well-nourished. No distress. Average habitus Communication and Voice: Clear pitch and clarity Respiratory Respiratory effort: Equal inspiration and expiration without stridor Cardiovascular Peripheral Vascular: Warm extremities with equal pulses Neuro: Patient oriented to person, place, and time; Appropriate mood and affect; Gait is intact with no imbalance; Cranial nerves II-XII are intact Head and Face Inspection: Normocephalic and atraumatic without mass or lesion Palpation: Facial skeleton intact without bony stepoffs Facial Strength: Facial motility symmetric and full bilaterally Eyes: PERRLA. No nystagmus with normal extraocular motion bilaterally ENT Pinna: External ear intact and fully developed External canal: Canal is patent with intact skin Tympanic Membrane: Clear and mobile External nose: No scar or anatomic deformity Internal Nose: Septum intact and midline. No edema, polyp, or rhinorrhea. TMJ: No pain to palpation with full mobility Salivary Glands: Significant left submandibular fullness. I am able to express purulent fluid from the left [place]'s duct Lips: No lesion. Oral cavity: No mass or lesion. I am able to feel what feels like a submandibular stone in the left floor of mouth. I am not able to visualize the stone from the duct Oropharynx: No mass or lesion. Tonsillar fossa symmetric. Base of tongue soft without mass or induration Neck Trachea: Midline trachea. Thyroid: No mass or nodularity Lymphatics: No lymphadenopathy Impression/Plan: 43 y.o. male presents to [facility] on 12/06/23 with a left submandibular sialadenitis and sialolith. The patient is having significant symptoms and pain from the stone. He has been on multiple courses of antibiotics with only moderate improvement of his symptoms. -I think that the stone is too large and too posterior to attempted procedure in the office. We will plan to take the patient for a sialodochoplasty and removal of the submandibular stone surgery. It would be ideal if we could resolve the infection prior to taking the patient to the operating room but it seems like his symptoms are not completely resolving with the stone in place. The patient would like to proceed with surgery. The procedure risks, benefits, alternatives, potential complications, possible outcomes, also the option of no treatment were reviewed with the patient, who indicated he/she understood and wished to proceed forward with the procedure. documented in this encounter [facility] Work Phone: 12-05-2023 History of Presen t illness Narrative History Of Present Illness Abiodun Mcdonnell is a 43 y.o. male presenting with: Sialoadenitis and sialolithiasis of left submandibular gland. He is kindly referred by Danny. His CT scan shows a big 2x1 cm stone in left dharmesh canal. It looks relatively distal on CT, but on today's examination-palpation, I feel it is more distal. Plus floor of mouth is tender due to ongoing infection. Pus is oozing out of left dharmesh canal. Plan is to continue oral antibiotics, and refer him to head and neck surgery. I think trying to remove the stone with an intraoral incision could be quite difficult. Past Medical History He has no past medical history on file. Surgical History He has no past surgical history on file. Social History He reports that he does not currently use alcohol. No history on file for tobacco use and drug use. Family History No family history on file. Allergies Penicillins Review of Systems Ear pain Sore throat Dry mouth/mouth breathing Abdominal pain Pain on swallowing Swollen glands Easy bruising Physical Exam General appearance: Healthy-appearing, well-nourished, well groomed, in no acute distress. Head and Face: Atraumatic with no masses, lesions, or scarring. Salivary glands: No tenderness of the parotid glands or parotid masses. No tenderness of the submandibular glands or submandibular masses. Facial strength: Normal strength and symmetry, no synkinesis or facial tic. Eyes: Conjunctivas look non-hyperemic bilaterally Ears: Bilaterally ear canals look normal. Tympanic membranes look intact, no hyperemia, fluid or retraction. Hearing grossly normal. Nose: Mucosa looks normal. No purulent discharge. Septum essentially straight. Oral Cavity/Mouth: Lips and tongue look normal. Throat: No postnasal discharge. No tonsil hypertrophy. No hyperemia. Neck: Symmetrical, trachea midline. Pulmonary: Normal respiratory effort. Lymphatic: No palpable pathologic lymph nodes at neck. Neurological/Psychiatric Orientation to person, place, and time: Normal. Mood and affect: Normal. Extremities: No clubbing. Skin: No significant skin lesions were noted at face or neck Last Recorded Vitals There were no vitals taken for this visit. Relevant Results Assessment and Plan: Abiodun Mcdonnell is a 43 y.o. male presenting with: Sialoadenitis and sialolithiasis of left submandibular gland. He is kindly referred by Danny. His CT scan shows a big 2x1 cm stone in left dharmesh canal. It looks relatively distal on CT, but on today's examination-palpation, I feel it is more distal. Plus floor of mouth is tender due to ongoing infection. Pus is oozing out of left dharmesh canal. Plan is to continue oral antibiotics, and refer him to head and neck surgery. I think trying to remove the stone with an intraoral incision could be quite difficult. Dominick Cummings Otolaryngology - Head & Neck Surgery documented in this encounter [facility] Work Phone: 12-01-2023 History of Presen t illness Narrative 12/01/23 1106 Current Planned Discharge Disposition Current Planned Discharge Disposition Home Pt has written dc order. Pt is independent and will not have any skilled needs at the time of discharge. PATIENT HAS A SECURE DISCHARGE TO RETURN HOME NO SKILLED NEEDS. 12/01/23 1103 Discharge Planning Living Arrangements Alone Support Systems None Assistance Needed none Type of Residence Private residence Who is requesting discharge planning? Provider Home or Post Acute Services None Patient expects to be discharged to: home Does the patient need discharge transport arranged? No Financial Resource Strain How hard is it for you to pay for the very basics like food, housing, medical care, and heating? Not hard Housing Stability In the last 12 months, was there a time when you were not able to pay the mortgage or rent on time? N In the last 12 months, how many places have you lived? 1 In the last 12 months, was there a time when you did not have a steady place to sleep or slept in a detention (including now)? N Transportation Needs In the past 12 months, has lack of transportation kept you from medical appointments or from getting medications? no In the past 12 months, has lack of transportation kept you from meetings, work, or from getting things needed for daily living? No Patient Choice Patient / Family choosing to utilize agency / facility established prior to hospitalization No documented in this encounter [facility] Work Phone: 12-01-2023 Hospital course Narrative Discharge Diagnosis Sialoadenitis of submandibular gland Issues Requiring Follow-Up ENT follow-up for sialoadenitis Discharge Meds Your medication list START taking these medications Instructions Last Dose Given Next Dose Due clindamycin 300 mg capsule Commonly known as: Cleocin Take 1 capsule (300 mg) by mouth every 6 hours for 7 days. predniSONE 20 mg tablet Commonly known as: Deltasone Start taking on: December 02, 2023 Take 2 tablets (40 mg) by mouth once daily for 7 days. Do not start before December 02, 2023. Where to Get Your Medications These medications were sent to [facility] [address], [address], [place] [facility] [address] Hours: 9 AM to 6 PM Mon-Fri, 9 AM to 1 PM Sat clindamycin 300 mg capsule predniSONE 20 mg tablet Test Results Pending At Discharge Pending Labs Order Current Status Group A Streptococcus, PCR Collected (11/30/232001) Hospital Course Patient admitted to the hospital for worsening left submandibular pain. Full details of admission history and physical. Patient was admitted and case was discussed with ENT at time of admission. Recommendation was 23 hours of IV antibiotics and IV steroids. When I visited the patient this morning he stated that he cannot stay because he had to go to work. He he was adamant about leaving and following up as an outpatient. Patient has an appoint with ENT on December 05, 2023 at 11:50 AM at [facility]. I let ENT know that the patient wanted to leave and while I try to explain the patient that we beneficial to continue with IV antibiotics for at least the remainder of the day he refused. I did prescribe him clindamycin 300 mg every 6 hours as well as prednisone 40 mg daily that we will continue taking until he sees ENT next week. I went into detail with the patient about the concerns regarding his gland enlargement and the potential risk of spreading to other tissues or even ascending infection. He understood. Should be noted that the patient lives in [place] and is up here working. Otherwise patient's vital signs are stable and will be discharged. Pertinent Physical Exam At Time of Discharge Physical Exam Generally no acute distress HEENT PERRL EOMI, left submandibular gland tender to palpation roughly 2 to 3 cm. Cardiovascular S1-S2 regular rhythm Lungs clear Abdomen nontender bowel sounds present Outpatient Follow-Up No future appointments. Total time spent discharge was 45 minutes Darling Ackerman MD documented in this encounter [facility] Work Phone: 12-01-2023 Consult note Formatting of th is note might be different from the original. Consults Reason For Consult Left submandibular sialolithiasis complicated with sialoadenitis History Of Present Illness Abiodun Mcdonnell is a 43 y.o. male presenting with left submandibular pain. In summary, Abiodun Mcdonnell, a 43-year-old male, who came to [facility] ER last night for persistent left-sided neck pain. He visited [facility] emergency department last Sunday, ~5 days ago due to discomfort in the left side of his neck and ear, along with a sore throat. His strep test came back negative, he was diagnosed with anterior cervical adenopathy. The following day, an oral surgeon identified an infection in his submandibular gland and initiated treatment with an oral antibiotic and steroids. Since Sunday, four days ago, his pain and swelling have significantly worsened, making it difficult for him to swallow, prompting him to come to ER. He has no fever. The CT scan conducted at the emergency room has identified a sizable stone lodged in the left submandibular duct, along with a severe infection affecting the left submandibular gland, which is progressing towards abscess formation. Past Medical History He has no past medical history on file. Surgical History He has no past surgical history on file. Social History He reports that he does not currently use alcohol. No history on file for tobacco use and drug use. Family History No family history on file. Allergies Penicillins Review of Systems Left submandibular pain No fever Physical Exam Virtual visit Last Recorded Vitals Blood pressure 112/64, pulse 73, temperature 36.5 C (97.7 F), temperature source Temporal, resp. rate 16, height 1.778 m (5' 10), weight 85 kg (187 lb 6.3 oz), SpO2 92 %. Relevant Results Interpreted By: Tita Brennan, STUDY: CT SOFT TISSUE NECK W IV CONTRAST; 11/30/2023 9:48 pm INDICATION: Signs/Symptoms:Left submandibular swelling. Left neck pain and left ear pain. COMPARISON: None. ACCESSION NUMBER(S): [id number] ORDERING CLINICIAN: BOBBI SMITH TECHNIQUE: Axial CT images of the neck were obtained. 75 mL of Omnipaque 350 intravenously. Intravenous contrast agent. The images were reformatted in angled axial, coronal and sagittal planes. FINDINGS: Lung apices appear clear. Thyroid gland appears normal. The left submandibular gland is enlarged with heterogeneous enhancement. There are enhancing enlarged lymph nodes lateral to the left submandibular gland. There is poorly defined hypodensity in the medial aspect of the submandibular gland measuring 5.7 cm in length by 1.9 cm transverse with slight rim enhancement. This could be due to a dilated obstructed left submandibular duct. There is a 2.2 by 1.2 cm calcification in the expected location of the left submandibular duct. Due to the abnormally enlarged left submandibular gland there is significant mass effect along the left pharyngeal wall effacing the left vallecula with swelling in the floor of the mouth and extending inferiorly into the left supraglottic soft tissues to the left of midline. Submandibular adenopathy is noted. The right submandibular gland appears normal. The parotid glands appear normal. Epiglottis is normal. No retropharyngeal soft tissue swelling. Vocal cords unremarkable. Mild paranasal sinus mucosal thickening visualized orbits unremarkable. IMPRESSION: 1. Marked abnormal enlargement and enhancement of the left submandibular gland including a hypodense rim enhancing area possibly a submandibular gland abscess or extremely dilated submandibular gland duct containing a very large calcification. There is effacement of the left pharyngeal wall and left vallecula. 2. There is adenopathy adjacent to the left submandibular gland and midline submandibular adenopathy. MACRO: None Signed by: Tita Brennan 11/30/2023 10:37 PM Dictation workstation: [id number] Assessment/Plan Dx: Left submandibular sialolithiasis complicated with severe sialoadenitis. Recommendations: 1- IV clindamycin 600 mg roughly q6, one or two more doses before his discharge (he is allergic to penicillin). 2- one more dose of dexamethasone 10 mg IV in the afternoon around 3 pm. 3- pain control 4- patient could be discharged today, not exceeding 24 hours of total hospital stay 5- homegoing meds: oral clindamycin 300 mg, every 6 hours, and oral prednisone 40 mg, daily for 7 days 6- patient can come over to see me at [facility] in [place], [address], on Sunday12.05.2023 at 11:50 am; or alternatively he can come to [facility] [address], on Sunday12.04.2023 at 11:50 am; for follow up and removal of the stone. [facility] Work Phone: 12-01-2023 Consult note Formatting of th is note might be different from the original. Consults Reason For Consult Left submandibular sialolithiasis complicated with sialoadenitis History Of Present Illness Abiodun Mcdonnell is a 43 y.o. male presenting with left submandibular pain. In summary, Abiodun Mcdonnell, a 43-year-old male, who came to [facility] ER last night for persistent left-sided neck pain. He visited [facility] emergency department last Sunday, ~5 days ago due to discomfort in the left side of his neck and ear, along with a sore throat. His strep test came back negative, he was diagnosed with anterior cervical adenopathy. The following day, an oral surgeon identified an infection in his submandibular gland and initiated treatment with an oral antibiotic and steroids. Since Sunday, four days ago, his pain and swelling have significantly worsened, making it difficult for him to swallow, prompting him to come to ER. He has no fever. The CT scan conducted at the emergency room has identified a sizable stone lodged in the left submandibular duct, along with a severe infection affecting the left submandibular gland, which is progressing towards abscess formation. Past Medical History He has no past medical history on file. Surgical History He has no past surgical history on file. Social History He reports that he does not currently use alcohol. No history on file for tobacco use and drug use. Family History No family history on file. Allergies Penicillins Review of Systems Left submandibular pain No fever Physical Exam Virtual visit Last Recorded Vitals Blood pressure 112/64, pulse 73, temperature 36.5 C (97.7 F), temperature source Temporal, resp. rate 16, height 1.778 m (5' 10), weight 85 kg (187 lb 6.3 oz), SpO2 92 %. Relevant Results Interpreted By: Tita Brennan, STUDY: CT SOFT TISSUE NECK W IV CONTRAST; 11/30/2023 9:48 pm INDICATION: Signs/Symptoms:Left submandibular swelling. Left neck pain and left ear pain. COMPARISON: None. ACCESSION NUMBER(S): [id number] ORDERING CLINICIAN: BOBBI SMITH TECHNIQUE: Axial CT images of the neck were obtained. 75 mL of Omnipaque 350 intravenously. Intravenous contrast agent. The images were reformatted in angled axial, coronal and sagittal planes. FINDINGS: Lung apices appear clear. Thyroid gland appears normal. The left submandibular gland is enlarged with heterogeneous enhancement. There are enhancing enlarged lymph nodes lateral to the left submandibular gland. There is poorly defined hypodensity in the medial aspect of the submandibular gland measuring 5.7 cm in length by 1.9 cm transverse with slight rim enhancement. This could be due to a dilated obstructed left submandibular duct. There is a 2.2 by 1.2 cm calcification in the expected location of the left submandibular duct. Due to the abnormally enlarged left submandibular gland there is significant mass effect along the left pharyngeal wall effacing the left vallecula with swelling in the floor of the mouth and extending inferiorly into the left supraglottic soft tissues to the left of midline. Submandibular adenopathy is noted. The right submandibular gland appears normal. The parotid glands appear normal. Epiglottis is normal. No retropharyngeal soft tissue swelling. Vocal cords unremarkable. Mild paranasal sinus mucosal thickening visualized orbits unremarkable. IMPRESSION: 1. Marked abnormal enlargement and enhancement of the left submandibular gland including a hypodense rim enhancing area possibly a submandibular gland abscess or extremely dilated submandibular gland duct containing a very large calcification. There is effacement of the left pharyngeal wall and left vallecula. 2. There is adenopathy adjacent to the left submandibular gland and midline submandibular adenopathy. MACRO: None Signed by: Tita Brennan 11/30/2023 10:37 PM Dictation workstation: [id number] Assessment/Plan Dx: Left submandibular sialolithiasis complicated with severe sialoadenitis. Recommendations: 1- IV clindamycin 600 mg roughly q6, one or two more doses before his discharge (he is allergic to penicillin). 2- one more dose of dexamethasone 10 mg IV in the afternoon around 3 pm. 3- pain control 4- patient could be discharged today, not exceeding 24 hours of total hospital stay 5- homegoing meds: oral clindamycin 300 mg, every 6 hours, and oral prednisone 40 mg, daily for 7 days 6- patient can come over to see me at [facility] in [place], [address], on Sunday12.05.2023 at 11:50 am; or alternatively he can come to [facility] [address], on Sunday12.04.2023 at 11:50 am; for follow up and removal of the stone. documented in this encounter [facility] Work Phone: 12-01-2023 Plan of care note Problem: Pain Goal: My pain/discomfort is manageable Outcome: Progressing The patient's goals for the shift include The clinical goals for the shift include antibiotics [facility] 12-01-2023 Miscellaneous Notes Problem: Pain Goal: My pain/discomfort is manageable Outcome: Progressing The patient's goals for the shift include The clinical goals for the shift include antibiotics The patient's goals for the shift include The clinical goals for the shift include antibiotics documented in this encounter [facility] Work Phone: 12-01-2023 Plan of care note The patient's goals for the shift include The clinical goals for the shift include antibiotics [facility] Work Phone: 12-01-2023 Nurse Note Patient arrived from ED [facility] Work Phone: 12-01-2023 Nurse Note Patient arrived from ED documented in this encounter [facility] Work Phone: 12-01-2023 History and physical note History Of Present Illness Abiodun Mcdonnell is a 43 y.o. male presenting with Left-Sided Neck Pain. The patient went to [facility] emergency department on Sunday because of some pain in the left side of his neck and in his left ear. He also complained of a sore throat. He had a negative strep test and was felt to have pain related to anterior cervical adenopathy. The following day he saw an oral surgeon who stated that the problem was an infection in his submandibular gland. He was started on an unknown antibiotic and possibly some steroids. He says that some imaging was done but he was nonspecific. Since Sunday, 4 days ago, the pain and swelling has gotten much worse. He is unable to swallow solids and has been swallowing only liquids. Denies any recent fevers. He believes he may have been on antibiotic but knows he was on some type of steroids. He denies cough congestion runny nose sore throat no abdominal pain nausea vomiting. He has a decayed tooth on the left side and missing tooth but states that this is not the cause of his symptoms today. Patient states he took 1600 mg of ibuprofen about 3 hours ago with no improvement of his pain. The patient's ED diagnostic workup was noted for a normal CBC with differential. It was some minimal anemia noted with hemoglobin of 12.9 and hematocrit of 39.9. Patient's blood chemistry was noted to be within normal limits. The patient underwent CT soft tissue neck with IV contrast. Was noted for marked abnormal enlargement enhancement of the left submandibular gland including a hypodense rim-enhancing area possibly a submandibular gland abscess or extremely dilated submandibular gland duct containing a very large calcification. There is effacement of the left pharyngeal wall and left vallecula. There is adenopathy adjacent to the left submandibular gland and midline submandibular adenopathy. In the ED the patient's vital signs were noted for Tmax 36.8, pulse rate 90, respiratory rate 16, BP 124/98, saturation 96% on room air. I was informed after the ED physician spoke with the ENT physician that the patient will be loaded with 900 mg IV clindamycin. ENT would like an additional 600 mg IV clindamycin every 12 hours apart x 2 doses. IV Decadron 10 mg x 1 was requested by ENT. ENT would like the patient to be on prednisone 40 mg x 7 days followed by prednisone taper. Past Medical History Vitiligo Surgical History Left knee arthroscopy for ligament tear Social History He has no history on file for tobacco use, alcohol use, and drug use. Family History Mother: Hypertension Father: Pancreatic cancer. Allergies Penicillins Review of Systems 14-point ROS otherwise negative, as per HPI/Interval History. General: No change in weight. No weakenss. No Fevers/Chills/Night Sweats. Left neck pain Skin: No skin/hair/nail changes. No rashes or sores. Head: No trauma. No Headache/nasuea/vomitting. Eyes: No visual changes. No tearing. No itching. Ears: No hearing loss. No tinnitus. No vertigo. No discharge. Nose, Sinuses: No rhinorrhea, No nasal congestion. No epistaxis. Mouth, Throat, Neck: No bleeding gums, hoarseness, sore throat or swollen neck Cardiac: No palpitations. No WOO. No PND. No Orthopnea. Respiratory: No Shortness of Breath. No wheezing. No cough. No hemoptysis. GI: No nausea/vomiting. No indigestion. No diarrhea. No constipation. Extremities: No numbness or tingling. No paresthesias. Urinary: No change in urinary frequency. No change in hesitancy. No hematuria. No incontinence. Physical Exam Constitutional: Pleasant. Vitiligo noted Eyes: PERRL, EOMI, ENMT: mucous membranes moist Head/Neck: Significant left-sided submandibular adenopathy and tenderness to palpation. Respiratory/Thorax: Patent airways, CTAB, Cardiovascular: Regular, rate and rhythm, no murmurs Gastrointestinal: Soft, non-distended, +BS. Musculoskeletal: ROM intact, no joint swelling, normal strength Extremities: peripheral pulses intact; no edema Neurological: Alert and Oriented x 3; no focal deficits; gross motor and sensation intact; CN II-XII intact. No asterixis. Psychological: Appropriate mood and behavior Skin: No lesions, No rashes. Last Recorded Vitals Blood pressure (!) 124/98, pulse 90, temperature 36.8 C (98.2 F), temperature source Oral, resp. rate 16, height 1.778 m (5' 10), weight 85 kg (187 lb 6.3 oz), SpO2 96 %. Relevant Results Lab Results Component Value Date WBC 11.1 11/30/2023 HGB 12.9 (L) 11/30/2023 HCT 39.9 (L) 11/30/2023 MCV 85 11/30/2023 PLT 231 11/30/2023 Lab Results Component Value Date GLUCOSE 85 11/30/2023 CALCIUM 9.1 11/30/2023 NA 137 11/30/2023 K 3.6 11/30/2023 CO2 26 11/30/2023 CL 101 11/30/2023 BUN 14 11/30/2023 CREATININE 1.10 11/30/2023 No results found for: HGBA1C No CT head results found for the past 12 months Scheduled medications clindamycin, 600 mg, intravenous, q12h dexAMETHasone, 10 mg, intravenous, Once pantoprazole, 40 mg, intravenous, Daily predniSONE, 40 mg, oral, Daily Continuous medications sodium chloride 0.9%, 100 mL/hr PRN medications PRN medications: acetaminophen OR acetaminophen OR acetaminophen, benzocaine-menthol, dextromethorphan-guaifenesin, guaiFENesin, HYDROcodone-acetaminophen, ketorolac, ondansetron OR ondansetron, polyethylene glycol Assessment/Plan Principal Problem: Sialoadenitis of submandibular gland Active Problems: Submandibular abscess Submandibular lymphadenopathy Abiodun Mcdonnell is a 43 y.o. male presenting with Left-Sided Neck Pain. Patient admitted for further evaluation and management. Sialoadenitis of the Left Submandibular Gland Admit to RN F Vital signs per protocol Hydration with IVF Apply warm compresses and heat therapy Gland massage and milk duct as possible Encourage Sialagogues if possible Clear liquid diet Avoid anticholinergics Suspected Secondary Bacterial infection so we will continue IV clindamycin Possible abscess versus stone formation Will defer Sialoendoscopy versus Sialoadenetomy to ENT ENT Consult requested Analgesia as needed GI and DVT prophylaxis H2 goran Patient is ambulating freely low risk for DVT This Dictation was Transcribed using a [employer] Voice Recognition System Device (with Compatible Computer + Software) and as such may contain Grammatical Errors and Unintentional Typing Misprints. I spent 31 minutes in the professional and overall care of this patient. Rocio Pan MD [facility] Work Phone: 12-01-2023 History and physical note History Of Present Illness Abiodun Mcdonnell is a 43 y.o. male presenting with Left-Sided Neck Pain. The patient went to [facility] emergency department on Sunday because of some pain in the left side of his neck and in his left ear. He also complained of a sore throat. He had a negative strep test and was felt to have pain related to anterior cervical adenopathy. The following day he saw an oral surgeon who stated that the problem was an infection in his submandibular gland. He was started on an unknown antibiotic and possibly some steroids. He says that some imaging was done but he was nonspecific. Since Sunday, 4 days ago, the pain and swelling has gotten much worse. He is unable to swallow solids and has been swallowing only liquids. Denies any recent fevers. He believes he may have been on antibiotic but knows he was on some type of steroids. He denies cough congestion runny nose sore throat no abdominal pain nausea vomiting. He has a decayed tooth on the left side and missing tooth but states that this is not the cause of his symptoms today. Patient states he took 1600 mg of ibuprofen about 3 hours ago with no improvement of his pain. The patient's ED diagnostic workup was noted for a normal CBC with differential. It was some minimal anemia noted with hemoglobin of 12.9 and hematocrit of 39.9. Patient's blood chemistry was noted to be within normal limits. The patient underwent CT soft tissue neck with IV contrast. Was noted for marked abnormal enlargement enhancement of the left submandibular gland including a hypodense rim-enhancing area possibly a submandibular gland abscess or extremely dilated submandibular gland duct containing a very large calcification. There is effacement of the left pharyngeal wall and left vallecula. There is adenopathy adjacent to the left submandibular gland and midline submandibular adenopathy. In the ED the patient's vital signs were noted for Tmax 36.8, pulse rate 90, respiratory rate 16, BP 124/98, saturation 96% on room air. I was informed after the ED physician spoke with the ENT physician that the patient will be loaded with 900 mg IV clindamycin. ENT would like an additional 600 mg IV clindamycin every 12 hours apart x 2 doses. IV Decadron 10 mg x 1 was requested by ENT. ENT would like the patient to be on prednisone 40 mg x 7 days followed by prednisone taper. Past Medical History Vitiligo Surgical History Left knee arthroscopy for ligament tear Social History He has no history on file for tobacco use, alcohol use, and drug use. Family History Mother: Hypertension Father: Pancreatic cancer. Allergies Penicillins Review of Systems 14-point ROS otherwise negative, as per HPI/Interval History. General: No change in weight. No weakenss. No Fevers/Chills/Night Sweats. Left neck pain Skin: No skin/hair/nail changes. No rashes or sores. Head: No trauma. No Headache/nasuea/vomitting. Eyes: No visual changes. No tearing. No itching. Ears: No hearing loss. No tinnitus. No vertigo. No discharge. Nose, Sinuses: No rhinorrhea, No nasal congestion. No epistaxis. Mouth, Throat, Neck: No bleeding gums, hoarseness, sore throat or swollen neck Cardiac: No palpitations. No WOO. No PND. No Orthopnea. Respiratory: No Shortness of Breath. No wheezing. No cough. No hemoptysis. GI: No nausea/vomiting. No indigestion. No diarrhea. No constipation. Extremities: No numbness or tingling. No paresthesias. Urinary: No change in urinary frequency. No change in hesitancy. No hematuria. No incontinence. Physical Exam Constitutional: Pleasant. Vitiligo noted Eyes: PERRL, EOMI, ENMT: mucous membranes moist Head/Neck: Significant left-sided submandibular adenopathy and tenderness to palpation. Respiratory/Thorax: Patent airways, CTAB, Cardiovascular: Regular, rate and rhythm, no murmurs Gastrointestinal: Soft, non-distended, +BS. Musculoskeletal: ROM intact, no joint swelling, normal strength Extremities: peripheral pulses intact; no edema Neurological: Alert and Oriented x 3; no focal deficits; gross motor and sensation intact; CN II-XII intact. No asterixis. Psychological: Appropriate mood and behavior Skin: No lesions, No rashes. Last Recorded Vitals Blood pressure (!) 124/98, pulse 90, temperature 36.8 C (98.2 F), temperature source Oral, resp. rate 16, height 1.778 m (5' 10), weight 85 kg (187 lb 6.3 oz), SpO2 96 %. Relevant Results Lab Results Component Value Date WBC 11.1 11/30/2023 HGB 12.9 (L) 11/30/2023 HCT 39.9 (L) 11/30/2023 MCV 85 11/30/2023 PLT 231 11/30/2023 Lab Results Component Value Date GLUCOSE 85 11/30/2023 CALCIUM 9.1 11/30/2023 NA 137 11/30/2023 K 3.6 11/30/2023 CO2 26 11/30/2023 CL 101 11/30/2023 BUN 14 11/30/2023 CREATININE 1.10 11/30/2023 No results found for: HGBA1C No CT head results found for the past 12 months Scheduled medications clindamycin, 600 mg, intravenous, q12h dexAMETHasone, 10 mg, intravenous, Once pantoprazole, 40 mg, intravenous, Daily predniSONE, 40 mg, oral, Daily Continuous medications sodium chloride 0.9%, 100 mL/hr PRN medications PRN medications: acetaminophen OR acetaminophen OR acetaminophen, benzocaine-menthol, dextromethorphan-guaifenesin, guaiFENesin, HYDROcodone-acetaminophen, ketorolac, ondansetron OR ondansetron, polyethylene glycol Assessment/Plan Principal Problem: Sialoadenitis of submandibular gland Active Problems: Submandibular abscess Submandibular lymphadenopathy Abiodun Mcdonnell is a 43 y.o. male presenting with Left-Sided Neck Pain. Patient admitted for further evaluation and management. Sialoadenitis of the Left Submandibular Gland Admit to RN F Vital signs per protocol Hydration with IVF Apply warm compresses and heat therapy Gland massage and milk duct as possible Encourage Sialagogues if possible Clear liquid diet Avoid anticholinergics Suspected Secondary Bacterial infection so we will continue IV clindamycin Possible abscess versus stone formation Will defer Sialoendoscopy versus Sialoadenetomy to ENT ENT Consult requested Analgesia as needed GI and DVT prophylaxis H2 goran Patient is ambulating freely low risk for DVT This Dictation was Transcribed using a [employer] Voice Recognition System Device (with Compatible Computer + Software) and as such may contain Grammatical Errors and Unintentional Typing Misprints. I spent 31 minutes in the professional and overall care of this patient. Rocio Pan MD documented in this encounter [facility] Work Phone: 11-30-2023 Emergency department Note Department of Emergency Medicine ED Provider Note Admit Date/RoomTime: 11/30/2023 7:33 PM ED Room: [facility] History of Present Illness: Chief Complaint Patient presents with Swollen Glands Pt states he has seen a Dr for his swollen glands and was told it was his saliva glands. Pt states he was told if it gets worse to go to the ED. Abiodun Mcdonnell is a 43 y.o. male no chronic medical illnesses seen and evaluated in triage orders placed by attending physician presenting to the ED for Sialadenitis left side. Patient reports he was seen evaluated a week ago noticed a large stone that he could not get he has been massaging his count taking steroids with no improvement was told to come to the emergency department if not getting any better. He denies fever. Reports he is making saliva he has tried using the candies but did not think that that would work. So he is no longer using them. He believes he may have been on antibiotic but knows he was on some type of steroids. He denies cough congestion runny nose sore throat no abdominal pain nausea vomiting. He has a decayed tooth on the left side and missing tooth but states that this is not the cause of his symptoms today. Patient states he took 1600 mg of ibuprofen about 3 hours ago with no improvement of his pain. Review of Systems: Pertinent positives and negatives are stated within HPI, all other systems reviewed and are negative. PAST HISTORY Past Medical History: has no past medical history on file. Past Surgical History: has no past surgical history on file. Social History: Family History: family history is not on file.. Unless otherwise noted, family history is non contributory The patient s home medications have been reviewed. Allergies: Penicillins PHYSICAL EXAM GENERAL APPEARANCE: Awake and alert. Patient sleeping upon entering room but awakens easily. Appears agitated but cooperative VITAL SIGNS: As per the nurses' triage record. Elevated blood pressure HEENT: Normocephalic, atraumatic. Extraocular muscles are intact. Pupils equal round and reactive to light. Conjunctiva are pink. Negative scleral icterus. Mucous membranes are moist. Tongue in the midline. Pharynx was without erythema or exudates, uvula midline missing tooth left lower jawline decayed. Able to open and shut the mouth with no difficulty. Airways patent. No sign Liquigen or peritonsillar abscess. NECK: Soft Nontender and supple, full gross ROM, no meningeal signs. No nuchal rigidity stridor or trismus noted. Trachea midline. Tenderness to the left neck mandibular area CHEST: Nontender to palpation. Clear to auscultation bilaterally. No rales, rhonchi, or wheezing. HEART: S1, S2. Regular rate and rhythm. No murmurs, gallops or rubs. Strong and equal pulses in the extremities. ABDOMEN: Soft, nontender, nondistended, positive bowel sounds, no palpable masses. MUSCULCSKELETAL: Full gross active range of motion. Ambulating on own with no acute difficulties NEUROLOGICAL: Awake, alert and oriented x 3. Power intact in the upper and lower extremities. Sensation is intact to light touch in the upper and lower extremities. IMMUNOLOGICAL: No lymphatic streaking noted DERM: No petechiae, rashes, or ecchymoses. Vitiligo NURSING NOTES AND VITALS REVIEWED The nursing notes within the ED encounter and vital signs as below have been reviewed by myself BP (!) 124/98 (BP Location: Left arm, Patient Position: Sitting) Pulse 90 Temp 36.8 C (98.2 F) (Oral) Resp 16 Ht 1.778 m (5' 10) Wt 85 kg (187 lb 6.3 oz) SpO2 96% BMI 26.89 kg/m Oxygen Saturation Interpretation: 96% room air The patient s available past medical records and past encounters were reviewed. DIAGNOST IC RESULTS LABS: Labs Reviewed CBC WITH AUTO DIFFERENTIAL - Abnormal Result Value WBC 11.1 nRBC 0.0 RBC 4.67 Hemoglobin 12.9 (*) Hematocrit 39.9 (*) MCV 85 MCH 27.6 MCHC 32.3 RDW 13.5 Platelets 231 Neutrophils % 58.7 Immature Granulocytes %, Automated 0.3 Lymphocytes % 29.7 Monocytes % 10.1 Eosinophils % 0.8 Basophils % 0.4 Neutrophils Absolute 6.50 Immature Granulocytes Absolute, Automated 0.03 Lymphocytes Absolute 3.28 Monocytes Absolute 1.12 (*) Eosinophils Absolute 0.09 Basophils Absolute 0.04 BASIC METABOLIC PANEL - Normal Glucose 85 Sodium 137 Potassium 3.6 Chloride 101 Bicarbonate 26 Urea Nitrogen 14 Creatinine 1.10 eGFR 86 Calcium 9.1 Anion Gap 10 GROUP A STREPTOCOCCUS, PCR As interpreted by me, the above displayed labs are abnormal. All other labs obtained during this visit were within normal range or not returned as of this dictation. CT soft tissue neck w IV contrast Final Result 1. Marked abnormal enlargement and enhancement of the left submandibular gland including a hypodense rim enhancing area possibly a submandibular gland abscess or extremely dilated submandibular gland duct containing a very large calcification. There is effacement of the left pharyngeal wall and left vallecula. 2. There is adenopathy adjacent to the left submandibular gland and midline submandibular adenopathy. MACRO: None Signed by: Tita Brennan 11/30/2023 10:37 PM Dictation workstation: [id number] CT soft tissue neck w IV contrast Final Result 1. Marked abnormal enlargement and enhancement of the left submandibular gland including a hypodense rim enhancing area possibly a submandibular gland abscess or extremely dilated submandibular gland duct containing a very large calcification. There is effacement of the left pharyngeal wall and left vallecula. 2. There is adenopathy adjacent to the left submandibular gland and midline submandibular adenopathy. MACRO: None Signed by: Tita Brennan 11/30/2023 10:37 PM Dictation workstation: [id number] ED COURSE/MEDICAL DECISION MAKING Medical Decision Making: Exam: A medically appropriate exam performed, outlined above, given the known history and presentation. History obtained from: Review of medical record nursing notes patient Social Determinants of Health considered during this visit: Takes care of himself at home PAST MEDICAL HISTORY/Chronic Conditions Affecting Care has no past medical history on file. CC/HPI Summary, Social Determinants of health, Records Reviewed, DDx, testing done/not done, ED Course, Reassessment, disposition considerations/shared decision making with patient, consults, disposition: Presents with swelling to the left neck recent diagnosis of SIALADENITIS Plan Toradol BMP CBC Versus lidocaine Normal saline Soft tissue neck with contrast 1. Marked abnormal enlargement and enhancement of the left submandibular gland including a hypodense rim enhancing area possibly a submandibular gland abscess or extremely dilated submandibular gland duct containing a very large calcification. There is effacement of the left pharyngeal wall and left vallecula. 2. There is adenopathy adjacent to the left submandibular gland and midline submandibular adenopathy. Strep Medical Decision Making/Differential Diagnosis: Differentials include not limited to abscess versus cervical adenopathy versus Sialadenitis versus strep. Versus peritonsillar abscess versus dental abscess Patient declines having the neck jawline massage. Review: White blood cell count 11.1 increased from initial presentation of around 8. Hemoglobin 12.9 Glucose 85 Electrolytes within normal limits BUN 14 Creatinine 1.1 Strep patient refused Patient presented with swelling to the left neck mass. No elevation white blood cell count. Treat anemia no signs of active bleeding. Electrolytes within normal limits normal renal function. CT abdomen neck showed abnormal enlargement and enhancement of the left submandibular gland including a hypodense rim-enhancing area possibly abscess or extremely dilated submandibular gland duct. There is a very large calcification also noted. Effacement of the left pharyngeal wall and left vallecula. Adenopathy also noted adjacent to the left submandibular gland and midline submandibular adenopathy. Airway is patent. Patient reported improvement plain with viscous lidocaine. Received IV antibiotics as well as fluids. Case was discussed with ENT by attending physician. She will be assuming care of patient for further evaluation treatment and disposition Based on patient clinical presentation history and symptoms consistent with submandibular gland abscess and lymphadenopathy unless otherwise noted below, none Patient seen and evaluated with attending physician Dr. Alves CONSULTS: None Diagnoses as of 11/30/232352 Submandibular lymphadenopathy Submandibular abscess This patient has remained hemodynamically stable during their ED course. Critical Care: none Counseling: The emergency provider has spoken with the patient and discussed today s results, in addition to providing specific details for the plan of care and counseling regarding the diagnosis and prognosis. Questions are answered at this time and they are agreeable with the plan. -- IMPRESSION AND DISPOSITION -- IMPRESSION 1. Submandibular lymphadenopathy 2. Submandibular abscess DISPOSITION Disposition: Disposition pending Patient condition is stable improved NOTE: This report was transcribed using voice recognition software. Every effort was made to ensure accuracy; however, inadvertent computerized dry cell tester errors may be present Jyothi Pisano APRN-[facility]ESIS 11/30/23 2035 Associated attestation - Brandy Bergeron MD - 12/01/2023 8:21 AM EDT THIS IS MY JB SUPERVISORY AND SHARED VISIT NOTE: I personally saw the patient and made/approved a substantive portion of the management plan for the visit including all aspects of the medical decision making. All diagnostic, treatment, and disposition decisions were made by me in conjunction with the JB as noted in the medical record. I take responsibility for the patient management. History: 43 y.o. male no chronic medical illnesses seen and evaluated in triage orders placed by attending physician presenting to the ED for Sialadenitis left side. Patient reports he was seen evaluated a week ago noticed a large stone that he could not get he has been massaging his count taking steroids with no improvement was told to come to the emergency department if not getting any better. He denies fever. Reports he is making saliva he has tried using the candies but did not think that that would work. So he is no longer using them. He believes he may have been on antibiotic but knows he was on some type of steroids. He denies cough congestion runny nose sore throat no abdominal pain nausea vomiting. He has a decayed tooth on the left side and missing tooth but states that this is not the cause of his symptoms today. Patient states he took 1600 mg of ibuprofen about 3 hours ago with no improvement of his pain. Exam: GENERAL APPEARANCE: Awake and alert. Patient sleeping upon entering room but awakens easily. Appears agitated but cooperative VITAL SIGNS: As per the nurses' triage record. Elevated blood pressure HEENT: Normocephalic, atraumatic. Extraocular muscles are intact. Pupils equal round and reactive to light. Conjunctiva are pink. Negative scleral icterus. Mucous membranes are moist. Tongue in the midline. Pharynx was without erythema or exudates, uvula midline missing tooth left lower jawline decayed. Able to open and shut the mouth with no difficulty. Airways patent. No sign Liquigen or peritonsillar abscess. NECK: Soft Nontender and supple, full gross ROM, no meningeal signs. No nuchal rigidity stridor or trismus noted. Trachea midline. Tenderness to the left neck mandibular area CHEST: Nontender to palpation. Clear to auscultation bilaterally. No rales, rhonchi, or wheezing. HEART: S1, S2. Regular rate and rhythm. No murmurs, gallops or rubs. Strong and equal pulses in the extremities. ABDOMEN: Soft, nontender, nondistended, positive bowel sounds, no palpable masses. MUSCULCSKELETAL: Full gross active range of motion. Ambulating on own with no acute difficulties NEUROLOGICAL: Awake, alert and oriented x 3. Power intact in the upper and lower extremities. Sensation is intact to light touch in the upper and lower extremities. IMMUNOLOGICAL: No lymphatic streaking noted DERM: No petechiae, rashes, or ecchymoses. Vitiligo MDM: 43-year-old male presenting with worsening left-sided facial pain despite already being on antibiotic and Medrol Dosepak. CT scan shows possible developing abscess, but no drainable fluid collection at this time. He was ordered clindamycin IV by the nurse practitioner and the case was discussed with Dr. Cummings from ENT. He states that the patient should get 3 doses of clindamycin IV and that he can be discharged home with follow-up at clinic for outpatient removal of the salivary stone. The patient feels very uncomfortable with this plan as he has already seen an ENT and believes that the current interventions have not been successful and will be admitted to the hospital as he will require 12 hours of IV antibiotics for observation and ENT consult. I independently interpreted the following study(s) CT and lab work which show continued sialoadenitis with developing abscess, but not meeting SIRS criteria. Not septic. I personally discussed the patient's management with the patient, ENT consult with Dr. Cummings and admitting hospitalist Dr. Borges, TRIAGE NOTE I saw the patient as the Clinician in Triage and performed a brief history and physical exam, established acuity, and ordered appropriate tests to develop basic plan of care. Patient will be seen by an JB, resident and/or physician who will independently evaluate the patient. Please see subsequent provider notes for further details and disposition. Brief HPI: In brief, Abiodun Mcdonnell is a 43 y.o. male that presents for evaluation of left-sided neck pain. The patient went to [facility] emergency department on Sunday because of some pain in the left side of his neck and in his left ear. He also complained of a sore throat. He had a negative strep test and was felt to have pain related to anterior cervical adenopathy. The following day he saw an oral surgeon who stated that the problem was an infection in his submandibular gland. He was started on an unknown antibiotic and possibly some steroids. He says that some imaging was done but he was nonspecific. Since Sunday, 4 days ago, the pain and swelling has gotten much worse. He is unable to swallow solids and has been swallowing only liquids. Denies any recent fevers. Focused Physical exam: Triage vitals remarkable for elevated blood pressure. The patient has no drooling or stridor or hoarseness and is handling secretions well. The left side of the tongue seems to be raised slightly but the pharynx appears unremarkable without erythema exudates or tonsillar or soft palate asymmetry. The patient has moderate swelling and tenderness to the left submandibular region. Both TMs appear unremarkable without erythema. Plan/MDM: Plan is for IV fluids, IV Toradol, labs and soft tissue CT neck. Please see subsequent provider note for further details and disposition Bobbi Smith D.O. 7:44 PM documented in this encounter [facility] Work Phone: 11-30-2023 Emergency department Triage note TRIAGE NOTE I saw the patient as the Clinician in Triage and performed a brief history and physical exam, established acuity, and ordered appropriate tests to develop basic plan of care. Patient will be seen by an JB, resident and/or physician who will independently evaluate the patient. Please see subsequent provider notes for further details and disposition. Brief HPI: In brief, Abiodun Mcdonnell is a 43 y.o. male that presents for evaluation of left-sided neck pain. The patient went to [facility] emergency department on Sunday because of some pain in the left side of his neck and in his left ear. He also complained of a sore throat. He had a negative strep test and was felt to have pain related to anterior cervical adenopathy. The following day he saw an oral surgeon who stated that the problem was an infection in his submandibular gland. He was started on an unknown antibiotic and possibly some steroids. He says that some imaging was done but he was nonspecific. Since Sunday, 4 days ago, the pain and swelling has gotten much worse. He is unable to swallow solids and has been swallowing only liquids. Denies any recent fevers. Focused Physical exam: Triage vitals remarkable for elevated blood pressure. The patient has no drooling or stridor or hoarseness and is handling secretions well. The left side of the tongue seems to be raised slightly but the pharynx appears unremarkable without erythema exudates or tonsillar or soft palate asymmetry. The patient has moderate swelling and tenderness to the left submandibular region. Both TMs appear unremarkable without erythema. Plan/MDM: Plan is for IV fluids, IV Toradol, labs and soft tissue CT neck. Please see subsequent provider note for further details and disposition Bobbi Smith D.O. 7:44 PM [facility] Work Phone: 11-30-2023 Physician Emergency department Note Department of Emergency Medicine ED Provider Note Admit Date/RoomTime: 11/30/2023 7:33 PM ED Room: [facility] History of Present Illness: Chief Complaint Patient presents with Swollen Glands Pt states he has seen a Dr for his swollen glands and was told it was his saliva glands. Pt states he was told if it gets worse to go to the ED. Abiodun Mcdonnell is a 43 y.o. male no chronic medical illnesses seen and evaluated in triage orders placed by attending physician presenting to the ED for Sialadenitis left side. Patient reports he was seen evaluated a week ago noticed a large stone that he could not get he has been massaging his count taking steroids with no improvement was told to come to the emergency department if not getting any better. He denies fever. Reports he is making saliva he has tried using the candies but did not think that that would work. So he is no longer using them. He believes he may have been on antibiotic but knows he was on some type of steroids. He denies cough congestion runny nose sore throat no abdominal pain nausea vomiting. He has a decayed tooth on the left side and missing tooth but states that this is not the cause of his symptoms today. Patient states he took 1600 mg of ibuprofen about 3 hours ago with no improvement of his pain. Review of Systems: Pertinent positives and negatives are stated within HPI, all other systems reviewed and are negative. PAST HISTORY Past Medical History: has no past medical history on file. Past Surgical History: has no past surgical history on file. Social History: Family History: family history is not on file.. Unless otherwise noted, family history is non contributory The patient s home medications have been reviewed. Allergies: Penicillins PHYSICAL EXAM GENERAL APPEARANCE: Awake and alert. Patient sleeping upon entering room but awakens easily. Appears agitated but cooperative VITAL SIGNS: As per the nurses' triage record. Elevated blood pressure HEENT: Normocephalic, atraumatic. Extraocular muscles are intact. Pupils equal round and reactive to light. Conjunctiva are pink. Negative scleral icterus. Mucous membranes are moist. Tongue in the midline. Pharynx was without erythema or exudates, uvula midline missing tooth left lower jawline decayed. Able to open and shut the mouth with no difficulty. Airways patent. No sign Liquigen or peritonsillar abscess. NECK: Soft Nontender and supple, full gross ROM, no meningeal signs. No nuchal rigidity stridor or trismus noted. Trachea midline. Tenderness to the left neck mandibular area CHEST: Nontender to palpation. Clear to auscultation bilaterally. No rales, rhonchi, or wheezing. HEART: S1, S2. Regular rate and rhythm. No murmurs, gallops or rubs. Strong and equal pulses in the extremities. ABDOMEN: Soft, nontender, nondistended, positive bowel sounds, no palpable masses. MUSCULCSKELETAL: Full gross active range of motion. Ambulating on own with no acute difficulties NEUROLOGICAL: Awake, alert and oriented x 3. Power intact in the upper and lower extremities. Sensation is intact to light touch in the upper and lower extremities. IMMUNOLOGICAL: No lymphatic streaking noted DERM: No petechiae, rashes, or ecchymoses. Vitiligo NURSING NOTES AND VITALS REVIEWED The nursing notes within the ED encounter and vital signs as below have been reviewed by myself BP (!) 124/98 (BP Location: Left arm, Patient Position: Sitting) Pulse 90 Temp 36.8 C (98.2 F) (Oral) Resp 16 Ht 1.778 m (5' 10) Wt 85 kg (187 lb 6.3 oz) SpO2 96% BMI 26.89 kg/m Oxygen Saturation Interpretation: 96% room air The patient s available past medical records and past encounters were reviewed. DIAGNOST IC RESULTS LABS: Labs Reviewed CBC WITH AUTO DIFFERENTIAL - Abnormal Result Value WBC 11.1 nRBC 0.0 RBC 4.67 Hemoglobin 12.9 (*) Hematocrit 39.9 (*) MCV 85 MCH 27.6 MCHC 32.3 RDW 13.5 Platelets 231 Neutrophils % 58.7 Immature Granulocytes %, Automated 0.3 Lymphocytes % 29.7 Monocytes % 10.1 Eosinophils % 0.8 Basophils % 0.4 Neutrophils Absolute 6.50 Immature Granulocytes Absolute, Automated 0.03 Lymphocytes Absolute 3.28 Monocytes Absolute 1.12 (*) Eosinophils Absolute 0.09 Basophils Absolute 0.04 BASIC METABOLIC PANEL - Normal Glucose 85 Sodium 137 Potassium 3.6 Chloride 101 Bicarbonate 26 Urea Nitrogen 14 Creatinine 1.10 eGFR 86 Calcium 9.1 Anion Gap 10 GROUP A STREPTOCOCCUS, PCR As interpreted by me, the above displayed labs are abnormal. All other labs obtained during this visit were within normal range or not returned as of this dictation. CT soft tissue neck w IV contrast Final Result 1. Marked abnormal enlargement and enhancement of the left submandibular gland including a hypodense rim enhancing area possibly a submandibular gland abscess or extremely dilated submandibular gland duct containing a very large calcification. There is effacement of the left pharyngeal wall and left vallecula. 2. There is adenopathy adjacent to the left submandibular gland and midline submandibular adenopathy. MACRO: None Signed by: Tita Brennan 11/30/2023 10:37 PM Dictation workstation: [id number] CT soft tissue neck w IV contrast Final Result 1. Marked abnormal enlargement and enhancement of the left submandibular gland including a hypodense rim enhancing area possibly a submandibular gland abscess or extremely dilated submandibular gland duct containing a very large calcification. There is effacement of the left pharyngeal wall and left vallecula. 2. There is adenopathy adjacent to the left submandibular gland and midline submandibular adenopathy. MACRO: None Signed by: Tita Brennan 11/30/2023 10:37 PM Dictation workstation: [id number] ED COURSE/MEDICAL DECISION MAKING Medical Decision Making: Exam: A medically appropriate exam performed, outlined above, given the known history and presentation. History obtained from: Review of medical record nursing notes patient Social Determinants of Health considered during this visit: Takes care of himself at home PAST MEDICAL HISTORY/Chronic Conditions Affecting Care has no past medical history on file. CC/HPI Summary, Social Determinants of health, Records Reviewed, DDx, testing done/not done, ED Course, Reassessment, disposition considerations/shared decision making with patient, consults, disposition: Presents with swelling to the left neck recent diagnosis of SIALADENITIS Plan Toradol BMP CBC Versus lidocaine Normal saline Soft tissue neck with contrast 1. Marked abnormal enlargement and enhancement of the left submandibular gland including a hypodense rim enhancing area possibly a submandibular gland abscess or extremely dilated submandibular gland duct containing a very large calcification. There is effacement of the left pharyngeal wall and left vallecula. 2. There is adenopathy adjacent to the left submandibular gland and midline submandibular adenopathy. Strep Medical Decision Making/Differential Diagnosis: Differentials include not limited to abscess versus cervical adenopathy versus Sialadenitis versus strep. Versus peritonsillar abscess versus dental abscess Patient declines having the neck jawline massage. Review: White blood cell count 11.1 increased from initial presentation of around 8. Hemoglobin 12.9 Glucose 85 Electrolytes within normal limits BUN 14 Creatinine 1.1 Strep patient refused Patient presented with swelling to the left neck mass. No elevation white blood cell count. Treat anemia no signs of active bleeding. Electrolytes within normal limits normal renal function. CT abdomen neck showed abnormal enlargement and enhancement of the left submandibular gland including a hypodense rim-enhancing area possibly abscess or extremely dilated submandibular gland duct. There is a very large calcification also noted. Effacement of the left pharyngeal wall and left vallecula. Adenopathy also noted adjacent to the left submandibular gland and midline submandibular adenopathy. Airway is patent. Patient reported improvement plain with viscous lidocaine. Received IV antibiotics as well as fluids. Case was discussed with ENT by attending physician. She will be assuming care of patient for further evaluation treatment and disposition Based on patient clinical presentation history and symptoms consistent with submandibular gland abscess and lymphadenopathy unless otherwise noted below, none Patient seen and evaluated with attending physician Dr. Alves CONSULTS: None Diagnoses as of 11/30/232352 Submandibular lymphadenopathy Submandibular abscess This patient has remained hemodynamically stable during their ED course. Critical Care: none Counseling: The emergency provider has spoken with the patient and discussed today s results, in addition to providing specific details for the plan of care and counseling regarding the diagnosis and prognosis. Questions are answered at this time and they are agreeable with the plan. -- IMPRESSION AND DISPOSITION -- IMPRESSION 1. Submandibular lymphadenopathy 2. Submandibular abscess DISPOSITION Disposition: Disposition pending Patient condition is stable improved NOTE: This report was transcribed using voice recognition software. Every effort was made to ensure accuracy; however, inadvertent computerized dry cell tester errors may be present Jyothi Pisano APRN-GENESIS 11/30/23 651 Associated attestation - Brandy Bergeron MD - 12/01/2023 8:21 AM EDT THIS IS MY JB SUPERVISORY AND SHARED VISIT NOTE: I personally saw the patient and made/approved a substantive portion of the management plan for the visit including all aspects of the medical decision making. All diagnostic, treatment, and disposition decisions were made by me in conjunction with the JB as noted in the medical record. I take responsibility for the patient management. History: 43 y.o. male no chronic medical illnesses seen and evaluated in triage orders placed by attending physician presenting to the ED for Sialadenitis left side. Patient reports he was seen evaluated a week ago noticed a large stone that he could not get he has been massaging his count taking steroids with no improvement was told to come to the emergency department if not getting any better. He denies fever. Reports he is making saliva he has tried using the candies but did not think that that would work. So he is no longer using them. He believes he may have been on antibiotic but knows he was on some type of steroids. He denies cough congestion runny nose sore throat no abdominal pain nausea vomiting. He has a decayed tooth on the left side and missing tooth but states that this is not the cause of his symptoms today. Patient states he took 1600 mg of ibuprofen about 3 hours ago with no improvement of his pain. Exam: GENERAL APPEARANCE: Awake and alert. Patient sleeping upon entering room but awakens easily. Appears agitated but cooperative VITAL SIGNS: As per the nurses' triage record. Elevated blood pressure HEENT: Normocephalic, atraumatic. Extraocular muscles are intact. Pupils equal round and reactive to light. Conjunctiva are pink. Negative scleral icterus. Mucous membranes are moist. Tongue in the midline. Pharynx was without erythema or exudates, uvula midline missing tooth left lower jawline decayed. Able to open and shut the mouth with no difficulty. Airways patent. No sign Liquigen or peritonsillar abscess. NECK: Soft Nontender and supple, full gross ROM, no meningeal signs. No nuchal rigidity stridor or trismus noted. Trachea midline. Tenderness to the left neck mandibular area CHEST: Nontender to palpation. Clear to auscultation bilaterally. No rales, rhonchi, or wheezing. HEART: S1, S2. Regular rate and rhythm. No murmurs, gallops or rubs. Strong and equal pulses in the extremities. ABDOMEN: Soft, nontender, nondistended, positive bowel sounds, no palpable masses. MUSCULCSKELETAL: Full gross active range of motion. Ambulating on own with no acute difficulties NEUROLOGICAL: Awake, alert and oriented x 3. Power intact in the upper and lower extremities. Sensation is intact to light touch in the upper and lower extremities. IMMUNOLOGICAL: No lymphatic streaking noted DERM: No petechiae, rashes, or ecchymoses. Vitiligo MDM: 43-year-old male presenting with worsening left-sided facial pain despite already being on antibiotic and Medrol Dosepak. CT scan shows possible developing abscess, but no drainable fluid collection at this time. He was ordered clindamycin IV by the nurse practitioner and the case was discussed with Dr. Cummings from ENT. He states that the patient should get 3 doses of clindamycin IV and that he can be discharged home with follow-up at clinic for outpatient removal of the salivary stone. The patient feels very uncomfortable with this plan as he has already seen an ENT and believes that the current interventions have not been successful and will be admitted to the hospital as he will require 12 hours of IV antibiotics for observation and ENT consult. I independently interpreted the following study(s) CT and lab work which show continued sialoadenitis with developing abscess, but not meeting SIRS criteria. Not septic. I personally discussed the patient's management with the patient, ENT consult with Dr. Cummings and admitting hospitalist Dr. Borges, [facility] Work Phone: Evaluation note Diagnosis Sialoadenitis of submandibular gland- Primary Submandibular lymphadenopathy Submandibular abscess Acute on chronic sialoadenitis Sialoadenitis of submandibular gland Submandibular abscess Submandibular lymphadenopathy documented in this encounter [facility] Work Phone: Evaluation note* Diagnosis Sialoadenitis of submandibular gland- Primary Sialolithiasis of submandibular gland documented in this encounter [facility] Work Phone: Evaluation note* Diagnosis Pre-op testing Unspecified pre-operative examination Salivary stone Sialolithiasis Salivary stone- Primary Sialolithiasis Salivary stone Sialolithiasis documented in this encounter [facility] Work Phone: Evaluation note* Diagnosis Salivary stone- Primary Sialolithiasis Sialoadenitis of submandibular gland documented in this encounter [facility] Work Phone: Instructions Date Instruction Additional Infor mation Impression/Plan Related to Myopi a, bilateral Impression/Plan Related to Regul ar astigmatism, bilateral Date Instruction Additional Infor mation No information Date Instruction Additional Infor mation Giving encouragement to exercise Related to Body mass index (BMI) 28.0-28.9, adult Lifestyle education regarding di et Related to Body mass index (BMI) 28.0-28.9, adult Impression/Plan Related to Myopi a, bilateral Impression/Plan Related to Regul ar astigmatism, bilateral Assessments Type Assessment Date assessment Encounter for adult annual physi silvestre exam w/ abnormal finding assessment Back pain at L4-L5 level 2017 assessment Smoking addiction assessment Encounter for immunization May- assessment Body mass index (BMI) 28.0-28.9, adult assessment GERD without esophagitis 2017 assessment Vitiligo Type Assessment Date assessment Myopia, bilateral impression Myopia, bilateral: H52.13 assessment Regular astigmatism, bilateral A impression Regular astigmatism, bilateral: H52.223 Summary Purpose Family History No Family History Records Found Advance Directives Latest Code Status on File Code Status Date Activated Date Inactivated Comments Full Code 12/01/2023 12:32 AM Question Answer Comments Plan of Care: Code Status Discussion Completed Decision Maker: Patient No Advanced Directives Records Found Additional Source Comments (unrecognized sect ion and content) No Status Records FoundNo Status Records FoundNo Status Records FoundNo Status Records FoundNo Status Records FoundNo Status Records FoundNo Status Records FoundNo Status Records FoundNo Status Records FoundNo Status Records FoundNo Status Records FoundNo Status Records Found INFORMATION SOURCE (unrecogn ized section and content) DATE CREATED AUTHOR 03/12/2018 [facility] DATE CREATED AUTHOR AUTHOR'S ORGANIZ ATION 07/12/2018 [facility] DATE CREATED AUTHOR AUTHOR'S ORGANIZ ATION 12/02/2018 [facility] DATE CREATED AUTHOR AUTHOR'S ORGANIZ ATION 10/10/2019 [facility] DATE CREATED AUTHOR AUTHOR'S ORGANIZ ATION 10/15/2019 [facility] DATE CREATED AUTHOR AUTHOR'S ORGANIZ ATION 10/09/2020 [facility] DATE CREATED AUTHOR AUTHOR'S ORGANIZ ATION 04/29/2022 [facility] DATE CREATED AUTHOR AUTHOR'S ORGANIZ ATION 12/06/2023 [facility] DATE CREATED AUTHOR AUTHOR'S ORGANIZ ATION 12/07/2023 [facility] DATE CREATED AUTHOR AUTHOR'S ORGANIZ ATION 12/14/2023 [facility] DATE CREATED AUTHOR AUTHOR'S ORGANIZ ATION 12/28/2023 [facility] DATE CREATED AUTHOR AUTHOR'S ORGANIZ ATION 03/03/2024 [facility] Reason for Visit (unrecogniz ed section and content) Reason Comments Swollen Glands Pt states he has see n arpan Ryan for his swollen glands and was told it was his saliva glands. Pt states he was told if it gets worse to go to the ED. Reason Comments Follow-up Swollen gland subman dibular Specialty Diagnoses / Procedures Referred By Luis Daniel mason Referred To Contact Diagnoses Salivary stone Salivary stone [K11.5] Procedures DE SIALOT SUBMNDBLR SUBLNGL/PRTD UNCOMP INTRAORAL [place] [id number] Department of Otolaryngology, [place] [address] [facility] [place] [address] [place] [address] Referral ID Status Reason Start Date Expiration Date Visits Re quested Visits Authorized [id number] 1 1 Scheduled Active and Recently Administ ered Medications (unrecognized section and content) Medication Order 11/29/2023 11/30/2023 12/01/2023 clindamycin (Cleocin) 600 mg in dextrose 5% water 50 mL (CANCELED) 600 mg, intravenous, at 100 mL/hr, Administer over 30 Minutes, Every 12 hours, First dose on 12/01/23 at 0500, For 2 doses, premix bag, Dosing of this medication varies based on severity of illness. Does this patient have sepsis or concern for sepsis (probable or documented infection plus systemic manifestations of infection)? No, Suspected Indication (Select all that apply): Cellulitis, Skin and Soft Tissue, Type of Therapy: Empiric 0519 (New Bag - Provider: Kaley Hernandez RN)0549 (Stopped - Provider: Kaley Hernandez RN) clindamycin (Cleocin) 600 mg in dextrose 5% water 50 mL 600 mg, intravenous, at 100 mL/hr, Administer over 30 Minutes, Every 6 hours, First dose (after last modification) on 12/01/23 at 1130, For 2 doses, premix bag, Dosing of this medication varies based on severity of illness. Does this patient have sepsis or concern for sepsis (probable or documented infection plus systemic manifestations of infection)? No, Suspected Indication (Select all that apply): Cellulitis, Skin and Soft Tissue, Type of Therapy: Empiric 1130 (Not Given - Provider: Irene Melissa RN - Reason: Patient/family refused - Comment: pt philip be DC)1730 (Due) clindamycin in D5W (Cleocin) IVPB 900 mg (COMPLETED) 900 mg, intravenous, at 50 mL/hr, Administer over 60 Minutes, Once, On Sun11/30/23 at 203, For 1 dose, premix bag, Dosing of this medication varies based on severity of illness. Does this patient have sepsis or concern for sepsis (probable or documented infection plus systemic manifestations of infection)? No, Suspected Indication (Select all that apply): Sinusitis/Other ENT, Type of Therapy: Empiric 2034 (New Bag - Provider: Jenn Jackson RN)2134 (Stopped - Provider: Jenn Jackson RN) dexAMETHasone (Decadron) injection 10 mg 10 mg, intravenous, Once, On 12/01/23 at 1445, For 1 dose 1445 (Due) dexAMETHasone (Decadron) injection 10 mg (COMPLETED) 10 mg, intravenous, Once, On 12/01/23 at 0025, For 1 dose 0101 (Given - Provid er: Billy Acosta RN) iohexol (OMNIPaque) 350 mg iodine/mL solution 75 mL (COMPLETED) 75 mL, intravenous, Once in imaging, Starting on Sun11/30/23 at 2122, For 1 dose 2122 (Given - Provider: Wale Treviño) ketorolac (Toradol) injection 15 mg (COMPLETED) 15 mg, intravenous, Once, On Sun11/30/23 at 1945, For 1 dose 2000 (Given - Provider: Jenn Jackson RN)2003 (Not Given - Provider: Jenn Jackson RN - Reason: Other - Comment: 1600ibu @ 1800) lidocaine (Xylocaine) 2 % mouth solution 1.25 mL (COMPLETED) 1.25 mL, Swish & Spit, Once, On Sun11/30/23 at 2024, For 1 dose 2030 (Given - Provider: Jenn Jackson RN) pantoprazole (ProtoNix) injection 40 mg 40 mg, intravenous, Daily, First dose on 12/01/23 at 0900, For 3 doses, Reconstitute with 10 mL sodium chloride 0.9% for injection. Push over 2 minutes. Reconstitute with 10 mL sodium chloride 0.9% for injection. Push over 2 minutes. 0934 (Given - Provid er: Gifty Durant) predniSONE (Deltasone) tablet 40 mg 40 mg, oral, Daily, First dose on 12/01/23 at 0900, For 7 doses 1005 (Given - Provid er: Irene Melissa RN - Comment: patiernt request) sodium chloride 0.9 % bolus 1,000 mL (COMPLETED) 1,000 mL, intravenous, at 1,000 mL/hr, Administer over 1 Hours, Once, On Sun11/30/23 at 1945, For 1 dose 2000 (New Bag - Provider: Jenn Jackson RN)2100 (Stopped - Provider: Jenn Jackson RN) Continuous Medication Order 11/29/2023 11/30/2023 12/01/2023 sodium chloride 0.9% infusion 100 mL/hr, intravenous, Continuous, Starting on 12/01/23 at 0035, For 12 hours 0101 (New Bag - Prov ider: Billy Acosta RN)0934 (New Bag - Provider: Gifty Durant) PRN Medication Order 11/29/2023 11/30/2023 12/01/2023 acetaminophen (Tylenol) oral liquid 650 mg(Linked Group 1) 650 mg, nasogastric tube, Every 4 hours PRN, fever (temp greater than 38.0 C), greater than or equal to 38 C, Starting on 12/01/23 at 0031 acetaminophen (Tylenol) suppository 650 mg(Linked Group 1) 650 mg, rectal, Every 4 hours PRN, fever (temp greater than 38.0 C), greater than or equal to 38 C, Starting on 12/01/23 at 0031, If ordered PRN for pain, nurse is permitted to administer this medication for higher pain scores based on patient preference? Yes acetaminophen (Tylenol) tablet 650 mg(Linked Group 1) 650 mg, oral, Every 4 hours PRN, fever (temp greater than 38.0 C), greater than or equal to 38 C, Starting on 12/01/23 at 0031, If ordered PRN for pain, nurse is permitted to administer this medication for higher pain scores based on patient preference? Yes benzocaine-menthol (Cepastat Sore Throat) 15-3.6 mg lozenge 1 lozenge 1 lozenge, Mouth/Throat, Every 2 hour PRN, sore throat, Starting on 12/01/23 at 0032 dextromethorphan-guaifenesin (Robitussin DM) 10-100 mg/5 mL oral liquid 5 mL 5 mL, oral, Every 4 hours PRN, cough, Starting on 12/01/23 at 0032 guaiFENesin (Mucinex) 12 hr tablet 600 mg 600 mg, oral, Every 12 hours PRN, congestion, Starting on 12/01/23 at 0032, Administer with plenty of fluids to ensure proper action. Do not crush, chew, or split. HYDROcodone-acetaminophen ([place]ora) 5-325 mg per tablet 1 tablet 1 tablet, oral, Every 6 hours PRN, pain severe (7-10), first line, pain breakthrough, Starting on 12/01/23 at 0036, For 3 doses, If ordered PRN for pain, nurse is permitted to administer this medication for higher pain scores based on patient preference? Yes ketorolac (Toradol) injection 15 mg 15 mg, intravenous, Every 8 hours PRN, pain moderate (4-6), first line, pain severe (7-10), first line, pain mild (1-3), first line, pain mild (1-3), second line, pain moderate (4-6), second line, pain severe (7-10), second line, Starting on 12/01/23 at 0035, For 3 doses 0520 (Given - Provid er: Kaley Hernandez RN) ondansetron (Zofran) injection 4 mg(Linked Group 2) 4 mg, intravenous, Every 8 hours PRN, nausea/vomiting, first line, Starting on 12/01/23 at 0031, 1st Line. Give IV if patient is unable to take orally. If inadequate response within 60 minutes, proceed to next-line agent for same PRN reason or contact provider if no further options ordered. When administering via IV Push, administer over 3-5 minutes. 0205 (Given - Provid er: Kaley Hernandez RN) ondansetron ODT (Zofran-ODT) disintegrating tablet 4 mg(Linked Group 2) 4 mg, oral, Every 8 hours PRN, nausea/vomiting, first line, Starting on 12/01/23 at 0031, 1st Line. Use oral route first, if possible. If inadequate response within 60 minutes, proceed to next-line agent for same PRN reason or contact provider if no further options ordered. 0205 (See Alternativ e - Provider: Kaley Hernandez RN) polyethylene glycol (Glycolax, Miralax) packet 17 g 17 g, oral, Daily PRN, constipation, Starting on 12/01/23 at 0032, Bowel Regimen - for prevention of constipation. Linked Groups Order Group 1: acetaminophen (Tylenol) tablet 650 mgJump to med 650 mg, oral, Every 4 hours PRN, fever (temp greater than 38.0 C), greater than or equal to 38 C, Starting on 12/01/23 at 0031
If ordered PRN for pain, nurse is permitted to administer this medication for higher pain scores based on patient preference? Yes Or acetaminophen (Tylenol) oral liquid 650 mgJump to med 650 mg, nasogastric tube, Every 4 hours PRN, fever (temp greater than 38.0 C), greater than or equal to 38 C, Starting on 12/01/23 at 0031 Or acetaminophen (Tylenol) suppository 650 mgJump to med 650 mg, rectal, Every 4 hours PRN, fever (temp greater than 38.0 C), greater than or equal to 38 C, Starting on 12/01/23 at 0031
If ordered PRN for pain, nurse is permitted to administer this medication for higher pain scores based on patient preference? Yes Group 2: ondansetron ODT (Zofran-ODT) disintegrating tablet 4 mgJump to med 4 mg, oral, Every 8 hours PRN, nausea/vomiting, first line, Starting on 12/01/23 at 0031
1st Line. Use oral route first, if possible. If inadequate response within 60 minutes, proceed to next-line agent for same PRN reason or contact provider if no further options ordered.
Or ondansetron (Zofran) injection 4 mgJump to med 4 mg, intravenous, Every 8 hours PRN, nausea/vomiting, first line, Starting on 12/01/23 at 0031
1st Line. Give IV if patient is unable to take orally. If inadequate response within 60 minutes, proceed to next-line agent for same PRN reason or contact provider if no further options ordered. When administering via IV Push, administer over 3-5 minutes.
Scheduled Medication Order 12/11/2023 12/12/2023 12/13/2023 albuterol 2.5 mg /3 mL (0.083 %) nebulizer solution 2.5 mg 2.5 mg, nebulization, Once, On Yenny 12/13/23 at 0915, For 1 dose, Recovery (only) 914 (Due) lidocaine (Xylocaine) 10 mg/mL (1 %) injection 1 mg 1 mg (0.1 mL), subcutaneous, Once, On Yenny 12/13/23 at 0915, For 1 dose, Recovery (only), To be used for IV insertion ONLY 914 (Due) Continuous Medication Order 12/11/2023 12/12/2023 12/13/2023 lactated Ringer's infusion 100 mL/hr, intravenous, Continuous, Starting on Yenny 12/13/23 at 0915, Recovery (only) 0920 (New Bag - Prov ider: Alycia Beth RN) PRN Medication Order 12/11/2023 12/12/2023 12/13/2023 HYDROmorphone (Dilaudid) injection 0.2 mg 0.2 mg, intravenous, Every 5 min PRN, pain moderate (4-6), first line, Starting on Yenny 12/13/23 at 0854, Recovery (only), Max total of 4 mg regardless of dose. HYDROmorphone (Dilaudid) injection 0.5 mg 0.5 mg, intravenous, Every 5 min PRN, pain severe (7-10), first line, Starting on Yenny 12/13/23 at 0854, Recovery (only), Max total of 4 mg regardless of dose. 0931 (Given - Provid er: Alycia Beth RN) labetaloL (Normodyne,Trandate) injection 5 mg 5 mg, intravenous, Administer over 1 Minutes, Once as needed, systolic blood pressure greater than 180 mmHg, dystolic blood pressure greater than 100 mmHg and heart rate greater than 60 BPM, Starting on Yenny 12/13/23 at 0854, For 1 dose, Recovery (only) ondansetron (Zofran) injection 4 mg 4 mg, intravenous, Once as needed, nausea/vomiting, first line, Starting on Yenny 12/13/23 at 0854, For 1 dose, Recovery (only), When administering via IV Push, administer over 3-5 minutes. oxyCODONE (Roxicodone) immediate release tablet 5 mg 5 mg, oral, Every 6 hours PRN, pain mild (1-3), first line, Starting on Yenny 12/13/23 at 1024, Recovery (only), If ordered PRN for pain, nurse is permitted to administer this medication for higher pain scores based on patient preference? Yes 1032 (Given - Provid er: Alycia Beth RN) oxygen (O2) therapy inhalation, Continuous PRN - O2/gases, other, Starting on Yenny 12/13/23 at 0854, Recovery (only), Device: Simple Face Mask, Rate in Liters per minute: 5 LPM, Keep O2 Sat Above: 94% 0920 (Start - Provid er: Alycia Beth RN)0930 (Rate/Dose Change - Provider: Alycia Beth RN)1015 (Stopped - Provider: Alycia Beth RN) promethazine (Phenergan) 6.25 mg in sodium chloride 0.9% 50 mL IV 6.25 mg, intravenous, Administer over 15 Minutes, Once as needed, Nausea/vomiting, second line, Starting on Yenny 12/13/23 at 0854, For 1 dose, Recovery (only) sodium chloride 0.9 % irrigation solution (CANCELED) As needed, Starting on Yenny 12/13/23 at 0757, Intraprocedure 0757 (Given - Provid er: Keyana Amezcua MD - Comment: intra-oral PRN irrigation) Care Teams (unrecognized sec tion and content) 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 This clinical summary was aggregated from multiple sources. Caution should be exercised in using it in the provision of clinical care. This summary normalizes information from multiple sources, and as a consequence, information in this document may materially change the coding, format and clinical context of patient data. In addition, data may be omitted in some cases. CLINICAL DECISIONS SHOULD BE BASED ON THE PRIMARY CLINICAL RECORDS. [facility] provides no warranty or guarantee of the accuracy or completeness of information in this document.
--- OUTSIDE RECORDS SUMMARY | 2025-04-27 07:15 | XMS RPT_ITS | CCD ---
Author Organization [facility] Care Team Providers Care Playback Operator Name Role Phone Doroghazi DMD, Alejandra Unavailable Unavailab le Douglas OD, Nancy Unavailable Unavailable Doroghazi DMD, Alejandra Unavailable Unavailab le Ondobo DATA BASE ADMINISTRATOR, Crow Unavailable Unavailable Doroghazi DMD, Alejandra Unavailable Unavailab le Douglas OD, Nancy Unavailable Unavailable Doroghazi DMD, Alejandra Unavailable Unavailab le Ondobo DATA BASE ADMINISTRATOR, Crow Unavailable Unavailable Wilfrido Beth Attending Unavailab [...] sources) penicillin; Translations: [PENICILLIN] drug allergy 8 [facility] (11 sources) Penicillins; Translations: [PENICILLINS] Propensity to adverse reactions to drug (disorder) 8 Shortness of breath [facility] Repository (2 sources) traMADol; Translations: [TRAMADOL] Drug Allergy [address] [facility] Other [place] Repository Medications Current Medications Medication Drug Class(es) Dates Sig (Normalized) Sig (Original) Acetaminophen (1 source) Start: 12-01-2023 take 1 tablet by mouth every four hours as needed acetaminophen (Tylenol) tablet 650 mg acetaminophen 325 mg / HYDROcodone bitartrate 5 mg oral tablet (1 source) Opioid Agonist Start: 12-01-2023 take 1 tablet by mouth every six hours as needed HYDROcodone-acetami nophen ([place]) 5-325 mg per tablet 1 tablet acetaminophen [...] 20 mg/ml oral solution (1 source) Uncompetitive O-lqxpko-F-aspartate Receptor Antagonist, Sigma-1 Agonist Start: 12-01-2023 take [...] (ProtoNix) injection 40 mg polyethylene glycol 3350 06842 mg powder for oral solution (1 source) [...] I agree with the above plan. -- [facility] General Surgery CONSULTATION Reason for Consult: external thrombosed hemorrhoid History of Present Illness: Leif Mcdonnell is a 43 y.o. male presenting with an external thrombosed hemorrhoid. Patient reports he first noticed painful mass near anal sphincter around 3 days ago. Patient states that mass initially developed after bowel movement following eating burkinan food. Patient reports he had straining with a bowel movement. He initially though the mass was an abscess and utilized warm compresses with minimal symptomatic relief. Patient denies rectal bleeding and prior hemorrhoids. Pt had his external hemorrhoid lanced at bedside yesterday, 03/01/2024, by general surgery at [facility] ED. Pt presented again today with worsening [...] nursing note reviewed. Exam conducted with a restorative care technician present. Constitutional: General: He is not in [...] results fo (more content not included)... Normal [facility] EDNURSon 03-02-2024 EDNURS Patient here yesterd ay for hemorrhoids. Patient is stating increase pain and unable to sleep. Patient further states the guaze needs to be changed. Normal [facility] EDPROVon 03-02-2024 EDPROV ------ -- Attestation signed by Sam Brandt DO at 03/02/2024 2:16 PM 2022 Emergency Medicine Coding Guide from [address] on 03/02/2024 All calculations should be rechecked [...] denies any other symptoms at this time. [place] Coma Scale Score: 15 Patient History No [...] nursing note reviewed. Exam conducted with a restorative care technician present. Constitutional: General: He is not in [...] 10:58 AM. (more content not included)... Normal [facility] CONSULTon 03-01-2024 CONSULT Reason For Consult External hemorrhoid Referring Provider: Dr. Regan History Of Present Illness Leif Mcdonnell is a 43 y.o. male presenting with hemorrhoid. Patient reports he first noticed painful mass near anal sphincter approximately 2 days ago. Patient states that mass initially developed after bowel movement following eating burkinan food. Patient reports he did strain with [...] Dr. Moncada, colorectal surgeon, further recommendations pending. [facility] EDNURSon 03-01-2024 EDNURS Mode of arrival (squ ad #, walk in, police, etc): Private vehicle Chief complaint(s): Abscess - delmy area Arrival Note (brief scenario, treatment CYCLE SPECIALIST, etc): Patient came to the ED with complaints of a boil/abscess in the delmy area, and was hoping to get it lanced / taken care of Patient states that theres constant pain even while sitting. Patient noticed it yesterday, but was awoken form sleep tonight with extreme pain and came to the ED. No past medical history on file. [facility] EDPROVon 03-01-2024 EDPROV HPI Chief Complaint Patient [...] IV drug use. History provided by: Patient [place] Coma Scale Score: 15 Patient History History [...] nursing note reviewed. Exam conducted with a restorative care technician present. Constitutional: General: He is not in [...] guarding or rebound. Genitourinary: Comments: MS for [facility] present as restorative care technician. Patient with thrombosed hemorrhoid no evidence of [...] of manage (more content not included)... Normal [facility] ED NOTEon 12-26-2023 ED NOTE HNO ID: [id number] Author: JC REVELES RN Service: ? Author Type: Registered Nurse Type: ED Notes Filed: 12/26/2023 21:24 Note Text: Patient dicsharged to home. Discharge instructions, medications, and follow up care reviewed, patient verbalized understanding. [facility] ED NOTE HNO ID: [id number] Author: ANTHONY OLIVER RN Service: ? Author [...] Pt AANDOx3 and ambulatory at this time. [facility] ED PROV NOTEon 12-26-2023 ED PROV NOTE HNO ID: [id number] Author: LORETO BEDOLLA PA-C Service: ? Author Type: Physician Filtration Supervisor Type: ED Provider Notes Filed: 12/26/2023 22:23 [...] all questions. SIGNATURE: PAULA Preston RYAN 12/26/232222 [facility] Surgical pathology studyon 0 12-13-2023 Surgical pathology study Pathology report.total SEE COMMENT Surgical Pathology Case: [id number] Authorizing Provider: Keyana Amezcua MD Collected: 12/13/2023 0843 Ordering Location: [facility] Received: 12/13/2023 1932 [facility] OR Pathologist: Uche Wall MD Specimen: CALCULUS, [...] only. No sections are submitted. SMS/RCC Normal [facility] Comment on above: Order Comment: Pre-o p diagnosis: Salivary stone [K11.5] Basic metabolic 2000 panelon 12-01-2023 Anion gap [Moles/Vol] 9 mmol/L Normal <=19 [facility] Comment on above: Performed By: #### 2 4321-2 #### NISA Reis ([id number]) [facility] ([facility]) [address] [place] [address] Calcium [Mass/Vol] 8.8 mg/dL Normal 8.5-10.4 [facility] Comment on above: Performed By: #### 2 4321-2 #### NISA Reis ([id number]) [facility] ([facility]) [address] [place] [address] Chloride [Moles/Vol] 106 mmol/L Normal 97-107 [facility] Comment on above: Performed By: #### 2 4321-2 #### NISA Reis ([id number]) [facility] ([facility]) [address] [place] [address] CO2 [Moles/Vol] 24 mmol/L Normal 24-31 [facility] Comment on above: Performed By: #### 2 4321-2 #### NISA Reis ([id number]) [facility] ([facility]) [address] [place] [address] Creatinine [Mass/Vol] 0.90 mg/dL Normal 0.40-1.60 [facility] Comment on above: Performed By: #### 2 432-2 #### NISA Reis ([id number]) [facility] ([facility]) [address] [place] [address] GFR/1.73 sq M.predicted MDRD (S/P/Bld) [Vol rate/Area] mL/min/{1.73_m2} Normal >60 [facility] Comment on above: Result Comment: Calc ulations of estimated GFR are performed using the 2020 CKD-EPI Study Refit equation without the race variable for the IDMS-Traceable creatinine methods. https://jasn.asnjournals.org/content/early//ASN.6896684 988 Performed By: #### 2 4321-2 #### NISA Reis ([id number]) [facility] ([facility]) [address] [place] [address] Glucose [Mass/Vol] 103 mg/dL High 65-99 [facility] Comment on above: Performed By: #### 2 4321-2 #### NISA Reis ([id number]) [facility] ([facility]) [address] [place] [address] Potassium [Moles/Vol] 4.1 mmol/L Normal 3.4-5.1 [facility] Comment on above: Performed By: #### 2 4321-2 #### NISA Reis ([id number]) [facility] ([facility]) [address] [place] [address] Sodium [Moles/Vol] 139 mmol/L Normal 133-145 [facility] Comment on above: Performed By: #### 2 4321-2 #### NISA Reis ([id number]) [facility] ([facility]) [address] [place] [address] Urea nitrogen [Mass/Vol] 12 mg/dL Normal 8-25 [facility] Comment on above: Performed By: #### 2 4321-2 #### NISA Reis ([id number]) [facility] ([facility]) [address] [place] [address] Anion gap [Moles/Vol] 9 mmol/L NINF - 19 mmol/L [facility] Calcium [Mass/Vol] 8.8 mg/dL 8.5 - 10. 4 mg/dL [facility] Chloride [Moles/Vol] 106 mmol/L 97 - 10 7 mmol/L [facility] CO2 [Moles/Vol] 24 mmol/L 24 - 31 mmol/L [facility] Creatinine [Mass/Vol] 0.90 mg/dL 0.40 - 1.60 mg/dL [facility] eGFR - PINF [facility] Comment on above: Calculations of lee mated GFR are performed using the 2020 CKD-EPI Study Refit equation without the race variable for the IDMS-Traceable creatinine methods. https://jasn.asnjournals.org/content//ASN.1183977 988 Glucose [Mass/Vol] 103 mg/dL High 65 - 99 mg/dL [facility] Interpretation and review of laboratory results Abnormal [facility] Potassium [Moles/Vol] 4.1 mmol/L 3.4 - 5.1 mmol/L [facility] Sodium [Moles/Vol] 139 mmol/L 133 - 145 mmol/L [facility] Urea nitrogen [Mass/Vol] 12 mg/dL 8 - 25 mg/dL [facility] CBC panel Auto (Bld)on 11-30 Erythrocyte distribution width (RBC) [Ratio] 13.5 % Normal 11.5-14.5 [facility] Comment on above: Performed By: #### 5 8410-2 #### NISA Reis ([id number]) [facility] ([facility]) [address] [place] [address] Hematocrit (Bld) [Volume fraction] 42.5 % Normal 41.0-52.0 [facility] Comment on above: Performed By: #### 5 8410-2 #### NISA Reis ([id number]) [facility] ([facility]) [address] [place] [address] Hemoglobin (Bld) [Mass/Vol] 13.6 g/dL Normal 13.5-17.5 [facility] Comment on above: Performed By: #### 5 8410-2 #### NISA Reis ([id number]) [facility] ([facility]) [address] [place] [address] MCH (RBC) [Entitic mass] 27.4 pg Normal 26.0-34.0 [facility] Comment on above: Performed By: #### 5 8410-2 #### NISA Reis ([id number]) [facility] ([facility]) [address] [place] [address] MCHC (RBC) [Mass/Vol] 32.0 g/dL Normal 32.0-36.0 [facility] Comment on above: Performed By: #### 5 8410-2 #### NISA Reis ([id number]) [facility] ([facility]) [address] [place] [address] MCV (RBC) [Entitic vol] 86 fL Normal 80-100 [facility] Comment on above: Performed By: #### 5 8410-2 #### NISA Reis ([id number]) [facility] ([facility]) [address] [place] [address] Nucleated RBC/100 WBC (Bld) [Ratio] 0.0 /100 WBCs Normal 0.0-0.0 [facility] Comment on above: Performed By: #### 5 8410-2 #### NISA Reis ([id number]) [facility] ([facility]) [address] [place] [address] Platelets (Bld) [#/Vol] 245 x10*3/uL Normal 150-450 [facility] Comment on above: Performed By: #### 5 8410-2 #### NISA Reis ([id number]) [facility] ([facility]) [address] [place] [address] RBC (Bld) [#/Vol] 4.96 x10*6/uL Normal 4.50-5.90 [facility] Comment on above: Performed By: #### 5 8410-2 #### NISA Reis ([id number]) [facility] ([facility]) [address] [place] [address] WBC (Bld) [#/Vol] 11.1 x10*3/uL Normal 4.4-11.3 [facility] Comment on above: Performed By: #### 5 8410-2 #### NISA Reis ([id number]) [facility] ([facility]) [address] [place] [address] Erythrocyte distribution width (RBC) [Ratio] 13.5 % 11.5 - 14.5 % [facility] Hematocrit (Bld) [Volume fraction] 42.5 % 41.0 - 52.0 % [facility] Hemoglobin (Bld) [Mass/Vol] 13.6 g/dL 13.5 - 17.5 g/dL [facility] Interpretation and review of laboratory results Normal [facility] MCH (RBC) [Entitic mass] 27.4 pg 26.0 - 34.0 pg [facility] MCHC (RBC) [Mass/Vol] 32.0 g/dL 32.0 - 36.0 g/dL [facility] MCV (RBC) [Entitic vol] 86 fL 80 - 100 fL [facility] Nucleated RBC/100 WBC (Bld) [Ratio] 0.0 % [facility] Platelets (Bld) [#/Vol] 245 10*3/uL [facility] RBC (Bld) [#/Vol] 4.96 10*6/uL [facility] WBC (Bld) [#/Vol] 11.1 10*3/uL [facility] Basic metabolic 2000 panelon 11-30-2023 Anion gap [Moles/Vol] 10 mmol/L Normal <=19 [facility] Comment on above: Performed By: #### 2 4321-2 #### NISA Reis ([id number]) [facility] ([facility]) [address] [place] [address] Calcium [Mass/Vol] 9.1 mg/dL Normal 8.5-10.4 [facility] Comment on above: Performed By: #### 2 4321-2 #### NISA Reis ([id number]) [facility] ([facility]) [address] [place] [address] Chloride [Moles/Vol] 101 mmol/L Normal 97-107 [facility] Comment on above: Performed By: #### 2 4321-2 #### NISA Reis ([id number]) [facility] ([facility]) [address] [place] [address] CO2 [Moles/Vol] 26 mmol/L Normal 24-31 [facility] Comment on above: Performed By: #### 2 4321-2 #### NISA Reis ([id number]) [facility] ([facility]) [address] [place] [address] Creatinine [Mass/Vol] 1.10 mg/dL Normal 0.40-1.60 [facility] Comment on above: Performed By: #### 2 4321-2 #### NISA Reis ([id number]) [facility] ([facility]) [address] [place] [address] Glomerular filtration rate/1.73 sq M.predicted 86 mL/min/1.73m*2 Normal >60 [facility] Comment on above: Result Comment: Calc ulations of estimated GFR are performed using the 2020 CKD-EPI Study Refit equation without the race variable for the IDMS-Traceable creatinine methods. https://jasn.asnjournals.org/content//ASN.7581668 988 Performed By: #### 2 4321-2 #### NISA Reis ([id number]) [facility] ([facility]) [address] [place] [address] Glucose [Mass/Vol] 85 mg/dL Normal 65-99 [facility] Comment on above: Performed By: #### 2 4321-2 #### NISA Reis ([id number]) [facility] ([facility]) [address] [place] [address] Potassium [Moles/Vol] 3.6 mmol/L Normal 3.4-5.1 [facility] Comment on above: Performed By: #### 2 4321-2 #### NISA Reis ([id number]) [facility] ([facility]) [address] [place] [address] Sodium [Moles/Vol] 137 mmol/L Normal 133-145 [facility] Comment on above: Performed By: #### 2 4321-2 #### NISA Reis (67444) [facility] ([facility]) [address] [place] [address] Urea nitrogen [Mass/Vol] 14 mg/dL Normal 8-25 [facility] Comment on above: Performed By: #### 2 4321-2 #### NISA Reis ([id number]) [facility] ([facility]) [address] [place] [address] Anion gap [Moles/Vol] 10 mmol/L NINF - 19 mmol/L [facility] Calcium [Mass/Vol] 9.1 mg/dL 8.5 - 10. 4 mg/dL [facility] Chloride [Moles/Vol] 101 mmol/L 97 - 10 7 mmol/L [facility] CO2 [Moles/Vol] 26 mmol/L 24 - 31 mmol/L [facility] Creatinine [Mass/Vol] 1.10 mg/dL 0.40 - 1.60 mg/dL [facility] GFR/1.73 sq M.predicted among non-blacks MDRD (S/P/Bld) [Vol rate/Area] 86 mL/min/{1.73_m2} - PINF [facility] Comment on above: Calculations of lee mated GFR are performed using the 2020 CKD-EPI Study Refit equation without the race variable for the IDMS-Traceable creatinine methods. https://jasn.asnjournals.org/content//ASN.0758197 988 Glucose [Mass/Vol] 85 mg/dL 65 - 99 mg/dL [facility] Interpretation and review of laboratory results Normal [facility] Potassium [Moles/Vol] 3.6 mmol/L 3.4 - 5.1 mmol/L [facility] Sodium [Moles/Vol] 137 mmol/L 133 - 145 mmol/L [facility] Urea nitrogen [Mass/Vol] 14 mg/dL 8 - 25 mg/dL [facility] CBC W Auto Differential pane l (Bld)on 11-30-2023 Basophils (Bld) [#/Vol] 0.04 x10*3/uL Normal 0.00-0.10 [facility] Comment on above: Performed By: #### 5 7021-8 #### NISA Reis ([id number]) [facility] ([facility]) [address] [place] [address] Basophils/100 WBC (Bld) 0.4 % Normal 0.0-2.0 [facility] Comment on above: Performed By: #### 5 7021-8 #### NISA Reis ([id number]) [facility] ([facility]) [address] [place] [address] Eosinophils (Bld) [#/Vol] 0.09 x10*3/uL Normal 0.00-0.70 [facility] Comment on above: Performed By: #### 5 7021-8 #### NISA Reis (07247) [facility] ([facility]) [address] [place] [address] Eosinophils/100 WBC (Bld) 0.8 % Normal 0.0-6.0 [facility] Comment on above: Performed By: #### 5 7021-8 #### NISA Reis ([id number]) [facility] ([facility]) [address] [place] [address] Erythrocyte distribution width (RBC) [Ratio] 13.5 % Normal 11.5-14.5 [facility] Comment on above: Performed By: #### 5 7021-8 #### NISA Reis (23457) [facility] ([facility]) [address] [place] [address] Hematocrit (Bld) [Volume fraction] 39.9 % Low 41.0-52.0 [facility] Comment on above: Performed By: #### 5 7021-8 #### NISA Reis (08593) [facility] ([facility]) [address] [place] [address] Hemoglobin (Bld) [Mass/Vol] 12.9 g/dL Low 13.5-17.5 [facility] Comment on above: Performed By: #### 5 7021-8 #### NISA Reis ([id number]) [facility] ([facility]) [address] [place] [address] Immature granulocytes (Bld) [#/Vol] 0.03 x10*3/uL Normal 0.00-0.70 [facility] Comment on above: Performed By: #### 5 7021-8 #### NISA Reis (59938) [facility] ([facility]) [address] [place] [address] Immature granulocytes/100 WBC (Bld) 0.3 % Normal 0.0-0.9 [facility] Comment on above: Result Comment: Phylicia ture Granulocyte Count (IG) includes promyelocytes, myelocytes and metamyelocytes but does not include bands. Percent differential counts (%) should be interpreted in the context of the absolute cell counts (cells/UL). Performed By: #### 5 7021-8 #### NISA Reis (44036) [facility] ([facility]) [address] [place] [address] Lymphocytes (Bld) [#/Vol] 3.28 x10*3/uL Normal 1.20-4.80 [facility] Comment on above: Performed By: #### 5 7021-8 #### NISA Reis (27164) [facility] ([facility]) [address] [place] [address] Lymphocytes/100 WBC (Bld) 29.7 % Normal 13.0-44.0 [facility] Comment on above: Performed By: #### 5 7021-8 #### NISA Reis (79565) [facility] ([facility]) [address] [place] [address] MCH (RBC) [Entitic mass] 27.6 pg Normal 26.0-34.0 [facility] Comment on above: Performed By: #### 5 7021-8 #### NISA Reis (97824) [facility] ([facility]) [address] [place] [address] MCHC (RBC) [Mass/Vol] 32.3 g/dL Normal 32.0-36.0 [facility] Comment on above: Performed By: #### 5 7021-8 #### NISA Reis (26931) [facility] ([facility]) [address] [place] [address] MCV (RBC) [Entitic vol] 85 fL Normal 80-100 [facility] Comment on above: Performed By: #### 5 7021-8 #### NISA Reis ([id number]) [facility] ([facility]) [address] [place] [address] Monocytes (Bld) [#/Vol] 1.12 x10*3/uL High 0.10-1.00 [facility] Comment on above: Performed By: #### 5 7021-8 #### NISA Reis (40485) [facility] ([facility]) [address] [place] [address] Monocytes/100 WBC (Bld) 10.1 % Normal 2.0-10.0 [facility] Comment on above: Performed By: #### 5 7021-8 #### NISA Reis (94577) [facility] ([facility]) [address] [place] [address] Neutrophils (Bld) [#/Vol] 6.50 x10*3/uL Normal 1.20-7.70 [facility] Comment on above: Result Comment: Perc ent differential counts (%) should be interpreted in the context of the absolute cell counts (cells/uL). Performed By: #### 5 7021-8 #### NISA Reis (93654) [facility] ([facility]) [address] [place] [address] Neutrophils/100 WBC (Bld) 58.7 % Normal 40.0-80.0 [facility] Comment on above: Performed By: #### 5 7021-8 #### NISA Reis (23056) [facility] ([facility]) [address] [place] [address] Nucleated RBC/100 WBC (Bld) [Ratio] 0.0 /100 WBCs Normal 0.0-0.0 [facility] Comment on above: Performed By: #### 5 7021-8 #### NISA Reis (27348) [facility] ([facility]) [address] [place] [address] Platelets (Bld) [#/Vol] 231 x10*3/uL Normal 150-450 [facility] Comment on above: Performed By: #### 5 7021-8 #### NISA Reis ([id number]) [facility] ([facility]) [address] [place] [address] RBC (Bld) [#/Vol] 4.67 x10*6/uL Normal 4.50-5.90 [facility] Comment on above: Performed By: #### 5 7021-8 #### NISA Reis ([id number]) [facility] ([facility]) [address] [place] [address] WBC (Bld) [#/Vol] 11.1 x10*3/uL Normal 4.4-11.3 [facility] Comment on above: Performed By: #### 5 7021-8 #### NISA Reis ([id number]) [facility] ([facility]) [address] [place] [address] Basophils (Bld) [#/Vol] 0.04 10*3/uL [facility] Basophils/100 WBC (Bld) 0.4 % 0.0 - 2.0 % [facility] Eosinophils (Bld) [#/Vol] 0.09 10*3/uL [facility] Eosinophils/100 WBC (Bld) 0.8 % 0.0 - 6.0 % [facility] Erythrocyte distribution width (RBC) [Ratio] 13.5 % 11.5 - 14.5 % [facility] Hematocrit (Bld) [Volume fraction] 39.9 % Low 41.0 - 52.0 % [facility] Hemoglobin (Bld) [Mass/Vol] 12.9 g/dL Low 13.5 - 17.5 g/dL [facility] Immature granulocytes (Bld) [#/Vol] 0.03 10*3/uL [facility] Immature granulocytes/100 WBC (Bld) 0.3 % 0.0 - 0.9 % [facility] Comment on above: Immature Granulocyte Count (IG) includes promyelocytes, myelocytes and metamyelocytes but does not include bands. Percent differential counts (%) should be interpreted in the context of the absolute cell counts (cells/UL). Interpretation and review of laboratory results Abnormal [facility] Lymphocytes (Bld) [#/Vol] 3.28 10*3/uL [facility] Lymphocytes/100 WBC (Bld) 29.7 % 13.0 - 44.0 % [facility] MCH (RBC) [Entitic mass] 27.6 pg 26.0 - 34.0 pg [facility] MCHC (RBC) [Mass/Vol] 32.3 g/dL 32.0 - 36.0 g/dL [facility] MCV (RBC) [Entitic vol] 85 fL 80 - 100 fL [facility] Monocytes (Bld) [#/Vol] 1.12 10*3/uL High [facility] Monocytes/100 WBC (Bld) 10.1 % 2.0 - 10.0 % [facility] Neutrophils (Bld) [#/Vol] 6.50 10*3/uL [facility] Comment on above: Percent differential counts (%) should be interpreted in the context of the absolute cell counts (cells/uL). Neutrophils/100 WBC (Bld) 58.7 % 40.0 - 80.0 % [facility] Nucleated RBC/100 WBC (Bld) [Ratio] 0.0 % [facility] Platelets (Bld) [#/Vol] 231 10*3/uL [facility] RBC (Bld) [#/Vol] 4.67 10*6/uL [facility] WBC (Bld) [#/Vol] 11.1 10*3/uL [facility] CT Neck W contrast Dash 03-1 1. [...] Tita Brennan 11/30/2023 10:37 PM Dictation workstation: [id number] Interpreted By: Tiat Alvarado ch, STUDY: CT SOFT TISSUE NECK W IV CONTRAST; 11/30/2023 9:48 pm INDICATION: Signs/Symptoms:Left submandibular swelling. Left neck pain and left ear pain. COMPARISON: None. ACCESSION NUMBER(S): [id number] ORDERING CLINICIAN: BOBBI SMITH TECHNIQUE: Axial CT [...] left ear pain. COMPARISON: None. ACCESSION NUMBER(S): [id number] ORDERING CLINICIAN: BOBBI SMITH TECHNIQUE: Axial CT [...] Tita Brennan 11/30/2023 10:37 PM Dictation workstation: [id number] [facility] Work Phone: Radiology Study observation (narrative) [facility] Work Phone: CT Neck W contrast IVOrdered By: Tita Brennan on 11-30-2023 [facility] Work Phone: CT SOFT TISSUE NECK W IV CON TRASTon 11-30-2023 CT SOFT TISSUE NECK W IV CONTRAST Interpreted By: Tita Brennan, STUDY: CT SOFT TISSUE NECK W IV CONTRAST; 11/30/2023 9:48 pm INDICATION: Signs/Symptoms:Left submandibular swelling. Left neck pain and left ear pain. COMPARISON: None. ACCESSION NUMBER(S): [id number] ORDERING CLINICIAN: BOBBI SMITH TECHNIQUE: Axial CT [...] Tita Brennan 11/30/2023 10:37 PM Dictation workstation: [id number] [facility] CBC W Auto Differential pane l (Bld)on 11-25-2023 Basophils (Bld) [#/Vol] 0.03 10*3/uL Normal <0.11 [facility] Comment on above: Order Comment: Speci men Type: BLOOD SPECIMEN Ordering Facility: [facility] Address: [address] [place] [address] Performed By: #### 5 7021-8 #### [facility] CLIA [id number] [address] [place] [address] [place] Basophils/100 WBC (Bld) 0.4 % Normal [facility] Comment on above: Order Comment: Speci men Type: BLOOD SPECIMEN Ordering Facility: [facility] Address: [address] [place] [address] Performed By: #### 5 7021-8 #### [facility] CLIA [id number] [address] [place] [address] [place] Differential cell count method Nom (Bld) Auto Normal [facility] Comment on above: Order Comment: Speci men Type: BLOOD SPECIMEN Ordering Facility: [facility] Address: [address] [place] [address] Performed By: #### 5 7021-8 #### [facility] IA [id number] [address] [place] [address] [place] Eosinophils (Bld) [#/Vol] 0.46 10*3/uL High <0.46 [facility] Comment on above: Order Comment: Speci men Type: BLOOD SPECIMEN Ordering Facility: [facility] Address: [address] [place] [address] Performed By: #### 5 7021-8 #### [facility] IA [id number] [address] [place] [address] [place] Eosinophils/100 WBC (Bld) 5.5 % Normal [facility] Comment on above: Order Comment: Speci men Type: BLOOD SPECIMEN Ordering Facility: [facility] Address: [address] [place] [address] Performed By: #### 5 7021-8 #### [facility] IA [id number] [address] [place] [address] [place] Erythrocyte distribution width (RBC) [Ratio] 13.7 % Normal 11.5-15.0 [facility] Comment on above: Order Comment: Speci men Type: BLOOD SPECIMEN Ordering Facility: [facility] Address: [address] [place] [address] Performed By: #### 5 7021-8 #### [facility] IA [id number] [address] [place] [address] [place] Hematocrit (Bld) [Volume fraction] 44.7 % Normal 39.0-51.0 [facility] Comment on above: Order Comment: Speci men Type: BLOOD SPECIMEN Ordering Facility: [facility] Address: [address] [place] [address] Performed By: #### 5 7021-8 #### [facility] IA [id number] [address] [place] [address] [facility] [place] Hemoglobin (Bld) [Mass/Vol] 14.8 g/dL Normal 13.0-17.0 [facility] Comment on above: Order Comment: Speci men Type: BLOOD SPECIMEN Ordering Facility: [facility] Address: [address] [place] [address] Performed By: #### 5 7021-8 #### [facility] CLIA [id number] [address] [place] [address] [place] Immature granulocytes (Bld) [#/Vol] 10*3/uL Normal <0.10 [facility] Comment on above: Order Comment: Speci men Type: BLOOD SPECIMEN Ordering Facility: [facility] Address: [address] [place] [address] Performed By: #### 5 7021-8 #### [facility] CLIA [id number] [address] [place] [address] [place] Immature granulocytes/100 WBC (Bld) 0.2 % Normal [facility] Comment on above: Order Comment: Speci men Type: BLOOD SPECIMEN Ordering Facility: [facility] Address: [address] [place] [address] Performed By: #### 5 7021-8 #### [facility] IA [id number] [address] [place] [address] [place] Lymphocytes (Bld) [#/Vol] 1.95 10*3/uL Normal 1.00-4.00 [facility] Comment on above: Order Comment: Speci men Type: BLOOD SPECIMEN Ordering Facility: [facility] Address: [address] [place] [address] Performed By: #### 5 7021-8 #### [facility] IA [id number] [address] [place] [address] [place] Lymphocytes/100 WBC (Bld) 23.4 % Normal [facility] Comment on above: Order Comment: Speci men Type: BLOOD SPECIMEN Ordering Facility: [facility] Address: [address] [place] [address] Performed By: #### 5 7021-8 #### [facility] IA [id number] [address] [place] [address] [place] MCH (RBC) [Entitic mass] 28.2 pg Normal 26.0-34.0 [facility] Comment on above: Order Comment: Speci men Type: BLOOD SPECIMEN Ordering Facility: [facility] Address: [address] [place] [address] Performed By: #### 5 7021-8 #### [facility] IA [id number] [address] [place] [address] [place] MCHC (RBC) [Mass/Vol] 33.1 g/dL Normal 30.5-36.0 [facility] Comment on above: Order Comment: Speci men Type: BLOOD SPECIMEN Ordering Facility: [facility] Address: [address] [place] [address] Performed By: #### 5 7021-8 #### [facility] IA [id number] [address] [place] [address] [place] MCV (RBC) [Entitic vol] 85.3 fL Normal 80.0-100.0 [facility] Comment on above: Order Comment: Speci men Type: BLOOD SPECIMEN Ordering Facility: [facility] Address: [address] [place] [address] Performed By: #### 5 7021-8 #### [facility] IA [id number] [address] [place] [address] [place] Monocytes (Bld) [#/Vol] 0.77 10*3/uL Normal <0.87 [facility] Comment on above: Order Comment: Speci men Type: BLOOD SPECIMEN Ordering Facility: [facility] Address: [address] [place] [address] Performed By: #### 5 7021-8 #### [facility] IA [id number] [address] [place] [address] [facility] Monocytes/100 WBC (Bld) 9.2 % Normal [facility] Comment on above: Order Comment: Speci men Type: BLOOD SPECIMEN Ordering Facility: [facility] Address: [address] [place] [address] Performed By: #### 5 7021-8 #### [facility] IA [id number] [address] [place] [address] [place] Neutrophils (Bld) [#/Vol] 5.11 10*3/uL Normal 1.45-7.50 [facility] Comment on above: Order Comment: Speci men Type: BLOOD SPECIMEN Ordering Facility: [facility] Address: [address] [place] [address] Performed By: #### 5 7021-8 #### [facility] CLIA [id number] [address] [place] [address] [place] Neutrophils/100 WBC (Bld) 61.3 % Normal [facility] Comment on above: Order Comment: Speci men Type: BLOOD SPECIMEN Ordering Facility: [facility] Address: [address] [place] [address] Performed By: #### 5 7021-8 #### [facility] IA [id number] [address] [place] [address] [place] Nucleated RBC (Bld) [#/Vol] 10*3/uL Normal <0.01 [facility] Comment on above: Order Comment: Speci men Type: BLOOD SPECIMEN Ordering Facility: [facility] Address: [address] [place] [address] Performed By: #### 5 7021-8 #### [facility] IA [id number] [address] [place] [address] [place] Nucleated RBC/100 WBC (Bld) [Ratio] 0.0 /100 WBC Normal [facility] Comment on above: Order Comment: Speci men Type: BLOOD SPECIMEN Ordering Facility: [facility] Address: [address] [place] [address] Performed By: #### 5 7021-8 #### [facility] CLIA [id number] [address] [place] [address] [place] Platelet mean volume (Bld) [Entitic vol] 10.5 fL Normal 9.0-12.7 [facility] Comment on above: Order Comment: Speci men Type: BLOOD SPECIMEN Ordering Facility: [facility] Address: [address] [place] [address] Performed By: #### 5 7021-8 #### [facility] CLIA [id number] [address] [place] [address] [facility] [place] Platelets (Bld) [#/Vol] 220 10*3/uL Normal 150-400 [facility] Comment on above: Order Comment: Speci men Type: BLOOD SPECIMEN Ordering Facility: [facility] Address: [address] [place] [address] Performed By: #### 5 7021-8 #### [facility] CLIA [id number] [address] [place] [address] [facility] [place] RBC (Bld) [#/Vol] 5.24 10*6/uL Normal 4.20-6.00 [facility] Comment on above: Order Comment: Speci men Type: BLOOD SPECIMEN Ordering Facility: [facility] Address: [address] [place] [address] Performed By: #### 5 7021-8 #### [facility] IA [id number] [address] [place] [address] [facility] WBC (Bld) [#/Vol] 8.34 10*3/uL Normal 3.70-11.00 [facility] Comment on above: Order Comment: Speci men Type: BLOOD SPECIMEN Ordering Facility: [facility] Address: [address] [place] [address] Performed By: #### 5 7021-8 #### [facility] CLIA [id number] [address] [place] [address] [facility] Comprehensive metabolic 2000 panelon 11-25-2023 Albumin [Mass/Vol] 4.5 g/dL Normal 3.9-4.9 [facility] Comment on above: Order Comment: Speci men Type: BLOOD SPECIMEN Ordering Facility: [facility] Address: [address] [place] [address] Performed By: #### 2 4323-8 #### [facility] CLIA [id number] [address] [place] [address] [facility] ALP [Catalytic activity/Vol] 55 U/L Normal 38-113 [facility] Comment on above: Order Comment: Speci men Type: BLOOD SPECIMEN Ordering Facility: [facility] Address: [address] [place] [address] Performed By: #### 2 4323-8 #### [facility] CLIA [id number] [address] [place] [address] [place] ALT [Catalytic activity/Vol] 21 U/L Normal 10-54 [facility] Comment on above: Order Comment: Speci men Type: BLOOD SPECIMEN Ordering Facility: [facility] Address: [address] [facility] [place] [address] Performed By: #### 2 4323-8 #### [facility] CLIA [id number] [address] [place] [address] [place] Anion gap [Moles/Vol] 8 mmol/L Low 9-18 [facility] Comment on above: Order Comment: Speci men Type: BLOOD SPECIMEN Ordering Facility: [facility] Address: [address] [facility] [place] [address] Performed By: #### 2 4323-8 #### [facility] CLIA [id number] [address] [place] [address] [place] AST [Catalytic activity/Vol] 21 U/L Normal 14-40 [facility] Comment on above: Order Comment: Speci men Type: BLOOD SPECIMEN Ordering Facility: [facility] Address: [address] [place] [address] Performed By: #### 2 4323-8 #### [facility] CLIA [id number] [address] [place] [address] [place] Bilirubin [Mass/Vol] 0.8 mg/dL Normal 0.2-1.3 [facility] Comment on above: Order Comment: Speci men Type: BLOOD SPECIMEN Ordering Facility: [facility] Address: [facility] [place] [address] Performed By: #### 2 4323-8 #### [facility] CLIA [id number] [address] [place] [address] [place] Calcium [Mass/Vol] 9.4 mg/dL Normal 8.5-10.2 [facility] Comment on above: Order Comment: Speci men Type: BLOOD SPECIMEN Ordering Facility: [facility] Address: [address] [place] [address] Performed By: #### 2 4323-8 #### [facility] CLIA [id number] [address] [place] [address] [place] Chloride [Moles/Vol] 103 mmol/L Normal 97-105 [facility] Comment on above: Order Comment: Speci men Type: BLOOD SPECIMEN Ordering Facility: [facility] Address: [address] [place] [address] Performed By: #### 2 4323-8 #### [facility] IA [id number] [address] [place] [address] [place] CO2 [Moles/Vol] 26 mmol/L Normal 22-30 [facility] Comment on above: Order Comment: Speci men Type: BLOOD SPECIMEN Ordering Facility: [facility] Address: [address] [place] [address] Performed By: #### 2 4323-8 #### [facility] IA [id number] [address] [place] [address] [place] Creatinine [Mass/Vol] 1.04 mg/dL Normal 0.73-1.22 [facility] Comment on above: Order Comment: Speci men Type: BLOOD SPECIMEN Ordering Facility: [facility] Address: [address] [place] [address] Performed By: #### 2 4323-8 #### [facility] CLIA [id number] [address] [place] [address] [facility] [place] Creatinine and Glomerular filtration rate.predicted panel (S/P/Bld) 92 mL/min/1.73m??? Normal >=60 [facility] Comment on above: Order Comment: Speci men Type: BLOOD SPECIMEN Ordering Facility: [facility] Address: [address] [place] [address] Result Comment: Lee mated Glomerular Filtration Rate [...] GFR. Performed By: #### 2 4323-8 #### [facility] CLIA [id number] [address] [place] [address] [place] Glucose [Mass/Vol] 96 mg/dL Normal 74-99 [facility] Comment on above: Order Comment: Carolina pacheco Type: BLOOD SPECIMEN Ordering Facility: [facility] Address: [address] [id number] Result Comment: The [place] [employer] (ADA) provides guidance for cutoff [...] Standards of Medical Care in Diabetes 2016, [place] [employer]. Diabetes Care. 2016.39(Suppl 1). Performed By: #### 2 4323-8 #### [facility] CLIA [id number] [address] [place] [address] [place] Potassium [Moles/Vol] 4.1 mmol/L Normal 3.7-5.1 [facility] Comment on above: Order Comment: Carolina pacheco Type: BLOOD SPECIMEN Ordering Facility: [facility] Address: [address] [place] [address] Performed By: #### 2 4323-8 #### [facility] CLIA [id number] [address] [place] [address] [place] Protein [Mass/Vol] 7.6 g/dL Normal 6.3-8.0 [facility] Comment on above: Order Comment: Carolina pacheco Type: BLOOD SPECIMEN Ordering Facility: [facility] Address: [address] [id number] Performed By: #### 2 4323-8 #### [facility] CLIA [id number] [address] [place] [address] [facility] Sodium [Moles/Vol] 137 mmol/L Normal 136-144 [facility] Comment on above: Order Comment: Speci men Type: BLOOD SPECIMEN Ordering Facility: [facility] Address: [address] [place] [address] Performed By: #### 2 4323-8 #### [facility] CLIA [id number] [address] [place] [address] [place] [facility] Urea nitrogen [Mass/Vol] 14 mg/dL Normal 9-24 [facility] Comment on above: Order Comment: Speci men Type: BLOOD SPECIMEN Ordering Facility: [facility] Address: [address] [id number] Performed By: #### 2 4323-8 #### [facility] CLIA [id number] [address] [place] [address] [facility] ED NOTEon 11-25-2023 ED NOTE HNO ID: [id number] Author: JOAO DONATO RN Service: Nursing Author Type: Registered Nurse Type: ED Notes Filed: 11/25/2023 09:52 Note Text: Reviewed discharge instructions with patient. Pt verbalized understanding and denied any questions. Pt ambulatory to the waiting room. [facility] ED NOTE HNO ID: [id number] Author: ANA PAULA MADRIGAL RN Service: ? Author Type: Registered Nurse Type: ED Notes Filed: 11/25/2023 08:04 Note Text: Pt states that he has had L ear pain for the last week, pt also states that his glands are swollen and it hurts to swallow. [facility] ED PROV NOTEon 11-25-2023 ED PROV NOTE HNO ID: [id number] Author: ABHAY PERDUE MD Service: Emergency Medicine [...] 01/25/2012 Chest Pain - 04/27/2010 Paranoid Schizophrenia ([facility]) - 04/22/2010 No past surgical [...] Negative 0902 WBC: 8.34 No leukocytosis [address] [place] Test: Negative 0925 COVID 19 Result: Not detected Clinical Impressions as of 11/25/23 1426 Lymph node enlargement - cervical Ear pain, left COVID-19 test performed per [facility] [employer] policy for suspected COVID community exposure. MDM [...] be viral (more content not included)... Normal [facility] FLUABV+SARS-CoV-2+RSV Pnl Re sp TARIK+probeon 11-25-2023 FLUABV+SARS-CoV-2+RS V Pnl Resp TARIK+probe COVID 19 RESULT: Not detected The method used is RT-PCR or an equivalent NAAT method. Reference Range(the expected result in uninfected individuals): Not detected INFLUENZA A PCR: Not detected INFLUENZA B PCR: Not detected RSV PCR: Not detected Normal [facility] Comment on above: Performed By: #### 9 5941-1 #### [facility] CLIA [id number] [address] [place] [address] [facility] Heteroph Ab Ser Ql LAon 11-15 Heterophile Ab LA Ql (S) Negative Normal Negative [facility] Comment on above: Order Comment: Speci men Type: BLOOD SPECIMEN Ordering Facility: [facility] Address: [address] [place] [address] Result Comment: Infe ctious Mononucleosis rapid test is used as an aid in diagnosis of acute infection with Erik-Monsalve virus (EBV). The antibody levels may occasionally [...] required. Performed By: #### 5 213-4 #### [facility] CLIA [id number] [address] [place], [place] [address] [facility] ALLIED HEALTHon 04-28-2022 ALLIED HEALTH HNO ID: [id number] Author: RT Silvia(R) Service: ? Author Type: [...] Silvia(R) April 28, 2022 10:13 AM Normal [facility] CBC W Auto Differential pane l (Bld)on 04-28-2022 Basophils (Bld) [#/Vol] 0.05 10*3/uL Normal <0.11 [facility] Comment on above: Order Comment: Speci men Type: BLOOD SPECIMEN Ordering Facility: [facility] Address: [address] [place] [address] Performed By: #### 5 7021-8 #### [facility] CLIA [id number] [address] [place] [address] [place] Basophils/100 WBC (Bld) 0.8 % Normal [facility] Comment on above: Order Comment: Speci men Type: BLOOD SPECIMEN Ordering Facility: [facility] Address: [address] [place] [address] Performed By: #### 5 7021-8 #### [facility] CLIA [id number] [address] [place] [address] [place] Differential cell count method Nom (Bld) Auto Normal [facility] Comment on above: Order Comment: Speci men Type: BLOOD SPECIMEN Ordering Facility: [facility] Address: [address] [place] [address] Performed By: #### 5 7021-8 #### [facility] CLIA [id number] [address] [place] [address] [place] Eosinophils (Bld) [#/Vol] 0.41 10*3/uL Normal <0.46 [facility] Comment on above: Order Comment: Speci men Type: BLOOD SPECIMEN Ordering Facility: [facility] Address: [address] [place] [address] Performed By: #### 5 7021-8 #### [facility] CLIA [id number] [address] [place] [address] [place] Eosinophils/100 WBC (Bld) 6.3 % Normal [facility] Comment on above: Order Comment: Speci men Type: BLOOD SPECIMEN Ordering Facility: [facility] Address: [address] [place] [address] Performed By: #### 5 7021-8 #### [facility] CLIA [id number] [place] [address] [place] Erythrocyte distribution width (RBC) [Ratio] 14.7 % Normal 11.5-15.0 [facility] Comment on above: Order Comment: Speci men Type: BLOOD SPECIMEN Ordering Facility: [facility] Address: [address] [place] [address] Performed By: #### 5 7021-8 #### [facility] CLIA [id number] [address] [place] [address] [place] Hematocrit (Bld) [Volume fraction] 49.9 % Normal 39.0-51.0 [facility] Comment on above: Order Comment: Speci men Type: BLOOD SPECIMEN Ordering Facility: [facility] Address: [address] [place] [address] Performed By: #### 5 7021-8 #### [facility] CLIA [id number] [address] [place] [address] [place] Hemoglobin (Bld) [Mass/Vol] 16.1 g/dL Normal 13.0-17.0 [facility] Comment on above: Order Comment: Speci men Type: BLOOD SPECIMEN Ordering Facility: [facility] Address: [address] [place] [address] Performed By: #### 5 7021-8 #### [facility] CLIA [id number] [address] [place] [address] [place] IMMATURE GRAN % 0.3 % Normal [facility] Comment on above: Order Comment: Speci men Type: BLOOD SPECIMEN Ordering Facility: [facility] Address: [address] [place] [address] Performed By: #### 5 7021-8 #### [facility] CLIA [id number] [address] [place] [address] [place] IMMATURE GRAN ABS <0.03 Normal <0.10 [facility] Comment on above: Order Comment: Speci men Type: BLOOD SPECIMEN Ordering Facility: [facility] Address: [address] [place] [address] Performed By: #### 5 7021-8 #### [facility] CLIA [id number] [place] Lymphocytes (Bld) [#/Vol] 1.99 10*3/uL Normal 1.00-4.00 [facility] Comment on above: Order Comment: Speci men Type: BLOOD SPECIMEN Ordering Facility: [facility] Address: [address] [place] [address] Performed By: #### 5 7021-8 #### [facility] CLIA [id number] Lymphocytes/100 WBC (Bld) 30.8 % Normal [facility] Comment on above: Order Comment: Speci men Type: BLOOD SPECIMEN Ordering Facility: [facility] Address: [address] [place] [address] Performed By: #### 5 7021-8 #### [facility] CLIA [id number] [address] [place] MCH (RBC) [Entitic mass] 28.1 pg Normal 26.0-34.0 [facility] Comment on above: Order Comment: Speci men Type: BLOOD SPECIMEN Ordering Facility: [facility] Address: [address] [place] [address] Performed By: #### 5 7021-8 #### [facility] CLIA [id number] [place] MCHC (RBC) [Mass/Vol] 32.3 g/dL Normal 30.5-36.0 [facility] Comment on above: Order Comment: Speci men Type: BLOOD SPECIMEN Ordering Facility: [facility] Address: [address] [address] Performed By: #### 5 7021-8 #### [facility] CLIA [id number] [place] [address] [place] MCV (RBC) [Entitic vol] 87.2 fL Normal 80.0-100.0 [facility] Comment on above: Order Comment: Speci men Type: BLOOD SPECIMEN Ordering Facility: [facility] Address: [address] [place] [address] Performed By: #### 5 7021-8 #### [facility] CLIA [id number] [address] [place] [address] [place] Monocytes (Bld) [#/Vol] 0.63 10*3/uL Normal <0.87 [facility] Comment on above: Order Comment: Speci men Type: BLOOD SPECIMEN Ordering Facility: [facility] Address: [address] [place] [address] Performed By: #### 5 7021-8 #### [facility] CLIA [id number] [address] [place] [address] [place] Monocytes/100 WBC (Bld) 9.7 % Normal [facility] Comment on above: Order Comment: Speci men Type: BLOOD SPECIMEN Ordering Facility: [facility] Address: [address] [place] [address] Performed By: #### 5 7021-8 #### [facility] CLIA [id number] [place] [address] [place] Neutrophils (Bld) [#/Vol] 3.37 10*3/uL Normal 1.45-7.50 [facility] Comment on above: Order Comment: Speci men Type: BLOOD SPECIMEN Ordering Facility: [facility] Address: [address] [place] [address] Performed By: #### 5 7021-8 #### [facility] CLIA [id number] [address] [place] [address] [place] Neutrophils/100 WBC (Bld) 52.1 % Normal [facility] Comment on above: Order Comment: Speci men Type: BLOOD SPECIMEN Ordering Facility: [facility] Address: [address] [place] [address] Performed By: #### 5 7021-8 #### [facility] CLIA [id number] [address] [place] [address] [place] Nucleated RBC (Bld) [#/Vol] 10*3/uL Normal <0.01 [facility] Comment on above: Order Comment: Speci men Type: BLOOD SPECIMEN Ordering Facility: [facility] Address: [address] [place] [address] Performed By: #### 5 7021-8 #### [facility] CLIA [id number] [address] [place] [address] [place] Nucleated RBC/100 WBC (Bld) [Ratio] 0.0 /100 WBC Normal [facility] Comment on above: Order Comment: Speci men Type: BLOOD SPECIMEN Ordering Facility: [facility] Address: [address] [place] [address] Performed By: #### 5 7021-8 #### [facility] CLIA [id number] [place] [address] [place] Platelet mean volume (Bld) [Entitic vol] 10.3 fL Normal 9.0-12.7 [facility] Comment on above: Order Comment: Speci men Type: BLOOD SPECIMEN Ordering Facility: [facility] Address: [address] [place] [address] Performed By: #### 5 7021-8 #### [facility] CLIA [id number] [place] [address] [place] Platelets (Bld) [#/Vol] 209 10*3/uL Normal 150-400 [facility] Comment on above: Order Comment: Speci men Type: BLOOD SPECIMEN Ordering Facility: [facility] Address: [address] [place] [address] Performed By: #### 5 7021-8 #### [facility] CLIA [id number] [facility] RBC (Bld) [#/Vol] 5.72 10*6/uL Normal 4.20-6.00 [facility] Comment on above: Order Comment: Speci men Type: BLOOD SPECIMEN Ordering Facility: [facility] Address: [address] [place] [address] Performed By: #### 5 7021-8 #### [facility] CLIA [id number] [facility] WBC (Bld) [#/Vol] 6.47 10*3/uL Normal 3.70-11.00 [facility] Comment on above: Order Comment: Speci men Type: BLOOD SPECIMEN Ordering Facility: [facility] Address: [address] [place] [address] Performed By: #### 5 7021-8 #### [facility] CLIA [id number] [address] [facility] Comprehensive metabolic 2000 panelon 04-28-2022 Albumin [Mass/Vol] 4.7 g/dL Normal 3.9-4.9 [facility] Comment on above: Order Comment: Speci men Type: BLOOD SPECIMEN Ordering Facility: [facility] Address: [address] [place] [address] Performed By: #### H STNT, 60215-7, 43730-3 #### [facility] CLIA [id number] [place] ALP [Catalytic activity/Vol] 73 U/L Normal 38-113 [facility] Comment on above: Order Comment: Speci men Type: BLOOD SPECIMEN Ordering Facility: [facility] Address: [address] [place] [address] Performed By: #### H STNT, 42514-7, 90933-7 #### [facility] CLIA [id number] [address] [place] [address] [place] ALT [Catalytic activity/Vol] 27 U/L Normal 10-54 [facility] Comment on above: Order Comment: Speci men Type: BLOOD SPECIMEN Ordering Facility: [facility] Address: [address] [place] [address] Performed By: #### H STNT, 05046-1, 10777-7 #### [facility] CLIA [id number] [address] [place] [address] [place] Anion gap [Moles/Vol] 12 mmol/L Normal 9-18 [facility] Comment on above: Order Comment: Speci men Type: BLOOD SPECIMEN Ordering Facility: [facility] Address: [address] [place] [address] Performed By: #### H STNT, 34042-1, 65448-1 #### [facility] CLIA [id number] [address] [place] [address] [facility] AST [Catalytic activity/Vol] 26 U/L Normal 14-40 [facility] Comment on above: Order Comment: Speci men Type: BLOOD SPECIMEN Ordering Facility: [facility] Address: [address] [place] [address] Performed By: #### H STNT, 76302-2, 55038-8 #### [facility] CLIA [id number] [address] [place] [address] [place] Bilirubin [Mass/Vol] 0.6 mg/dL Normal 0.2-1.3 [facility] Comment on above: Order Comment: Speci men Type: BLOOD SPECIMEN Ordering Facility: [facility] Address: [address] [place] [address] Performed By: #### H STNT, 63144-4, 15322-0 #### [facility] CLIA [id number] [address] [place] [address] [place] Calcium [Mass/Vol] 9.3 mg/dL Normal 8.5-10.2 [facility] Comment on above: Order Comment: Speci men Type: BLOOD SPECIMEN Ordering Facility: [facility] Address: [address] [address] Performed By: #### H STNT, 27979-9, 94402-2 #### [facility] CLIA [id number] [address] [place] [address] [place] Chloride [Moles/Vol] 104 mmol/L Normal 97-105 [facility] Comment on above: Order Comment: Speci men Type: BLOOD SPECIMEN Ordering Facility: [facility] Address: [address] [address] Performed By: #### H STNT, 52088-5, 76672-0 #### [facility] CLIA [id number] [place] [address] [place] CO2 [Moles/Vol] 25 mmol/L Normal 22-30 [facility] Comment on above: Order Comment: Speci men Type: BLOOD SPECIMEN Ordering Facility: [facility] Address: [address] [place] [address] Performed By: #### H STNT, 91354-0, 84600-0 #### [facility] CLIA [id number] [address] [place] [address] [place] Creatinine [Mass/Vol] 1.03 mg/dL Normal 0.73-1.22 [facility] Comment on above: Order Comment: Speci men Type: BLOOD SPECIMEN Ordering Facility: [facility] Address: [address] [address] Performed By: #### H STNT, 27456-5, 80912-9 #### [facility] CLIA [id number] [address] [place] [address] [place] ESTIMATED GLOMERULAR FILTRATION RATE 94 mL/min/1.73m??? Normal >=60 [facility] Comment on above: Order Comment: Speci men Type: BLOOD SPECIMEN Ordering Facility: [facility] Address: [address] [place] [address] Result Comment: Lee mated Glomerular Filtration Rate [...] actual GFR. Performed By: #### H STNT, 05193-1, 28381-9 #### [facility] CLIA [id number] [address] [place] [address] [place] Glucose [Mass/Vol] 75 mg/dL Normal 74-99 [facility] Comment on above: Order Comment: Carolina pacheco Type: BLOOD SPECIMEN Ordering Facility: [facility] Address: [address] [address] Result Comment: The [place] Diabetes Association (ADA) provides guidance for cutoff [...] Standards of Medical Care in Diabetes 2016, [place] [employer]. Diabetes Care. 2016.39(Suppl 1). Performed By: #### H STNT, 96741-6, 91034-1 #### [facility] CLIA [id number] [address] [place] [address] [place] Potassium [Moles/Vol] 3.9 mmol/L Normal 3.7-5.1 [facility] Comment on above: Order Comment: Carolina pacheco Type: BLOOD SPECIMEN Ordering Facility: [facility] Address: [address] [id number] Performed By: #### H STNT, 00054-5, 66781-8 #### [facility] CLIA [id number] [address] [place] [address] [place] Protein [Mass/Vol] 7.2 g/dL Normal 6.3-8.0 [facility] Comment on above: Order Comment: Speci men Type: BLOOD SPECIMEN Ordering Facility: [facility] Address: [address] [place] [address] Performed By: #### H STNT, 54580-5, 52758-8 #### [facility] CLIA [id number] [place] Sodium [Moles/Vol] 141 mmol/L Normal 136-144 [facility] Comment on above: Order Comment: Speci men Type: BLOOD SPECIMEN Ordering Facility: [facility] Address: [address] [place] [address] Performed By: #### H STNT, 94230-4, 05263-7 #### [facility] CLIA [id number] [place] [address] Urea nitrogen [Mass/Vol] 15 mg/dL Normal 9-24 [facility] Comment on above: Order Comment: Speci men Type: BLOOD SPECIMEN Ordering Facility: [facility] Address: [address] [place] [address] Performed By: #### H STNT, 96875-3, 13091-1 #### [facility] CLIA [id number] [address] [facility] ED NOTEon 04-28-2022 ED NOTE HNO ID: [id number] Author: Loreto Bal RN Service: ? Author Type: Registered Nurse Type: ED Notes Filed: 04/28/2022 11:19 AM Note Text: Discharge instructions, prescription for Prilosec, and follow up with primary care physician and gastroenterology reviewed with patient, patient verbalized understanding, pt ambulated out of ED with steady gait. Normal [facility] ED NOTE HNO ID: [id number] Author: Tiesha Perez RN Service: Nursing Author Type: Registered Nurse Type: ED Notes Filed: 04/28/2022 8:41 AM Note Text: Patient presents to ED for CP and abd pain and vomiting. States it feels like burning. Normal [facility] ED PROV NOTEon 04-28-2022 ED PROV NOTE HNO ID: [id number] Author: Loreto Jeffrey, DO Service: ? Author [...] DO Loreto Ware DO 04/28/22 1108 Normal [facility] EKGon 04-28-2022 Electrocardiogram Ventricular Rate : 6 9 BPM Atrial Rate : 69 BPM P-R Interval : 132 ms QRS Duration : 90 ms Q-T Interval : 414 ms QTC Calculation(Bazett) : 443 ms Calculated P [place] : 69 degrees Calculated R [place] : 9 degrees Calculated T [place] : 17 degrees NORMAL SINUS RHYTHM WITH SINUS ARRHYTHMIA NORMAL ECG NO PREVIOUS ECGS AVAILABLE Confirmed by DO JEFFREY RYAN ([id number]), ESTRELLA Kapoor ([id number]) on 04/28/2022 12:51:43 PM NAME : ABIODUN MCDONNELL PID : [id number] : 1980 Gender : Male Race : ORD : Procedure Date : Apr 28 2022 09:09:11 Edit Date : Apr 28 2022 12:51:45 Diagnosis: NORMAL SINUS RHYTHM WITH SINUS ARRHYTHMIA NORMAL ECG NO PREVIOUS ECGS AVAILABLE Confirmed by DO JEFFREY RYAN ([id number]), ESTRELLA Kapoor ([id number]) on 04/28/2022 12:51:43 PM Test Reason : Location : 80 : [facility] ED Overread By : DO JEFFREY RYAN Edited By : ESTRELLA MALLORY Referred By : , Acquired by : NATALIE DILLARD Normal [facility] HIGH SENSITIVITY TROPONIN To n 04-28-2022 HIGH SENSITIVITY KARIS 7 ng/L Normal <12 [facility] Comment on above: Order Comment: Carolina pacheco Type: BLOOD SPECIMENOrdering Facility: [facility] Address: [address] [place] [address] Result Comment: When assessing risk for acute [...] day MACE. Performed By: #### H STNT ####[facility] [id number] [address] [place] HIGH SENSITIVITY KARIS 8 ng/L Normal <12 [facility] Comment on above: Order Comment: Carolina pacheco Type: BLOOD SPECIMEN Ordering Facility: [facility] Address: [address] [place] [address] Result Comment: When assessing risk for acute [...] day MACE. Performed By: #### H STNT, 18400-1, 87389-2 #### [facility] CLIA [id number] [address] [place] NT-proBNP [facility] 04-28 Natriuretic peptide.B prohormone N-Terminal [Mass/Vol] <50 Normal <125 [facility] Comment on above: Order Comment: Carolina pacheco Type: BLOOD SPECIMEN Ordering Facility: [facility] Address: [address] [place] [address] Performed By: #### H STNT, 25760-5, 58780-0 #### [facility] CLIA [id number] [address] [address] [id number] [place] XR CHEST 1V [...] Apr 28 2022 10:15AM EST [id number] Normal [facility] Provider Note - ED v2on - Provider [...] by speech recognition technology. Minor errors in cupboard builder may be present. Please contact for clarification [...] Reference Range: STRAW,YELLOW Appearance, Urine CLEAR Specific [place], Urine 1.027 pH, Urine 5.0 Protein, Urine NEGATIVE Glucose, Urine NEGATIVE Blood, Urine NEGATIVE Ketones, Urine NEGATIVE Bilirubin, Urine NEGATIVE Urobilinogen, Urine 2.0 H Nitrite, Urine NEGATIVE Leukocyte Esterase, Urine NEGATIVE Radiology Results: Impression: Lungs are clear. No evidence of left rib fracture. Xray Ribs Unilateral with PA Cxr 3 View [Oct 13 2019 8:36AM] VITAL SIGNS: T PRBP SpO2O2(LPM) %FiO2 Method 13-Oct-2019 07:49:00-36.95435548/55 97 room air, no respiratory support EKG INTERPRETATION: EKG Date/Time: 13-Oct-2019 08:30 Rate: 60 Rhythm: NSR Interval: NSR STEMI: no [place]: Normal Prior EKG: no old EKG available [...] Triage - ED 13-Oct-2019 07:49 Normal [facility] RIBS, UNILATERAL, W PA CXR 3 VIEWSon 10-13-2019 RIBS, UNILATERAL, W PA CXR 3 VIEWS Patient Name: ABIODUN MCDONNELL STUDY: RIBS, UNILATERAL, W PA CXR 3 VIEWS; 10/13/2019 8:28 am INDICATION: left flank pain. COMPARISON: None. ACCESSION NUMBER(S): [id number] ORDERING CLINICIAN: BRANDY BERGERON TECHNIQUE: Single view of the chest and multiple views of the left ribs FINDINGS: Cardiomediastinal silhouette is negative. Lungs are clear. Left ribs are intact. No evidence of an acute left rib fracture. IMPRESSION: Lungs are clear. No evidence of left rib fracture. Electronically signed by: SHERRY CLEARY MD Normal [facility] Triage - EDon 10-13-2019 Triage - ED [...] than 3 weeks: no Travel outside of [facility]: no Allergies: yes Patient [...] 07:51 by Kimberley Lowe (RN) Normal [facility] URINALYSISon 10-13-2019 Appearance (U) CLEAR Normal CLEAR [facility] Comment on above: Performed By: #### U A #### [address] [place] [address] Bilirubin (U) [Mass/Vol] Negative Normal NEGATIVE [facility] Comment on above: Performed By: #### U A #### [address] [place] [address] BLOOD Negative Normal NEGATIVE [facility] Comment on above: Performed By: #### U A #### [address] [place] [address] Color (U) YELLOW Normal STRAW,YELLOW [facility] Comment on above: Performed By: #### U A #### [address] [place] [address] Glucose [Mass/Vol] Negative Normal NEGATIVE [facility] Comment on above: Performed By: #### U A #### [address] [place] [address] Ketones Ql (U) Negative Normal NEGATIVE [facility] Comment on above: Performed By: #### U A #### [address] [place] [address] Leukocyte esterase Test strip Ql (U) Negative Normal NEGATIVE [facility] Comment on above: Performed By: #### U A #### [address] [address] [address] [place] [address] Nitrite Ql (U) Negative Normal NEGATIVE [facility] Comment on above: Performed By: #### U A #### [address] [id number] [facility] [address] [place] [address] pH (Bld) 5.0 Normal 5.0 - 8.0 [facility] Comment on above: Performed By: #### U A #### [address] [place] [address] Protein (U) [Mass/Vol] Negative Normal NEGATIVE [facility] Comment on above: Performed By: #### U A #### [place] [address] [address] Specific gravity (U) [Rel density] 1.027 Normal 1.005 - 1.035 [facility] Comment on above: Performed By: #### U A #### [place] [address] [address] Urobilinogen Qn (U) 2.0 mg/dL High 0.0 - 1.9 [facility] Comment on above: Result Comment: Due to [...] By: #### U A #### [place] [address] [address] CNOVon 10-10-2019 CNOV Office Visit (EXPUSQ ) -- ABIODUN MCDONNELL ([id number]) 1980 M Date Time Provider Department 10/10/19 [...] for longer than 7 days. Consider taking vjno-mlv-nycsyor Pepcid while using NSAIDS. - A referral to spine center has been created for you. Call central scheduling at [phone] or speak with a patient care brand representative on your way out to schedule [...] up with PCP 4. Family history of Hymera's disease - CONSULT TO INTERNAL MEDICINE; Future Attending Note I have personally performed a face to face assessment of the patient and have reviewed the PA/DRAY TRUCK DRIVER note. My lerma findings include: History: 39 [...] routine follow up. Anel Mayfield PA-C [address] [place] [address] [facility] [phone] Referring Provider: SELF [200] Allergies As of [...] pain [M79.10] Paresthesias [R20.2] Family history of Hymera's disease [Z82.0] Order(s):cyclobenzaprine (FLEXERIL) 10 mg tabletTake 1 tablet every 8 hours as needed for muscle pain/spasmsDisp: 30 tabletRfl: 0 CONSULT TO INTERNAL MEDICINE [9017] Order #: [id number]: 1 FUTURE CONSULT TO SPINE MEDICAL CENTER [278796] Order #: [id number]: 1 FUTURE Prescriptions as of 10/10/2019 Sig: [...] for longer than 7 days. Consider taking vyke-zkf-axlzfog Pepcid while using NSAIDS. - A referral to spine center has been created for you. Call central scheduling at [phone] or speak with a patient care brand representative on your way out to schedule [...] DAY ANEL MITCHELL on 10/10/19 Normal [facility] PROGRESSon 10-10-2019 PROGRESS HNO ID: [id number] Author: Anel Benson) Day Service: ? Author Type: Physician Filtration Supervisor Type: Progress Notes Filed: 10/10/2019 11:30 AM [...] up with PCP 4. Family history of Hymera's disease - CONSULT TO INTERNAL MEDICINE; Future Attending Note I have personally performed a face to face assessment of the patient and have reviewed the PA/DRAY TRUCK DRIVER note. My lerma findings include: History: 39 [...] routine follow up. Anel Mayfield PA-C [address] [place] [address] [facility] [phone] [facility] Provider Note - ED v2on 04-17 [...] antibiotic eyedrops. He will follow-up with an fruit harvest machine operator in the next 48 hours if not [...] SIGNS: T PRBP SpO2O2(LPM) %FiO2 Method 02-May-2019 12:39:00-36.49806428/72 97 room air, no respiratory support CLINICAL IMPRESSION Diagnosis/Annotation: ED Dx Name:Corneal abrasion, left Code:S05.02XA Dispostion: discharged Type: home ATTESTATION Attestation: Supervising physician on site, available for consultation, non-participatory in the evaluation of the care of this patient. CRITICAL CARE TIME Is this a critically ill patient: no Electronic Signatures for Addendum Section: Yulia Helton ([facility]) (Signed Addendum 12-May-2019 14:24) Content in this ED Provider Note was inadvertently removed due to a technical issue but has since been restored by IT. No edit or revision has been made to this document. Electronic Signatures: Yulia Hetlon ([facility]) (Signature Pending) Authored: Provider Note - ED v2 Matty Bah ([facility]) (Signed 02-May-2019 13:02) Authored: Provider Note - ED v2 [place] [facility]) (Signed 02-May-2019 13:30) Authored: Provider Note - ED v2 Co-Signer: Provider Note - ED v2 Last Updated: 12-May-2019 14:24 by Yulia Helton ([facility]) [facility] Triage - EDon 05-02-2019 Triage - [...] obeys commands Best Verbal Response: (V5) oriented [place] Score: 15 Cough lasting greater than 3 [...] 12:40 by Kimberley Lowe (ELICIA) Normal [facility] ED NOTEon 09-19-2017 ED NOTE HNO ID: [id number] thor: Meghan Blancas CTS (Ct)ervice: (none)Author Type: [...] McdonnellDATE: September 20, 2017 : 9:50 AM [facility] ED NOTE HNO ID: [id number] thor: Ivanna Rose CTS (Ct)ervice: (none)Author Type: [...] McdonnellDATE: September 20, 2017 : 10:40 AM [facility] ED NOTE HNO ID: [id number] thor: Nicky ThomsonRn) Andrade Benitezice: (none)Author Type: Registered NurseType: ED NotesFiled: 09/19/2017 7:50 PMNote Text: Pt received written and verbal discharge instructions. Pt verbalizesunderstanding. All questions answered. Pt education on medication anddosages. Pt verbalized understanding. Instructed pt to follow up with PCP.No acute distress noted. Instructed to come back to emergency departmentif symptoms worsen. Pt verbalized understanding. All belongings with pt. [facility] ED NOTE HNO ID: [id number] thor: Genevieve ThomsonRn) Andrade Monsivaisice: (none)Author Type: Registered NurseType: ED NotesFiled: 09/19/2017 7:44 PMNote Text: Pt sitting in results waiting area. No acute distress or complaints atthis time. Will continue to monitor. [facility] ED NOTE HNO ID: [id number] thor: Andrade Felix Rnice: (none)Author Type: Registered NurseType: ED NotesFiled: 09/19/2017 6:55 PMNote Text:Medication given. Patient educated on medication and verbalizedunderstanding. Patient agreeable with POC. Will continue to monitor. [facility] ED NOTE HNO ID: [id number] thor: Andrade Felix Rnice: (none)Author Type: Registered [...] Pt states his fingers have occasional numbness. [facility] ED PROV NOTEon 09-19-2017 ED PROV NOTE HNO ID: [id number] thor: Nanda Barraza) Anayeli: (none)Author Type: Physician AssistantType: ED Provider NotesFiled: 09/19/2017 8:11 PMNote Text:ED Provider NotePatient Name: Abiodun McdonnellMRN: [id number] DATE: 09/19/17HistoryPatient presents with:Back PainNumbnessHPI Comments: The patient is a 37 year old male presenting with back pain.Back Pain: Patient presents for evaluation of low back pain. Symptomshave been present for 6 months and include mid lumbar region and rightlumbar region with no radiating symptoms Pain is described as aching andcramping . Initial inciting event: [facility], but backpain didn't start until a few months after . Symptoms are worst: when upand moving around. Alleviating factors identifiable by patient are: none.Exacerbating factors identifiable by patient are bending, stooping andlifting. Treatments so far initiated by patient:rest, NSAIDs and tramadol. Previous lower back problems: has been having low back pain x 5 months. Recently moved here from [place]. States he was seen there, had XR,MRI. [...] AP/LAT/L5-S1 Final Result IMPRESSION: Negative lumbar spine. Tetryl Dissolver Operator: PSCDuglas Transcribe Date/Time: Sep 19 2017 6:35P Dictated by : MANOJ GARCIA MD This examination was interpreted and the report reviewed and electronically signed by: MANOJ GARCIA MD on Sep 19 2017 6:36PM ESTProceduresMedical Decision Making / ED CourseED Tbehiv70 y.o male with 5 month hx of [...] instructions-were instructed of the importance of close oejbcn-dr-wzuh told that close follow-up is essential for good health and goodoutcomesPlanThe Patient was DISCHARGED: Counseled patient regarding radiology resultsAND suspected diagnosis AND need for follow-up. Discharged home with verbaland written instructions. They were instructed to return as needed forpersistent or worsening symptoms or any new concerns.Condition at time of disposition: stableSIGNATURE: Riki Peña (Paula) Hyqktg44/03/182010 [facility] XR LUMBAR 3V AP/LAT/L5-S1on 09-19-2017 XR LUMBAR [...] the lumbar spine are presented.FINDINGS:There are five shu-uft-ykydobg lumbar vertebra.No fracture or subluxations are noted.The disc spaces are well preserved.There is no significant osteophyte formation.IMPRESSION: Negative lumbar spine.Tetryl Dissolver Operator: SONI Transcribe Date/Time: Sep 19 2017 6:35PDictated by : MANOJ GARCIA MDThis examination was interpreted and the report reviewed and electronically signed by: MANOJ GARCIA MD on Sep 19 2017 6:36PM [id number] [facility] Vital Signs Date Time Vital Sign Value Performing Clinician Facility 12-13-2023 10:51-0400 Body temperature 97.2 [degF] Keyana Amezcua MD Work Phone: [facility] 12-13-2023 10:51-0400 Diastolic blood pressure 84 mm[Hg] Keyana Amezcua MD Work Phone: [facility] 12-13-2023 10:51-0400 Heart rate 95 /min Keyana Amezcua MD Work Phone: [facility] 12-13-2023 10:51-0400 Respiratory rate 18 /min Keyana Amezcua MD Work Phone: [facility] 12-13-2023 10:51-0400 SaO2% (BldA) [Mass fraction] 98 % Keyana Amezcua MD Work Phone: [facility] 12-13-2023 10:51-0400 Systolic blood pressure 131 mm[Hg] Keyana Amezcua MD Work Phone: [facility] 12-06-2023 13:03-0400 Body height 177.8 cm Keyana Amezcua MD Work Phone: [facility] 12-06-2023 13:03-0400 Body mass index (BMI) [Ratio] 26.43 kg/m2 Keyana Amezcua MD Work Phone: [facility] 12-06-2023 13:03-0400 Body temperature 95.9 [degF] Keyana Amezcua MD Work Phone: [facility] 12-06-2023 13:03-0400 Body weight 83.55 kg Keyana Amezcua MD Work Phone: [facility] 12-01-2023 07:00-0400 Body temperature 97.7 [degF] Brandy Bergeron MD Work Phone: [facility] 12-01-2023 07:00-0400 Diastolic blood pressure 64 mm[Hg] Brandy Bergeron MD Work Phone: [facility] 12-01-2023 07:00-0400 Heart rate 73 /min Brandy Bergeron MD Work Phone: [facility] 12-01-2023 07:00-0400 Respiratory rate 16 /min Brandy Bergeron MD Work Phone: [facility] 12-01-2023 07:00-0400 SaO2% (BldA) [Mass fraction] 92 % Brandy Bergeron MD Work Phone: [facility] 12-01-2023 07:00-0400 Systolic blood pressure 112 mm[Hg] Brandy Bergeron MD Work Phone: [facility] 11-30-2023 19:29-0400 Body height 177.8 cm Brandy Bergeron MD Work Phone: [facility] 11-30-2023 19:29-0400 Body mass index (BMI) [Ratio] 26.89 kg/m2 Brandy Bergeron MD Work Phone: [facility] 11-30-2023 19:29-0400 Body weight 85 kg Brandy Bergeron MD Work Phone: [facility] 06-12-2018 16:56-0400 BP Diastolic 82 mm[Hg] [facility]-12-2018 16:56-0400 BP Systolic 126 mm[Hg] [facility] 06-12-2018 16:51-0400 BMI (Body Mass Index) 28.94 kg/m2 Crow Roman [facility] 06-12-2018 16:51-0400 Body Temperature 98.91 [degF] Crow Roman [facility] 06-12-2018 16:51-0400 BP Diastolic 82 mm[Hg] Crow Roman [facility] 06-12-2018 16:51-0400 BP Systolic 129 mm[Hg] Crow Roman [facility] 06-12-2018 16:51-0400 Height 175.26 cm [facility] 06-12-2018 16:51-0400 Pulse (Heart Rate) 88 /min Crow Jessie [facility] 06-12-2018 16:51-0400 Pulse Oximetry 95 % [facility] 06-12-2018 16:51-0400 Respiratory Rate 18 /min [facility] 06-12-2018 16:51-0400 Weight 88.9 kg Crow Roman [facility] Encounters Encounter Date Encounter Type Care Provider Facility Start: 03-02-2024 End: 03-02-2024 Emergency department patient visit SAM BRANDT [facility] Start: 03-01-2024 End: 03-01-2024 Emergency department patient visit WANDY REGAN [facility] Start: 12-13-2023 End: 12-13-2023 ambulatory [facility] Start: 12-13-2023 End: 12-13-2023 Subsequent hospital visit by physician Keyana Amezcua MD Work Phone: [facility] [place] Comment on above: Sialoadenitis of sub mandibular gland (Primary Dx); Salivary stone Start: 12-06-2023 End: 12-07-2023 ambulatory [facility] Start: 12-06-2023 End: 12-07-2023 [facility]: 12-06-2023 End: 12-06-2023 Office outpatient visit 25 minutes Keyana Amezcua MD Work Phone: [facility] Comment on above: Pre-op testing; Salivary stone Start: 12-06-2023 End: 12-06-2023 Patient encounter status Keyana Amezcua MD Work Phone: [facility] Start: 12-05-2023 End: 12-05-2023 ambulatory [facility] Start: 12-05-2023 End: 12-05-2023 Office outpatient new 30 minutes Dominick Cummings MD Work Phone: [facility] Physician Kathy[place] Comment on above: Sialoadenitis of sub mandibular gland (Primary Dx); Sialolithiasis of submandibular gland Start: 11-30-2023 End: 12-01-2023 ambulatory [facility] Start: 11-30-2023 End: 12-01-2023 Evaluation and management of inpatient Brandy Bergeron MD Work Phone: [facility] [address] Comment on above: Sialoadenitis of sub mandibular gland (Primary Dx); Submandibular lymphadenopathy; Submandibular abscess; 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 Start: 06-12-2018 End: 06-12-2018 Crow BOLAND Work Phone: [facility] Start: 01-11-2018 Patient encounter Alejandra Rai DMD [facility] Start: 01-11-2018 End: 01-11-2018 Alejandra Rai DMD Work Phone: [facility] Start: 12-31-2017 End: 12-31-2017 Office/outpatient visit, est, level 3 Nancy Douglas OD Work Phone: [facility] Start: 12-31-2017 Patient encounter Nancy Douglas OD [facility] Start: 12-31-2017 End: 12-31-2017 Nancy Douglas OD Work Phone: [facility] Start: 12-26-2017 Patient encounter Alejandra Rai DMD [facility] Start: 12-26-2017 End: 12-26-2017 Alejandra Rai DMD Work Phone: [facility] Start: 09-27-2017 End: 09-27-2017 Mark Blevins DDS Work Phone: [facility] Start: 09-24-2017 End: 09-24-2017 Mark Blevins DDS Work Phone: [facility] Start: 09-19-2017 End: 09-19-2017 Emergency department patient visit UNKNOWN [facility] Start: 04-22-2010 End: 04-22-2010 Oscar Gee MD Work Phone: [facility] Encounter for dental examination and cleaning with abnormal findings Crow oRman [facility] Encounter for dental examination and cleaning without abnormal findings Crow Roman [facility] Encounter for dental examination and cleaning without abnormal findings Crow Baumanngaby [facility] Patient encounter procedure Crow Roman [facility] Routine general medi silvestre examination at a health care facility Crow Roman [facility] Procedures Date Procedure Procedure Detail Performing [...] Auto Different ial panel - Blood BASIA MURLILO Start: 11-30-2023 INSERT PERIPHERAL IV CORAL BRIAN MURILLO Start: 11-30-2023 Basic metabolic pane l calcium total Bobbi Pulidoirisvelasquez DO Work Phone: Start: 06-12-2018 End: 06-12-2018 Urnls dip stick/tablet rgnt non-auto w/o micrscp Crow Roman [employer] Start: 01-11-2018 End: 01-11-2018 AMALGAM TWO SURFACES [...] 2) Zoste r Vaccines (1 of 2) [facility] Start: 12-13-2023 End: 12-13-2023 Admission to same day surgery center 12/13/2023 7:15 AM EDT - 12/13/2023 9:30 AM EDT Surgery [facility] [place] [address] [place] [address] [place] [address] [address] Department of Otolaryngology, Head and Neck Surgery [place] [id number] Sialolithotomy [59307 (CPT )] [facility] [place] Comment on above: Sialolithotomy [4233 0 (CPT )] Start: 12-13-2023 End: 12-13-2023 Sialot submndblr sublngl/prtd uncomp intraoral Sialolithotomy Salivary stone 12/13/2023 7:15 AM EDT Virtual [facility] [place] Start: 12-13-2023 Subsequent hospital visit by physician 12/13/2023 5:45 AM EDT Hospital Encounter [facility] [place] [address] [place] [address] [place] [address] [address] Department of Otolaryngology, Head and Neck Surgery [place] [id number] [facility] [place] Start: 05-18-2023 Influenza vaccination Influenza Vacc ine (#1) [facility] Start: 06-12-2018 End: 06-12-2018 Lifestyle education regarding diet Lifestyle education regarding diet [facility] Start: 01-11-2018 End: 01-11-2018 Abiodun Mcdonnell [facility] Start: 12-31-2017 End: 12-31-2017 Abiodun Mcdonnell [facility] Start: 04-24-2010 DTaP/Tdap/Td Vaccine s (1 - Tdap) DTaP/Tdap/Td Vaccines (1 - Tdap) [facility] Start: 1999 Diabetes mellitus screening Diabetes Screening [facility] Start: 1999 Hepatitis C screening Hepatitis C [facility] Start: 1987 Pneumococcal Vaccine : Pediatrics (0 to 5 Years) and At-Risk Patients (6 to 64 Years) (1 - PCV) Pneumococcal Vaccine: Pediatrics (0 to 5 Years) and At-Risk Patients (6 to 64 Years) (1 - PCV) [facility] Start: 1982 MMR Vaccines (1 of 1 - Standard series) MMR Vaccines (1 of 1 - Standard series) [facility] Start: 1982 Varicella vaccination Varicell a Vaccines (1 of 2 - 2-dose childhood series) [facility] Start: 1981 COVID-19 Vaccine (#1) COVID-19 Vacci ne (#1) [facility] Start: 1981 Hepatitis B Vaccines (1 of 3 - 3-dose series) Hepatitis B Vaccines (1 of 3 - 3-dose series) [facility] Start: 1981 HIV screening HIV Screening [facility] Start: 1981 Lipid panel Lipid Panel [facility] Start: 1981 Yearly Adult Physical Yearly Adult P hysical [facility] Electrocardiogram, 12-lead PRN ACS symptoms Electrocardiogram, 12-lead PRN ACS symptoms ECG Routine As needed until discontinued starting 12/01/2023 [facility] Work Phone: Comment on above: As needed until disc ontinued starting 12/01/2023 End: 11-30-2023 Streptococcus pyogenes DNA [Presence] in Throat by TARIK with probe detection Group A Streptococcus, PCR Microbiology STAT Once (Lab) for 1 Occurrences starting 11/30/2023 until 11/30/2023 [facility] Service [facility] Work Phone: Comment on above: Once (Lab) for 1 Occ urrences starting 11/30/2023 until 11/30/2023 Surgical pathology study Surgica l Pathology Exam Pathology and Cytology Routine Salivary stone Release Upon Ordering for 1 Occurrences starting 12/13/2023 [facility] Service [facility] Work Phone: Comment on above: Release Upon Orderin g for 1 Occurrences starting 12/13/2023 Td (7 yrs or older) [facility] Immunizations Immunization Date Immunization Notes Care Provider Fa richarty NEGATED: Highlighted row has not occurred!06-12-2018 influenza, injectable, quadrivalent, preservative free Crow Ondobo [facility] Comment on above: Source: New Immuniza tion Record NEGATED: Highlighted row has not occurred!06-12-2018 tetanus toxoid, reduced diphtheria toxoid, and acellular pertussis vaccine, adsorbed Crow Ondobo [facility] Comment on above: Source: New Immuniza tion Record NEGATED: Highlighted row has not occurred! tetanus and diphtheria toxoids, adsorbed, for adult use Alejandra Rai [facility] Comment on above: Source: New Immuniza tion Record Payers Date Payer Category Payer Unknown [id number] 2023 Unknown ERICA MALDONADO P [id number] 2023-Present [address] [place] [address] [id number] 2023 Unknown [id number] 2017 Private Health Insurance [facility] [id number] 2017-Present [address] [place] [address] [id number] 2017 Private Health Insurance [id number] 2014 Medicaid [id number] 1981 Unknown [id number] 1981 Unknown [id number] 1981 Unknown [id number] 1981 Unknown [id number] 1981 Unknown [id number] 1981 Unknown [id number] Social History Date Type Detail Facility Sex Assigned At Male Rama mata [facility] Start: 12-31-2017 End: 12-01-2023 Tobacco smoking status PRIS Unknown if ever smoked [facility] Start: 12-31-2017 Alcohol intake [facility] Start: 06-12-2018 Tobacco smoking status NHIS Light tobacco smoker [facility] Start: 06-12-2018 Alcohol intake beer occasionally [facility] Start: 06-12-2018 History of tobacco use Occasional cigarette smoker [facility] Start: 06-12-2018 Nutritional observable coffee and tea [facility] Start: 06-12-2018 Tobacco use and exposure Cigarette: No Details Available Quantity Details - Cigarette: 7 Cigarettes per day [facility] History of tobacco use Passive smoker [facility] Work Phone: Start: 12-01-2023 End: 12-13-2023 Alcohol intake Ex-drinker (finding) [facility] Work Phone: Start: 12-01-2023 End: 12-06-2023 History of Social function [facility] Work Phone: Start: 12-01-2023 End: 12-06-2023 Alcohol Use Disorder Identification Test - Consumption [AUDIT-C] [facility] Work Phone: How often to you hav e a drink containing alcohol? Patient declined [facility] Work Phone: In the past 12 month s, was there a time when you were not able to pay the mortgage or rent on time? No [facility] Work Phone: Start: 1981 Sex Assigned At Not on file [facility] Work Phone: Start: 11-20-2023 End: 12-13-2023 Exposure to SARS-CoV-2 (event) Not sure [facility] Work Phone: Start: 12-06-2023 End: 12-13-2023 Tobacco smoking status NHIS Smokes tobacco daily [facility] History of tobacco use [facility]: History of tobacco use Cigar Smoker [facility] Work Phone: Start: 12-06-2023 Tobacco Comment Black and mild [facility] Work Phone: Clinical Notes 11-30-2023 to 12-06-2023 [...] Present Illness: 43 y.o. male presents to [facility] on 12/06/23 with a left submandibular [...] to express purulent fluid from the left Hays's duct Lips: No lesion. Oral cavity: No [...] lymphadenopathy Impression/Plan: 43 y.o. male presents to [facility] on 12/06/23 with a left submandibular [...] with the procedure. documented in this encounter [facility] Work Phone: 12-05-2023 History of Presen t [...] & Neck Surgery documented in this encounter [facility] Work Phone: 12-01-2023 History of Presen t [...] place to sleep or slept in a longterm (including now)? N Transportation Needs In the [...] to hospitalization No documented in this encounter [facility] Work Phone: 12-01-2023 Hospital course Narrative Discharge [...] Your Medications These medications were sent to [facility] [address], [address], [place] [facility] [address] Hours: 9 AM to 6 PM Mon-Fri, [...] December 05, 2023 at 11:50 AM at [facility]. I let ENT know that the [...] be noted that the patient lives in [place] and is up here working. Otherwise patient's [...] Darling Ackerman MD documented in this encounter [facility] Work Phone: 12-01-2023 Consult note Formatting of th is note might be different from the original. Consults Reason For Consult Left submandibular sialolithiasis complicated with sialoadenitis History Of Present Illness Abiodun Mcdonnell is a 43 y.o. male presenting with left submandibular pain. In summary, Abiodun Mcdonnell, a 43-year-old male, who came to [facility] ER last night for persistent left-sided neck pain. He visited [facility] emergency department last Sunday, ~5 days ago [...] left ear pain. COMPARISON: None. ACCESSION NUMBER(S): [id number] ORDERING CLINICIAN: BOBBI SMITH TECHNIQUE: Axial CT [...] Tita Brennan 11/30/2023 10:37 PM Dictation workstation: [id number] Assessment/Plan Dx: Left submandibular sialolithiasis complicated with [...] can come over to see me at [facility] in [place], [address], on Sunday12.05.2023 at 11:50 am; or alternatively he can come to [facility] [address], on Sunday12.04.2023 at 11:50 am; for follow up and removal of the stone. [facility] Work Phone: 12-01-2023 Consult note Formatting of th is note might be different from the original. Consults Reason For Consult Left submandibular sialolithiasis complicated with sialoadenitis History Of Present Illness Abiodun Mcdonnell is a 43 y.o. male presenting with left submandibular pain. In summary, Abiodun Mcdonnell, a 43-year-old male, who came to [facility] ER last night for persistent left-sided neck pain. He visited [facility] emergency department last Sunday, ~5 days ago [...] left ear pain. COMPARISON: None. ACCESSION NUMBER(S): [id number] ORDERING CLINICIAN: BOBBI SMITH TECHNIQUE: Axial CT [...] Tita Brennan 11/30/2023 10:37 PM Dictation workstation: [id number] Assessment/Plan Dx: Left submandibular sialolithiasis complicated with [...] can come over to see me at [facility] in [place], [address], on Sunday12.05.2023 at 11:50 am; or alternatively he can come to [facility] [address], on Sunday12.04.2023 at 11:50 am; for follow up and removal of the stone. documented in this encounter [facility] Work Phone: 12-01-2023 Plan of care note Problem: Pain Goal: My pain/discomfort is manageable Outcome: Progressing The patient's goals for the shift include The clinical goals for the shift include antibiotics [facility] 12-01-2023 Miscellaneous Notes Problem: Pain Goal: My pain/discomfort is manageable Outcome: Progressing The patient's goals for the shift include The clinical goals for the shift include antibiotics The patient's goals for the shift include The clinical goals for the shift include antibiotics documented in this encounter [facility] Work Phone: 12-01-2023 Plan of care note The patient's goals for the shift include The clinical goals for the shift include antibiotics [facility] Work Phone: 12-01-2023 Nurse Note Patient arrived from ED [facility] Work Phone: 12-01-2023 Nurse Note Patient arrived from ED documented in this encounter [facility] Work Phone: 12-01-2023 History and physical note History Of Present Illness Abiodun Mcdonnell is a 43 y.o. male presenting with Left-Sided Neck Pain. The patient went to [facility] emergency department on Sunday because of some [...] DVT This Dictation was Transcribed using a [employer] Voice Recognition System Device (with Compatible Computer + Software) and as such may contain Grammatical Errors and Unintentional Typing Misprints. I spent 31 minutes in the professional and overall care of this patient. Rocio Pan MD [facility] Work Phone: 12-01-2023 History and physical note History Of Present Illness Abiodun Mcdonnell is a 43 y.o. male presenting with Left-Sided Neck Pain. The patient went to [facility] emergency department on Sunday because of some [...] DVT This Dictation was Transcribed using a [employer] Voice Recognition System Device (with Compatible Computer + Software) and as such may contain Grammatical Errors and Unintentional Typing Misprints. I spent 31 minutes in the professional and overall care of this patient. Rocio Pan MD documented in this encounter [facility] Work Phone: 11-30-2023 Emergency department Note Department of Emergency Medicine ED Provider Note Admit Date/RoomTime: 11/30/2023 7:33 PM ED [facility] History of Present Illness: Chief Complaint Patient [...] Tita Brennan 11/30/2023 10:37 PM Dictation workstation: [id number] CT soft tissue neck w IV contrast [...] Tita Brennan 11/30/2023 10:37 PM Dictation workstation: [id number] ED COURSE/MEDICAL DECISION MAKING Medical Decision Making: [...] made to ensure accuracy; however, inadvertent computerized cupboard builder errors may be present Jyothi Pisano APRN-GENESIS 11/30/23 9619 Associated attestation - Brandy Bergeron MD - [...] left-sided neck pain. The patient went to [facility] emergency department on Sunday because of some [...] D.O. 7:44 PM documented in this encounter [facility] Work Phone: 11-30-2023 Emergency department Triage note [...] left-sided neck pain. The patient went to [facility] emergency department on Sunday because of some [...] and disposition Bobbi Smith D.O. 7:44 PM [facility] Work Phone: 11-30-2023 Physician Emergency department Note Department of Emergency Medicine ED Provider Note Admit Date/RoomTime: 11/30/2023 7:33 PM ED Room: [facility] History of Present Illness: Chief Complaint Patient [...] Tita Brennan 11/30/2023 10:37 PM Dictation workstation: [id number] CT soft tissue neck w IV contrast [...] Tita Brennan 11/30/2023 10:37 PM Dictation workstation: [id number] ED COURSE/MEDICAL DECISION MAKING Medical Decision Making: [...] made to ensure accuracy; however, inadvertent computerized cupboard builder errors may be present Jyothi Pisano APRN-GENESIS 11/30/23 121 Associated attestation - Brandy Bergeron MD - [...] Dr. Cummings and admitting hospitalist Dr. 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 Sialoadenitis of submandibular gland Submandibular abscess Submandibular lymphadenopathy documented in this encounter [facility] Work Phone: Evaluation note* Diagnosis Sialoadenitis of submandibular gland- Primary Sialolithiasis of submandibular gland documented in this encounter [facility] Work Phone: Evaluation note* Diagnosis Pre-op testing Unspecified pre-operative examination Salivary stone Sialolithiasis Salivary stone- Primary Sialolithiasis Salivary stone Sialolithiasis documented in this encounter [facility] Work Phone: Evaluation note* Diagnosis Salivary stone- Primary Sialolithiasis Sialoadenitis of submandibular gland documented in this encounter [facility] Work Phone: Instructions Date Instruction Additional Infor [...] section and content) DATE CREATED AUTHOR 03/12/2018 [facility] DATE CREATED AUTHOR AUTHOR'S ORGANIZ ATION 07/12/2018 [facility] DATE CREATED AUTHOR AUTHOR'S ORGANIZ ATION 12/02/2018 [facility] DATE CREATED AUTHOR AUTHOR'S ORGANIZ ATION 10/10/2019 [facility] DATE CREATED AUTHOR AUTHOR'S ORGANIZ ATION 10/15/2019 [facility] DATE CREATED AUTHOR AUTHOR'S ORGANIZ ATION 10/09/2020 [facility] DATE CREATED AUTHOR AUTHOR'S ORGANIZ ATION 04/29/2022 [facility] DATE CREATED AUTHOR AUTHOR'S ORGANIZ ATION 12/06/2023 [facility] DATE CREATED AUTHOR AUTHOR'S ORGANIZ ATION 12/07/2023 [facility] DATE CREATED AUTHOR AUTHOR'S ORGANIZ ATION 12/14/2023 [facility] DATE CREATED AUTHOR AUTHOR'S ORGANIZ ATION 12/28/2023 [facility] DATE CREATED AUTHOR AUTHOR'S ORGANIZ ATION 03/03/2024 [facility] Reason for Visit (unrecogniz ed section and [...] Diagnoses Salivary stone Salivary stone [K11.5] Procedures DC SIALOT SUBMNDBLR SUBLNGL/PRTD UNCOMP INTRAORAL [place] [address] Department of Otolaryngology, [place] [address] [facility] [place] [address] [place] [address] Referral ID Status Reason Start Date Expiration Date Visits Re quested Visits Authorized [id number] 1 Scheduled Active and Recently Administ [...] Do not crush, chew, or split. HYDROcodone-acetaminophen ([place]) 5-325 mg per tablet 1 tablet 1 [...] Care Teams (unrecognized sec tion and content) Playback Operator Relationship Specialty Start Date End Date Generic Provider, No Assigned Pcp, [place] [address] PCP - General Blade Boner 12/13/23 FOR RECORDS PERTAINING TO PATIENTS WHO [...] BE BASED ON THE PRIMARY CLINICAL RECORDS. [facility] provides no warranty or guarantee of the accuracy or completeness of information in this document.
--- NOTE | 2025-04-27 07:20 | EDS_ITS ---
HPI History of Present Illness Chief Complaint: Allergic Reaction Narrative Narrative: Patient is a 45-year-old male presenting emergency department for left eye irritation. Patient states that Sunday he took his contact out and he feels like he scratched his eye. States he has been having pain since. He reports that he does wear contacts. He has had no change to his vision. Denies any blurry vision. Reports some watery discharge out of his eye. Reports some mild photophobia. Denies any swelling around the eye. PFSH PFSH Medical History no medical history Home Medications ?Medication ?Instructions ?Recorded ?Last Taken ?Type ciprofloxacin HCl 0.3 % eye 1 applic LEFT EYE .4 times a day 5 04/27/25 Unknown Rx ointment (Ciloxan) days #3.5 grams Allergy/AdvReac Type Severity Reaction Status Date / Time Penicillins (PCN) Allergy Rash Verified 04/27/25 05:44 Social History Smoking Status: Current every day smoker tobacco type: cigarettes ROS ROS ED ROS Narrative see HPI EXAM Physical Exam Narrative Exam Narrative: Vital signs: Reviewed General: Alert and oriented. No acute distress HEENT: Head is normocephalic and atraumatic, sinuses nontender, pupils equal round and reactive. Injected conjunctive a of the left eye. There is no purulent discharge. No pain with extraocular movements. No proptosis. No haziness. No consensual photophobia. Nares are patent. Oropharynx and throat exams normal. Neck: Supple without lymphadenopathy nontender Cardiovascular: Regular rate and rhythm, no murmurs. No rubs or gallops. Normal S1 and S2 Respiratory: Clear to auscultation bilaterally. No wheezes, rales, rhonchi Abdominal: Soft and nontender. Normal bowel sounds. No guarding or rebound. Nonsurgical abdomen Extremities: No tenderness. No bruising. Normal range of motion. Normal sensation. Skin: No rash or redness. Neurological: Cranial nerves II through XII are grossly intact. Normal strength and sensation. Normal cerebellar function The rest of the physical exam is unremarkable Const Vital Signs: 04/27/25 05:41 04/27/25 07:24 Temperature 98.4 F 98.1 F Temperature Source Oral Pulse Rate 83 75 Respiratory Rate 16 16 Blood Pressure 129/75 H 127/71 H Blood Pressure Mean 93 89 Pulse Ox 98 100 Oxygen Delivery Method Room Air MDM MDM MDM Narrative Medical decision making narrative: Patient is a 45-year-old male presenting to the emergency department for left eye pain. Patient was seen and examined. Vitals are stable. Patient resting in bed comfortably no acute distress. Differential includes but is not limited to: Corneal abrasion, keratitis, uveitis, iritis, conjunctivitis, glaucoma Visual acuity is normal. There is no pain with extraocular movements and no consensual photophobia, less likely uveitis or iritis. Patient had no risk factors recently for keratitis including no UV exposure. Normal eye pressures, less likely glaucoma. No purulent discharge less likely bacterial conjunctivitis. On exam there appears to be a small corneal abrasion in the 7 o'clock position. Had improvement in pain with the tetracaine drops, consistent with corneal abrasion. No foreign body seen on inspection or lid eversion. He was prescribed ciprofloxacin ophthalmic drops. Instructed to use these 4 times a day for the next week. He was given ophthalmology follow-up. Instructed not to wear his contacts until follow-up with the professor of family medicine. He was instructed to come back with any changes to his vision, worsening redness or pain. He understands. Your evaluation in the Emergency Department did not reveal any acute reason for admission. However, I want to emphasize that you may be early in the course of a disease process or illness even if it is not present. For this reason you should follow-up within 24 hours for reevaluation with either your primary care physician or if necessary back here in the Emergency Department. You should return to the Emergency Department immediately if your symptoms worsen or new symptoms develop. Discharge Plan Triage Chief Complaint: Allergic Reaction ED Provider: Chanelle Andrea Dx/Rx/DC Orders Clinical Impression: Abrasion, corneal Prescriptions: New Ciloxan 0.3 % ointment 1 applic LEFT EYE .4 times a day 5 Days Qty: 3.5 0RF Stand Alone Forms: ED Work / School Excuse Primary Care Provider: Care Physician,No Primary Referrals: Conrado Mcallister MD [Med Staff - Active Staff] - 1 Day [facility] Doctor,Out of [Non-Staff] - Activity Restrictions/Additional Instructions: Your evaluation in the Emergency Department did not reveal any acute reason for admission. However, I want to emphasize that you may be early in the course of a disease process or illness even if it is not present. For this reason you should follow-up within 24 hours for reevaluation with either your primary care physician or if necessary back here in the Emergency Department. You should return to the Emergency Department immediately if your symptoms worsen or new symptoms develop. Print Language: Citizen Of [place] Disposition Disposition: Home, Self Care Discharge Date/Time: 04/27/25 07:25
[2025-04-27 07:24] VITALS: BP 127/71; PULSE 75; RESP 16; TEMP 36.7; O2SAT 100
== END 2025-04-27 07:25 | disposition home or self-care (01) ==
PROVIDERS: Emergency Provider Student in an Organized Health Care Education/Training Program; Visit Provider Student in an Organized Health Care Education/Training Program
DX: S05.02XA Injury of conjunctiva and corneal abrasion without foreign body, left eye, initial encounter (principal); F17.210 Nicotine dependence, cigarettes, uncomplicated; W26.8XXA Contact with other sharp object(s), not elsewhere classified, initial encounter
CPT/HCPCS: 99282

== ENCOUNTER 2025-04-28 07:14 | Emergency (ER) | payer BC, SELFPAY ==
[2025-04-28 07:14] VITALS: BP 141/78; BP 147/85; PULSE 78; PULSE 82; RESP 14; RESP 16; TEMP 36.7; TEMP 37.2; O2SAT 99; BMI 27.3
--- NOTE | 2025-04-28 07:29 | EX.ED.VIS.EY ---
HPI History of Present Illness Chief Complaint: Eye Problem Informant: patient Narrative Narrative: Patient is a 45-year-old male who reports no significant past medical issues. He states he was seen yesterday secondary to injury to his left eye and was diagnosed with a corneal abrasion. He states he felt better when he was in the ER after he received some drops. However he states that the numbing solution wore off and since that time he has been having persistent pain. 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 He denies any repeat trauma but secondary to the persistent pain comes in for evaluation. [facility] Medical History no medical history Home Medications ?Medication ?Instructions ?Recorded ?Last Taken ?Type ciprofloxacin HCl 0.3 % eye 1 applic LEFT EYE .4 times a day 5 04/27/25 Unknown Rx ointment (Ciloxan) days #3.5 grams oxycodone-acetaminophen 5 mg-325 1 tab PO Q6H PRN pain 3 days #12 04/28/25 Unknown Rx mg tablet (Percocet) tabs Allergy/AdvReac Type Severity Reaction Status Date / Time Penicillins (PCN) Allergy Rash Verified 04/28/25 07:15 Social History Smoking Status: Current every day smoker tobacco type: cigarettes ROS ROS ED Constitutional Constitutional ED: Denies chills or fever(s) Eyes Eyes: Reports other Details: Positive left eye pain and redness and discharge. Positive photophobia ENT ENT ED: Denies rhinorrhea or sore throat Cardiovascular Cardiovascular: Denies chest pain Respiratory/Chest Respiratory/Chest: Denies cough or dyspnea Gastrointestinal Gastrointestinal: Denies abdominal pain, diarrhea, nausea or vomiting Musculoskeletal Musculoskeletal: Denies myalgias Integumentary Denies rash Neurologic Neurologic: Denies headache(s) EXAM Physical Exam Const Vital Signs: 04/28/25 07:14 Temperature 98.1 F Temperature Source Temporal Pulse Rate 82 Respiratory Rate 14 Blood Pressure 147/85 H Blood Pressure Mean 105 Pulse Ox 99 Oxygen Delivery Method Room Air Positive well nourished and well developed General Appearance ED: well developed HEENT HEENT Narrative: Normocephalic atraumatic Eyes PERRL and EOMs intact bilaterally Eyes Narrative: Pupils are equal reactive to light and accommodation and extraocular muscles are intact The left eye has diffuse scleral injection with purulent discharge noted. There is a corneal abrasion located along the approximately 1 to 2 o'clock position along the pupil and iris. Patient has mild soft tissue swelling of the upper eyelid as well No surrounding erythema to suggest periorbital cellulitis. Neck supple Resp normal respiratory effort and clear to auscultation bilaterally Cardio regular rate and regular rhythm Extremity normal to inspection Neuro oriented x3, CN's II-XII intact bilaterally, moves all extremities and no sensory deficits noted Sensorium / Orientation: alert Motor Exam: strength 5/5 throughout Psych mental status grossly normal Skin Skin Narrative: Mild soft tissue swelling along the left upper eyelid as documented above MDM MDM MDM Narrative Medical decision making narrative: Patient presented to the ER hypertensive but otherwise with stable vitals. He was seen yesterday and diagnosed with a corneal abrasion. There has been no repeat trauma. His physical exam shows scleral injection with purulent discharge and an area of abrasion consistent with his evaluation yesterday. By exam there is no signs of periorbital cellulitis. He presented simply secondary to pain control. He was given tetracaine in the ER and once again had complete resolution of his pain. He was strongly advised that he needs to take the antibiotic eyedrops to prevent a secondary infection and follow-up with ophthalmology to ensure there is no worsening of symptoms. He does state he has appointment with ophthalmology in the next 1 to 2 days. At this time he is once again pain-free he does not have findings of periorbital cellulitis and has already been prescribed antibiotic drops to prevent secondary infection from the abrasion. Therefore do not feel the need for further intervention and he is otherwise safe for discharge with symptomatic care. History & Record Review Discussion w/independent historian: Patient Discharge Plan Triage Chief Complaint: Eye Problem ED Provider: Orestes Mackey Dx/Rx/DC Orders Clinical Impression: Abrasion, corneal Instructions: ED Corneal Abrasion Prescriptions: New oxycodone-acetaminophen [Percocet] 5-325 mg tablet 1 tab PO Q6H PRN (Reason: pain) 3 Days Qty: 12 0RF No Action Ciloxan 0.3 % ointment 1 applic LEFT EYE .4 times a day 5 Days Qty: 3.5 0RF Stand Alone Forms: ED Work / School Excuse Primary Care Provider: Care Physician,No Primary Referrals: Jeniffer Rousseau MD [Med Staff - Active Staff] - Care Physician,No Primary [Primary Care Provider] - Activity Restrictions/Additional Instructions: You have a large corneal abrasion which is causing pain redness and discharge to your left eye. Try to avoid bright lights as this will worsen symptoms. Make sure you are using your Cipro eyedrops to prevent secondary infection. Follow-up with ophthalmology to ensure resolution of symptoms. Return to the ER should you have any further concerns Print Language: [place]ese Disposition Disposition: Home, Self Care Discharge Date/Time: 04/28/25 08:00
[2025-04-28] MEDS: Tetracaine 0.5% Ophthalmic Bottle 1 DRP LEFT EYE (07:35)
== END 2025-04-28 08:00 | disposition home or self-care (01) ==
LOC: ED 07:48
PROVIDERS: Emergency Provider Emergency Medicine; Visit Provider Emergency Medicine
DX: S05.02XA Injury of conjunctiva and corneal abrasion without foreign body, left eye, initial encounter (principal); X58.XXXA Exposure to other specified factors, initial encounter; F17.210 Nicotine dependence, cigarettes, uncomplicated
CPT/HCPCS: 99282